=== PATIENT | male | born 1940 | race Caucasian/White ===

== ENCOUNTER 2019-10-24 12:50 | Outpatient (RCR) | payer MEDICARE, SELFPAY ==
[2019-10-24 15:10] VITALS: BP 128/78; PULSE 57; RESP 18; O2SAT 98; BMI 39.2
== END 2019-12-12 13:00 | disposition home or self-care (01) ==
PROVIDERS: PCP Internal Medicine
DX: J84.10 Pulmonary fibrosis, unspecified (principal)
CPT/HCPCS: G0239

== ENCOUNTER → 2020-11-27 01:47 | Outpatient (CLI) | payer MEDICARE, SELFPAY ==
[2020-11-27 20:24] LABS: SARS-CoV-2 RNA PCR Positive
== END ==
PROVIDERS: PCP Family Medicine; Visit Provider Nurse Practitioner Family
DX: U07.1 COVID-19 (principal); R68.89 Other general symptoms and signs
CPT/HCPCS: C9803; U0003; U0005

== ENCOUNTER 2025-02-28 15:05 | Emergency (ER) | payer MEDICARE, SELFPAY ==
[2025-02-28] VITALS (7 sets, daily range): BP systolic 108–144; BP diastolic 60–80; PULSE 60–100; RESP 13–24; TEMP 36.4; O2SAT 95–100
--- NOTE | ~2025-02-28 | CT_ITS ---
EXAMINATION: CT brain wo con DATE: 02/28/2025 16:53 INDICATION: Trauma due to fall. TECHNIQUE: Computed tomography (CT) of the head was performed without intravenous contrast. The mA was adjusted according to patient size. Iterative reconstruction technique was employed. The dose-length product was 605.33 mGy-cm. COMPARISON: None FINDINGS: No acute intracranial bleed or extra-axial collections. No ventriculomegaly. Age-appropriate cerebral cortical atrophy. Moderate chronic small vessel ischemic change of periventricular white matter. No acute cranial fractures. IMPRESSION: 1. No acute intracranial findings due to trauma. Chronic small vessel ischemic change of periventricular white matter. Reviewed, dictated and finalized at location T. GATION EXAMINER
--- NOTE | ~2025-02-28 | XR_ITS ---
EXAMINATION: XR shoulder RT min 2V DATE: 02/28/2025 17:02 INDICATION: Right shoulder pain post fall TECHNIQUE: AP internally and externally rotated and transscapular Y views of the right shoulder were obtained. COMPARISON: None FINDINGS: Normal alignment. No fracture.Mild glenohumeral osteoarthritis. Moderate acromioclavicular osteoarthritis. Moderate sized anterior subacromial spur. Soft tissues are unremarkable. Small right lung volume with airspace opacities in the upper and lower and most prominent in the mid lung zones. IMPRESSION: 1. Mild right glenohumeral and moderate acromioclavicular osteoarthritis. No acute osseous abnormality. 2. Airspace opacities throughout the right lung most promptly midlung zone with associated decreased lung volume which could represent pneumonia, pulmonary edema or chronic interstitial lung disease. Reviewed, dictated and finalized at location A. SSIONS COORDINATOR IMPRESSION: 1. Mild right glenohumeral and moderate acromioclavicular osteoarthritis. No ac [place] osseous abnormality. 2. Airspace opacities throughout the right lung most promptly midlung zone with associated decreased lung volume which could represent pneumonia, pulmonary ed sp or chronic interstitial lung disease.
--- NOTE | ~2025-02-28 | XR_ITS ---
EXAMINATION: XR hip RT 2V w AP pelvis, 02/28/2025 16:55 TANK SETTER HISTORY: fall, R hip pain COMPARISON: No comparisons available. Findings: No acute fracture or malalignment. Severe degenerative changes Soft tissues unremarkable. Impression: No acute fracture or malalignment. Reviewed, dictated and finalized at location P. SETTER Impression: No acute fracture or malalignment.
--- NOTE | ~2025-02-28 | CT_ITS ---
EXAMINATION: CT cervical spine wo con DATE: 02/28/2025 16:53 INDICATION: Trauma due to fall. TECHNIQUE: Computed tomography (CT) of the cervical spine was performed without intravenous contrast. Automated exposure control and iterative reconstruction technique were employed. The dose-length product was 195.30 mGy-cm. COMPARISON: None FINDINGS: No acute fractures of cervical vertebrae. No compromise of spinal canal due to trauma. Severe degenerative disc changes and facet arthropathy at multiple levels. Bony fusion at C5-6 level. Prominent osteophyte complex at C3-4 level causing significant degree of spinal stenosis and compromise of neural foramen. IMPRESSION: 1. No acute bony lesions of C-spine due to trauma. 2. Severe chronic disc changes at C4, C5-6, C6-7 and C7-T1 levels. Significant compromise of spinal canal by osteophyte complex at C3-4 level. If symptoms warrant further evaluation with MRI is recommended. Reviewed, dictated and finalized at location T. R CARRIER INSPECTOR IMPRESSION: 1. No acute bony lesions of C-spine due to trauma. 2. Severe chronic disc changes at C4, C5-6, C6-7 and C7-T1 levels. Significant compromise of spinal canal by osteophyte complex at C3-4 level. If symptoms war rant further evaluation with MRI is recommended.
--- NOTE | ~2025-02-28 | XR_ITS ---
EXAMINATION: XR chest 1V DATE: 02/28/2025 17:02 INDICATION: Trauma due to fall. TECHNIQUE: A single frontal view of the chest was obtained. COMPARISON: None. 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 Atherosclerotic aorta. Apparent, extensive honeycombing and chronic interstitial fibrosis. Patchy opacification in the mid right lung field and lower left lung field may represent chronic fibrosis. However pneumonia or pulmonary edema is not ruled out. IMPRESSION: 1. Limited evaluation due to lack of prior x-rays for comparison. 2. Cardiomegaly, atherosclerotic aorta and postoperative changes of the heart. 3 patchy honeycomb like opacities of mid right lung field and lower left lung field. Chronic fibrosis versus bilateral pneumonia. Comparison with prior x-rays is recommended. Please correlate with lab results. Follow-up x-rays are also recommended. Reviewed, dictated and finalized at location T. T WORKER IMPRESSION: 1. Limited evaluation due to lack of prior x-rays for comparison. 2. Cardiomegaly, atherosclerotic aorta and postoperative changes of the heart. 3 patchy honeycomb like opacities of mid right lung field and lower left lung f ield. Chronic fibrosis versus bilateral pneumonia. Comparison with prior x-rays is recommended. Please correlate with lab results. Follow-up x-rays are also r ecommended.
--- NOTE | 2025-02-28 16:46 | ED.FALL ---
HPI - Fall General Chief Complaint: Fall Stated Complaint: fall Time Seen by Provider: 02/28/25 15:53 Source: patient Mode of arrival: EMS Limitations: no limitations History of Present Illness HPI Narrative: Patient is an 84-year-old male, with past medical history of dementia, HTN, HLD, CAD, hypothyroidism, chronic hypoxic resp failure on 2-3L NC as needed, who presents to the ED via EMS with report of a fall. Patient is a resident of [facility]. Reports his foot got caught on a chair and he fell. He did hit his head. Denied LOC. Complains of pain to his right-sided neck, right shoulder, right hip. C-collar placed by EMS. Patient is not on any anticoagulation. Takes aspirin 81 mg daily. Denies chest pain, shortness breath, abdominal pain, numbness, lower back pain. Related Data Home Medications ?Medication ?Instructions ?Recorded ?Confirmed ?Last Taken ?Type aspirin 81 mg tablet,delayed 81 mg PO DAILY 07/23/20 07/24/20 Unknown History release (Adult Aspirin Regimen) atorvastatin 80 mg tablet 80 mg PO DAILY 07/23/20 07/24/20 Unknown History donepezil 10 mg tablet 10 mg PO QHS 07/23/20 07/24/20 Unknown History ezetimibe 10 mg tablet 10 mg PO DAILY 07/23/20 07/24/20 Unknown History finasteride 5 mg tablet 5 mg PO DAILY 07/23/20 07/24/20 Unknown History furosemide 40 mg tablet 40 mg PO QAM 07/23/20 07/24/20 Unknown History isosorbide dinitrate 30 mg tablet 30 mg PO BID 07/23/20 07/24/20 Unknown History levothyroxine 88 mcg capsule 88 mcg PO DAILY 07/23/20 07/24/20 Unknown History metoprolol succ 50 1 tablet PO DAILY 07/23/20 07/24/20 Unknown History mg-hydrochlorothiazide 12.5 mg tablet,ext.rel 24 hr [id number] 300 mcg-K 60 1 tablet PO DAILY 07/23/20 07/24/20 Unknown History mcg-lycop 600 mcg-lutein 300 mcg tablet (Centrum Silver Men) sertraline 100 mg tablet 100 mg PO DAILY 07/23/20 07/24/20 Unknown History Allergies Allergy/AdvReac Type Severity Reaction Status Date / Time No Known Allergies Allergy Verified 07/23/20 14:22 Review of Systems Review of Systems: All systems reviewed & are unremarkable except as noted in HPI. All systems reviewed & are unremarkable except as noted in HPI and below [facility] Past Medical History Medical History Abnormal platelets Enlarged prostate BMI 37.0-37.9, adult Surgical History Surgical History (Reviewed 02/28/25 @ 17: by Jovana Bledsoe PA-C) History of heart bypass surgery History of appendectomy Family History Family History (Reviewed 02/28/25 @ 17: by Jovana Bledsoe PA-C) Father Malignant neoplasm of prostate Acute myocardial infarction Mother Hip fracture CHF (congestive heart failure) Sibling Pancreatic cancer Dementia History of agent Louise exposure Social History Social History Smoking status: Never smoker Second hand tobacco smoke exposure: Yes Alcohol intake: never Substance use: never Substance use type: does not use Living arrangements: with family Occupation/Education: retired Additional occupation/education comments: [employer]. Gender identity (if verbalized by the patient): Male Exam Narrative: GENERAL: Elderly but well appearing, well-nourished, non-toxic, in no acute distress. HEAD: Normocephalic, atraumatic. NECK: No significant focal midline spinal tenderness. C-collar in place RESPIRATORY: Airway patent, respirations nonlabored. Clear to auscultation bilaterally, no rales, rhonchi, wheezing. CARDIOVASCULAR: Regular rate and rhythm without murmurs, rubs, or gallops. Peripheral pulses intact and easily palpable ABDOMINAL: Soft, nontender, nondistended. Normoactive BS. MUSCULOSKELETAL: Moves all extremities. No gross deformities. Mild TTP over R lateral hip joint. No significant tenderness over knees girma. Minimal tenderness over R anterior shoulder SKIN: Warm, dry, normal color. NEURO: A&O X2. Speech clear. Cranial nerves II-XII grossly intact. No ataxic movements. PSYCHIATRIC: Appropriate mood and affect. Normal interaction. Course Vital Signs Vital signs: Vital Signs Temperature 97.6 F 02/28/25 15:08 Pulse Rate 100 02/28/25 15:08 Respiratory Rate 16 02/28/25 15:08 Blood Pressure 108/62 02/28/25 15:08 Pulse Oximetry 95 02/28/25 15:08 Oxygen Delivery Nasal Cannula 02/28/25 15:08 Oxygen Flow Rate 2 02/28/25 15:08 Temperature 97.6 F 02/28/25 15:08 Pulse Rate 66 02/28/25 18:15 Respiratory Rate 14 02/28/25 18:15 Blood Pressure 144/79 H 02/28/25 18:15 Pulse Oximetry 97 02/28/25 18:15 Oxygen Delivery Nasal Cannula 02/28/25 15:08 Oxygen Flow Rate 2 02/28/25 15:08 MDM MDM Narrative Medical decision making narrative: Patient presented to ED status post ground level mechanical fall with head injury, pain to right hip. Vital signs stable upon arrival. Patient neurologically intact at baseline, no appreciable focal deficits. History of dementia, A&O x2. Unsure of year. Chronically does wear home oxygen as needed. Oxygen today is stable on this. Hx of pulm fibrosis. Denying any shortness of breath or CP. CT brain and cervical spine without acute traumatic findings. Does show severe chronic disc changes of cervical spine. No acute findings. Chest x-ray w/ patchy honeycomb opacities, possible pulm fibrosis vs PNA. No acute resp complaints by patient. No recent fever/cough. He does have hx of interstitial lung disease/fibrosis per records. Likely all chronic findings. Shoulder x-ray negative X-ray of right hip/pelvis w/o acute fx Discussed imaging findings with patient, overall reassuring workup. Safe for discharge back to assisted. Has remained stable throughout ED stay. Has not required anything for pain control. Advised he may be sore over the next few days. Otherwise resting very comfortably. Given strict return precautions. Discharged in stable condition. Differential Diagnosis Differential Diagnosis: Hip fracture, hip contusion, skull fracture, intracranial hemorrhage, musculoskeletal strain Medical Records I have reviewed the following patient records and this information was taken into consideration when formulating the assessment and plan.: previous labs, previous ER visits, previous hospitalizations and previous clinic visits Imaging Data Attestation: I personally reviewed and interpreted this imaging study as follows: Radiologist's impression: ITS Impressions Head CT 02/28/25 16:53 IMPRESSION: 1. No acute intracranial findings due to trauma. Chronic small vessel ischemic change of periventricular white matter. Cervical Spine CT 02/28/25 16:55 IMPRESSION: 1. No acute bony lesions of C-spine due to trauma. 2. Severe chronic disc changes at C4, C5-6, C6-7 and C7-T1 levels. Significant compromise of spinal canal by osteophyte complex at C3-4 level. If symptoms warrant further evaluation with MRI is recommended. Chest X-Ray 02/28/25 17:03 IMPRESSION: 1. Limited evaluation due to lack of prior x-rays for comparison. 2. Cardiomegaly, atherosclerotic aorta and postoperative changes of the heart. 3 patchy honeycomb like opacities of mid right lung field and lower left lung field. Chronic fibrosis versus bilateral pneumonia. Comparison with prior x-rays is recommended. Please correlate with lab results. Follow-up x-rays are also recommended. Shoulder X-Ray 02/28/25 17:08 IMPRESSION: 1. Mild right glenohumeral and moderate acromioclavicular osteoarthritis. No acute osseous abnormality. 2. Airspace opacities throughout the right lung most promptly midlung zone with associated decreased lung volume which could represent pneumonia, pulmonary edema or chronic interstitial lung disease. Hip/Pelvis X-Ray 02/28/25 17:09 Impression: No acute fracture or malalignment. Discharge Plan Discharge Clinical Impression: Fall from ground level, Closed head injury, Cervical strain, Strain of right hip Patient Disposition: [facility]As[facility] Living Condition: Stable Instructions: Antibiotic Form, Head Injury (ED), Hip Sprain (ED), Shoulder Sprain (ED) Additional Instructions: Patient's imaging did not show any evidence of fracture or traumatic findings. He may be sore over the next few days. Recommend Tylenol as needed for pain, ice to areas of pain. Follow-up with primary care doctor for further evaluation if needed. Return patient to the ED if you experiences recurrent fall or injury, severe pain, numbness, severe dizziness, passing out, unable to keep down food or drink, or any other symptoms of concern. Patient Language: Hungarian Prescriptions: No Action isosorbide dinitrate 30 mg tablet 30 mg PO BID Rx Instructions: allow nitrate-free interval of 12-14 hrs per 24-hr period atorvastatin 80 mg tablet 80 mg PO DAILY furosemide 40 mg tablet 40 mg PO QAM ezetimibe 10 mg tablet 10 mg PO DAILY metoprolol blanc-hydrochlorothiaz 50-12.5 mg tablet extended release 24 hr 1 tablet PO DAILY levothyroxine 88 mcg capsule 88 mcg PO DAILY finasteride 5 mg tablet 5 mg PO DAILY donepezil 10 mg tablet 10 mg PO QHS sertraline 100 mg tablet 100 mg PO DAILY aspirin [Adult Aspirin Regimen] 81 mg tablet,delayed release (DR/EC) 81 mg PO DAILY Centrum Silver Men 300-600-300 mcg tablet 1 tablet PO DAILY Follow-up/Referrals: Solo Salazar MD [Primary Care Provider, Family Practice] Time of Disposition: 17:17
--- NOTE | 2025-02-28 17:53 | PC.NURSE ---
Attempted to call [facility] at this time, no answer.
--- OUTSIDE RECORDS SUMMARY | 2025-02-28 19:57 | XMS_ITS | Continuity of Care Document ---
Author Organization [place] - [facility], [facility] [place] Address [address] [place] [address] Care Team Providers Care Merchandising Director Name Role Phone [facility] FAX OTHER MARTI YARBROUGH Primary Care Provider Assessment Encounter Date Assessment Date Assessment LastModified by Organization Details LastModified Time 02/12/2025 02/12/2025 Labs in AM. HRs/BPs improved. armand Not available 02/12/2025 17:18:59 Plan of Treatment Reminders Order Date Submit Date Provider Last Modified By Organization Details Last Modified Time Details Appointments None record ed. Lab None record ed. Referral None record ed. Procedures None record ed. Surgeries None record ed. Imaging None record ed. Medication Orders None record ed. Patient TargetsNo targets recorded. Patient Instructions Encounter Date Encounter Id Patient Instructions Last Modified By Organization Details Last Modified Time 02/12/2025 [id number] I spent 38 minutes providing care to the patient today. More than 50% of that time was spent in discussing the expected course of the disease, discussing prognosis, coordinating care and counseling of the patient/family. armand Not available 02/12/2025 17:20:05 Reason for Referral None Reported. Results Created Date Observation Date Name Description Value Unit Range Abnormal Flag Note LastModifiedBy Organization Detail LastModifiedTime 02/05/2002/04/2025 XR, chest , 2 view No observ ation record ed. [facility]) [address] [place], [place], [address], 02/06/2025 09:30:57 Result Notes None recorded. Procedures Surgical History Date Name Laterality Status Provider Name and Address Organization Details Recorded Time appendectomy completed Kenneth Juárez [facility] 01/24/2025 09:26:32 coronary artery bypass graft completed Kenneth Juárez [facility] 01/24/2025 09:26:42 Carpal Tunnel Release completed Kenneth Juárez [facility] 01/24/2025 09:27:20 [facility] 01/24/2025 09:27:28 Imaging Results None recorded. Procedure Notes None recorded. Medical Equipment None Reported. Allergies Allergen ID Allergen Name Allergen Category Reaction Reaction Severity Criticality Documentation Date Start Date Code Code System Note Provider Name and Address Organization Details Recorded Time 87934 codeine medicatio n Not available Not available Not available 01/24/2025 2670 [facility] 54435 Product containin g penicilli n (product) medicatio n Not available Not available Not available 01/24/2025 49259 8001 SNOMED [facility] Medications Name Sig Start Date Stop Date Status Note LastModified by Organization Details LastModified Time atorvastatin 80 mg tablet Take 1 tablet every day by oral route. 2024 active Not Available Not Available Not Avai lable metoprolol succinate ER 50 mg tablet,exten ded release 24 hr Take 1 tablet every day by oral route. 02/06 completed Not Available Not Available Not Available Lasix 40 mg tablet Take 1 tablet every day by oral route. 2024 active Not Available Not Available Not Avai lable sertraline 100 mg tablet Take 2 tablets every day by oral route. 2024 active Not Available Not Available Not Avai lable clopidogrel 75 mg tablet Take 1 tablet every day by oral route. 2024 active Not Available Not Available Not Avai lable spironolacto ne 25 mg tablet Take 1 tablet every day by oral route. 2024 active Not Available Not Available Not Avai lable levothyroxin e 88 mcg tablet Take 1 tablet every day by oral route. 2024 active Not Available Not Available Not Avai lable metoprolol succinate ER 25 mg tablet,exten ded release 24 hr Take 0.5 tablets every day by oral route. 2024 active Not Available Not Available Not Avai lable empagliflozi n 10 mg tablet Take 1 tablet every day by oral route. 2024 active Not Available Not Available Not Avai lable metoprolol succinate ER 25 mg capsule sprinkle, ext. release 24 hr Take 1 capsule every day by oral route. 02/08 completed Not Available Not Available Not Available Vitals Date Recorded Body height Heart rate Body temperature Respiratory rate Oxygen saturation Body mass index (BMI) Body weight Systolic And Diastolic Provider Name and Address Organization Details Last Updated DateTime 165.1 cm 64 /min 98 [degF] 18 /min 97 % 27.1 kg/m2 87880.5 6 g 132/66 mm[Hg] [place] [address] [place], [address] , [place] - [facility] 17:13:55 Social History Question Answer Notes LastModified by [employer] Details LastModified Time Tobacco Smoking Status Never Smoker Kenneth Juárez [facility], [place] - [facility] 01/24/2025 09:28:08 What Is Your Code Status? DNR [email or web address] Information not available 01/24/2025 Sex: Unknown Functional Status Question Answer Note LastModified by [employer] Details LastModified Time Do you use any illicit or recreational drugs? No Information not available 01/24/2025 What is your level of alcohol consumption? None Information not available 01/24/2025 Mental Status None recorded. Family History Nothing Reported. Medical History Condition Response Coronary Artery Disease (CAD) Y Vitamin B12 Deficiency Y Benign Prostatic Hyperplasia (BPH) Y Congestive Heart Failure (CHF) Y Asthma Y Sleep Apnea / KATINA Y Hypertension Y Past Encounters Encounter ID Performer Location Encounter Start Date Encounter Closed Date Diagnosis/Indication Diagnosis SNOMED-CT Code Diagnosis ICD10 Code Diagnosis IMO Codes Diagnosis Note [id number] Bettina Yan DO [place] [address] [place] [address] 01/24/2025 21:35:55 01/31/2025 08:10:01 Interstitial lung disease 230320659 J84.9 420062 see above..... 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 196527340 I25.810 41712533 currently no chest pains/p CABG and PCIcontinu e plavix, betablocke r and statin therapyout patient f/u with cardiology as scheduled Benign pro static hyperplasia 501303103 N40.0 90644236 currently no urinary symptoms - he has not been discharged on any meds related to thiswill request home medication list to confirm no usual medication smonitor clinically Hypertensi ve heart disease with congestive heart failure 0423955 I11.0 I50.32 25058235 continue diuretics, betablocke rmonitor blood pressures and adjust meds as clinically indicated Obstructiv e sleep apnea syndrome 94117807 G47.33 762094 continue nighttime cpap with O2 bleed Cobalamin deficiency 190 674224 E53.8 85605 continue replacemen t therapy Acute-on-c hronic respiratory failure 55568376 J96.21 85083269 related to ILD and CHFimprove d with IV diuretics and an increase in his supplement al O2 up to 6 liters/min [place] during his hospitaliz ation now back to usual baseline of 2 liters/min [place] not appear he was treated with antibiotic s or steroids Hypothyroidism 62448443 E03.9 06018108 presumed stable - [facility] checking thyroid studies during his stay if they were not checked during recent hospitaliz ation Impaired cognition 29812 6002 R41.89 251068 no diagnosis of dementia - [facility] for reversible causeswill have speech therapy follow while here Major depr essive disorder 830459751 F32.9 1137600253 continue sertraline Physical deconditioning 8918002287 9102 R53.81 789719 related to advanced age, recent hospitaliz ation, comorbidit iestherapi es have been initiated - he plans to return home alone upon d/c from SNF [id number] Bettina Farrah, DO [facility] [address] [place] [address] 01/25/2025 11:01:02 01/31/2025 08:08:43 Josmv-mm-wvegjpk respiratory failure 84829765 J96.21 61555921 Sec to ILD and CHF. Improved with IV diuretics and an increase in his supplement al O2 up to 6 liters/min [place] during his hospitaliz ation. Now back to usual baseline of 2 liters/min [place]. Does not appear he was treated with antibiotic s or steroids.C ontinue therapies and oxygen supplement ation.RT to follow.[facility] if he follows with pulmonary as an outpatient . Interstiti al lung disease 131843212 J84.9 179146 SEE ABOVE... 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 Currently no chest pain.Jane nue Plavix, Metoprolol , and statin.F/U with cards as above. Benign pro static hyperplasia 929818853 N40.0 77906308 Currently no urinary symptoms. He was not discharged on any meds related to this.Reque sted home medication list to confirm no daily medication s.Monitor clinically . Hypertensi ve heart disease with congestive heart failure 4356023 I11.0 I50.31 38104919 Improved with diuresis.C ontinue Jardiance (new), Metoprolol , Spironolac tone, and PRN Lasix.Cont inue supplement oxygen as above.Cont inue to trend blood pressures, monitor lytes and renal function, and adjust meds as clinically indicated. F/U with cards on 02/01. Obstructiv e sleep apnea syndrome 30193460 G47.33 323007 Stable. Continue nighttime cpap with O2 bleed. Cobalamin deficiency 190 565565 E53.8 51220 Presumed stable. Continue supplement . Hypothyroidism 29847018 E03.9 15830546 Presumed stable. Continue SynthroidM ight consider checking thyroid studies during his stay if they were not checked during recent hospitaliz ation. Impaired cognition 88485 6002 R41.89 511950 No former diagnosis of dementia. Head imaging noted moderate atrophy and ischemic small vessel disease.M onitor for reversible causes.ST is following. Major depr essive disorder 003486399 F32.9 2286424547 Stable. Continue Sertraline . Monitor moods. Physical deconditioning 3688474842 9102 R53.81 163121 Related to advanced age, recent hospitaliz ation, comorbidit ies.Contin ue therapies. He plans to return home alone upon d/c from SNF. [id number] Bettina Yan, DO [facility] [address] [place] [address] 01/30/2025 09:58:45 01/31/2025 08:09:21 Hwamq-ez-jjjqycm respiratory failure 81839230 J96.21 67000903 Sec to ILD and CHF. Improved with IV diuretics and an increase in his supplement al O2 up to 6 liters/min [place] during his hospitaliz ation. Now back to usual baseline of 2 liters/min [place]. Does not appear he was treated with antibiotic s or steroids.C ontinue therapies and oxygen supplement ation.RT to follow.[facility] if he follows with pulmonary as an outpatient . Hypertensi ve heart disease with congestive heart failure 6865759 I11.0 I50.31 13335021 Improved with diuresis.C ontinue Jardiance (new), Metoprolol , Spironolac tone, and PRN Lasix.Cont inue supplement oxygen as above.Cont inue to trend blood pressures, monitor lytes and renal function, and adjust meds as clinically indicated. F/U with cards on 02/01. 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 Currently no chest pain.Jane nue Plavix, Metoprolol , and statin.F/U with cards as above. Interstiti al lung disease 173863189 J84.9 905591 SEE ABOVE... Benign pro static hyperplasia 676610045 N40.0 54593562 Currently no urinary symptoms. He was not discharged on any meds related to this.Reque sted home medication list to confirm no daily medication s.Monitor clinically . Hypothyroidism 73802020 E03.9 83756749 Presumed stable. Continue SynthroidC hecking thyroid panel in AM. Cobalamin deficiency 190 501781 E53.8 18925 Presumed stable. Continue supplement . Obstructiv e sleep apnea syndrome 45957718 G47.33 646129 Stable. Continue nighttime cpap with O2 bleed. Impaired cognition 60361 6002 R41.89 194539 No former diagnosis of dementia. Head imaging noted moderate atrophy and ischemic small vessel disease.M onitor for reversible causes.ST is following. Appears more confused than he has previously -- checking UA and labs in AM. Major depr essive disorder 593045803 F32.9 8265695267 Stable. Continue Sertraline . Monitor moods. Physical deconditioning 4520432354 9102 R53.81 828033 Related to advanced age, recent hospitaliz ation, comorbidit ies.Contin ue therapies. He plans to return home alone upon d/c from SNF. [id number] Bettina Yan, DO [address] [address] 02/01/2025 12:27:22 02/06/2025 10:25:29 Swmsl-rg-asummew respiratory failure 17326755 J96.21 48315451 Sec to ILD and CHF. Improved with IV diuretics and an increase in his supplement al O2 up to 6 liters/min [place] during his hospitaliz ation. Now back to usual baseline of 2 liters/min [place]. Does not appear he was treated with antibiotic s or steroids.C ontinue therapies and oxygen supplement ation.RT to follow.[facility] le[facility] if he follows with pulmonary as an outpatient . Hypertensi ve heart disease with congestive heart failure 1982944 I11.0 I50.31 88015753 Improved with diuresis.C ontinue Jardiance (new), Metoprolol , Spironolac tone, and PRN Lasix.Cont inue supplement oxygen as above.Cont inue to trend blood pressures, monitor lytes and renal function, and adjust meds as clinically indicated. F/U with cards today (02/01). 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 Currently no chest pain.Jane nue Plavix, Metoprolol , and statin.F/U with cards as above. Interstiti al lung disease 955891308 J84.9 586281 SEE ABOVE... Benign pro static hyperplasia 379646878 N40.0 90343176 Currently no urinary symptoms. He was not discharged on any meds related to this.Reque sted home medication list to confirm no daily medication s.Monitor clinically . Hypothyroidism 91500289 E03.9 87076147 01/31/25 = TSH 1.176, Free T4 1.14Stable . Continue Synthroid. Cobalamin deficiency 190 482814 E53.8 01999 Presumed stable. Continue supplement . Obstructiv e sleep apnea syndrome 26369454 G47.33 736902 Stable. Continue nighttime cpap with O2 bleed. Impaired cognition 75431 6002 R41.89 698942 No former diagnosis of dementia. Head imaging noted moderate atrophy and ischemic small vessel disease.S T is following. Labs & UA were unremarkab le. Continue to monitor for reversible causes. Pt remains quite confused. Major depr essive disorder 453306445 F32.9 9841671225 Stable. Continue Sertraline . Monitor moods. Physical deconditioning 3854936231 9102 R53.81 905940 Related to advanced age, recent hospitaliz ation, and comorbidit ies.Contin ue therapies. He plans to return home alone upon d/c from SNF. [id number] Bettina Yan, [address] [address] 02/04/2025 21:09:40 02/06/2025 10:26:09 Ronoi-lw-bfrrnlf respiratory failure 39964178 J96.21 94736258 Sec to ILD and CHF. Improved with IV diuretics and an increase in his supplement al O2 up to 6 liters/min [place] during his hospitaliz ation. Now back to usual baseline of 2 liters/min [place]. Does not appear he was treated with antibiotic s or steroids.W ill check CXR in light of cough, weight gain and edemawill schedule lasix routinely for now and monitor clinically RT to follow.[facility] if he follows with pulmonary as an outpatient . Hypertensi ve heart disease with congestive heart failure 2522051 I11.0 I50.31 95145201 Improved with diuresis.C ontinue Jardiance (new) and Metoprolol (decreasin g dose due to bradycardi a, hypotensio n and plans to schedule lasix)Cont inue spironolac tone and schedule lasix routinely for nowContinu e supplement oxygen as above - he remains on 2 liters/min uteContinu e to trend blood pressures, monitor lytes and renal function, and adjust meds as clinically indicated. 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 Currently no chest pain.Jane nue Plavix, Metoprolol , and statin.F/U with cards as above. Interstiti al lung disease 382829423 J84.9 211768 SEE ABOVE... Benign pro static hyperplasia 825235944 N40.0 61246600 Currently no urinary symptoms. He was not discharged on any meds related to this.Monit or clinically . Hypothyroidism 79691099 E03.9 28263193 01/31/25 = TSH 1.176, Free T4 1.14Stable . Continue Synthroid. Cobalamin deficiency 190 536962 E53.8 26552 Presumed stable. Continue supplement . Obstructiv e sleep apnea syndrome 83058637 G47.33 111550 Stable. Continue nighttime cpap with O2 bleed. Impaired cognition 75769 6002 R41.89 030251 No former diagnosis of dementia. Head imaging noted moderate atrophy and ischemic small vessel disease.S T is following. Labs & UA were unremarkab le. Continue to monitor for reversible causes. Pt remains quite confused. Major depr essive disorder 638375842 F32.9 2293935010 Stable. Continue Sertraline . Monitor moods. Physical deconditioning 8029698855 9102 R53.81 026394 Related to advanced age, recent hospitaliz ation, and comorbidit ies.Contin ue therapies. He plans to return home alone upon d/c from SNF - discharge is set for 02/13 [id number] Bettina Yan DO [place] [address] [place] [address] 02/06/2025 10:10:23 02/08/2025 21:10:03 Juzaj-so-bykxtkz respiratory failure 60060325 J96.21 76221681 Sec to ILD and CHF. Improved with IV diuretics and an increase in his supplement al O2 up to 6 liters/min [place] during his hospitaliz ation. Now back to usual baseline of 2 liters/min [place]. Does not appear he was treated with antibiotic s or steroids.P t developed worsening of cough on 02/04. Flu & Covid swabs negative.C XR was indetermin ate, noting pneumonia vs. ILD, which is what CT showed back on 01/19.Labs drawn, Procalcito sid <0.1, low suspicion for pneumonia at this point.Sche dule Lasix routinely starting 02/05 and monitoring clinically RT following. Unclear if he follows with pulmonary as an outpatient . Hypertensi ve heart disease with congestive heart failure 3448167 I11.0 I50.31 31910171 Improved with diuresis.C ontinue Jardiance (new), Spironolac tone, Lasix (scheduled daily), and Metoprolol (reduced due to bradycardi a).Continu e supplement oxygen as above - he remains on 2 liters/min uteContinu e to trend blood pressures, monitor lytes and renal function, and adjust meds as clinically indicated. F/U with cards last week without new orders. 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 Currently no chest pain.Jane nue Plavix, Metoprolol , and statin.F/U with cards as above. Interstiti al lung disease 003297708 J84.9 663198 SEE ABOVE... Benign pro static hyperplasia 792943433 N40.0 02583851 Currently no urinary symptoms. He was not discharged on any meds related to this.Monit or clinically . Hypothyroidism 64062616 E03.9 61325360 01/31/25 = TSH 1.176, Free T4 1.14Stable . Continue Synthroid. Cobalamin deficiency 190 090731 E53.8 33620 Presumed stable. Continue supplement . Obstructiv e sleep apnea syndrome 77996233 G47.33 610904 Stable. Continue nighttime cpap with O2 bleed. Impaired cognition 13588 6002 R41.89 057685 No former diagnosis of dementia. Head imaging noted moderate atrophy and ischemic small vessel disease.S T is following. SLUMS score on 02/01 was 6/30.Labs & UA were unremarkab le. Continue to monitor for reversible causes. Pt remains quite confused. Major depr essive disorder 807524609 F32.9 0070803128 Stable. Continue Sertraline . Monitor moods. Physical deconditioning 6262294945 9102 R53.81 073601 Related to advanced age, recent hospitaliz ation, and comorbidit ies.Contin ue therapies. Goal is to return home alone upon d/c from SNF -- unclear if this continues to be a safe option due to pt's confusion. [id number] Bettina Yan, [facility] [address] [place] [address] 02/08/2025 13:19:52 02/08/2025 21:10:55 Tczqx-so-ldtaxne respiratory failure 70680605 J96.21 30699435 Sec to ILD and CHF. Improved with IV diuretics and an increase in his supplement al O2 up to 6 liters/min [place] during his hospitaliz ation. Now back to usual baseline of 2 liters/min [place]. Does not appear he was treated with antibiotic s or steroids.P t developed worsening of cough on 02/04. Flu & Covid swabs negative.C XR was indetermin ate, noting pneumonia vs. ILD, which is what CT showed back on 01/19.Labs drawn, Procalcito sid <0.1, low suspicion for pneumonia at this point.Sche dule Lasix routinely starting 02/05 and monitoring clinically RT following. Unclear if he follows with pulmonary as an outpatient . Will need to establish upon d/c. Hypertensi ve heart disease with congestive heart failure 9294315 I11.0 I50.31 84783144 Improved with diuresis. BPs have been low along with bradycardi a. Reduced Metoprolol but soft BPs remain but HRs improved to 70s.Contin ue Jardiance (new), Spironolac tone, Lasix (scheduled daily), and Metoprolol (reduced). Continue supplement oxygen as above - he remains on 2 liters/min uteContinu e to trend blood pressures, monitor lytes and renal function, and adjust meds as clinically indicated. F/U with cards last week without new orders. 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 Currently no chest pain.Jane nue Plavix, Metoprolol (reduced), and statin.F/U with cards as above. Interstiti al lung disease 592251340 J84.9 137218 SEE ABOVE... Benign pro static hyperplasia 242557373 N40.0 24750615 Currently no urinary symptoms. He was not discharged on any meds related to this.Monit or clinically . Hypothyroidism 58543592 E03.9 35045733 01/31/25 = TSH 1.176, Free T4 1.14Stable . Continue Synthroid. Cobalamin deficiency 190 828196 E53.8 68573 Presumed stable. Continue supplement . Obstructiv e sleep apnea syndrome 15093688 G47.33 802761 Stable. Continue nighttime cpap with O2 bleed. Impaired cognition 54736 6002 R41.89 243142 No former diagnosis of dementia. Head imaging noted moderate atrophy and ischemic small vessel disease.S T is following. SLUMS score on 02/01 was 6/30.Labs & UA were unremarkab le. Continue to monitor for reversible causes. Pt remains quite confused. Major depr essive disorder 824656875 F32.9 3731061757 Stable. Continue Sertraline . Monitor moods. Physical deconditioning 8936336708 9102 R53.81 531234 Related to advanced age, recent hospitaliz ation, and comorbidit ies.Contin ue therapies. Goal is to return home alone upon d/c from SNF -- unclear if this continues to be a safe option due to pt's confusion. [id number] Bettina Yan, DO [address] [address] 02/12/2025 10:13:23 02/15/2025 20:41:54 Uplyw-hw-fceuwtd respiratory failure 70031598 J96.21 32116660 Sec to ILD and CHF. Improved with IV diuretics and an increase in his supplement al O2 up to 6 liters/min [place] during his hospitaliz ation. Now back to usual baseline of 2 liters/min [place]. Does not appear he was treated with antibiotic s or steroids.P t developed worsening of cough on 02/04. Flu & Covid swabs negative.C XR was indetermin ate, noting pneumonia vs. ILD, which is what CT showed back on 01/19.Labs drawn, Procalcito sid <0.1, low suspicion for pneumonia at this point.Sche dule Lasix routinely starting 02/05 and monitoring clinically RT following. Unclear if he follows with pulmonary as an outpatient . Will need to establish upon d/c. Hypertensi ve heart disease with congestive heart failure 2196295 I11.0 I50.31 36585610 Improved with diuresis. BPs were low along with bradycardi a. Reduced Metoprolol twice with improvemen t.Continue Jardiance (new), Spironolac tone, Lasix (scheduled daily), and Metoprolol (reduced). Continue supplement oxygen as above - he remains on 2 liters/min uteContinu e to trend blood pressures, monitor lytes and renal function, and adjust meds as clinically indicated. F/U with cards last week without new orders. 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 Currently no chest pain.Jane nue Plavix, Metoprolol (reduced), and statin.F/U with cards as above. Interstiti al lung disease [id number] J84.9 [id number] SEE ABOVE... Benign pro static hyperplasia [id number] N40.0 [id number] Currently no urinary symptoms. He was not discharged on any meds related to this.Monit or clinically . Hypothyroidism [id number] E03.9 [id number] 01/31/25 = TSH 1.176, Free T4 1.14Stable . Continue Synthroid. Cobalamin deficiency 190 652178 E53.8 57707 Presumed stable. Continue supplement . Obstructiv e sleep apnea syndrome [id number] G47.33 169711 Stable. Continue nighttime cpap with O2 bleed. Impaired cognition [id number] R41.89 [id number] No former diagnosis of dementia. Head imaging noted moderate atrophy and ischemic small vessel disease.S T is following. SLUMS score on 02/01 was 6/30.Labs & UA were unremarkab le. Continue to monitor for reversible causes. Pt remains quite confused. Major depr essive disorder [id number] F32.9 [id number] Stable. Continue Sertraline . Monitor moods. Physical deconditioning [id number] 9102 R53.81 [id number] Related to advanced age, recent hospitaliz ation, and comorbidit ies.Contin ue therapies. Goal is to return home alone upon d/c from SNF -- unclear if this continues to be a safe option due to pt's confusion. Health Concerns Section Related Observation LastModified by Organization Detai ls LastModified Time None Recorded Concern Status LastModified by Organization Details LastModified Time None Recorded Payers Encounter Date Sequence Insurance Name Policy Number Policy Fernandez Covered Member ID Fernandez Member ID Guarantor Name 02/12/2025 2 [place] [id number] Abbe Jimenez [id number] Abbe Jimenez 02/12/2025 1 [place] Abbe Jimenez [id number] Abbe Jimenez Notes Date Note Type Note Provider Name and Address Organization Details Recorded Time 02/12/2025 text/html F/U acute on chronic respiratory failure sec to CHF exacerbation & chronic interstitial lung disease, weakness/deconditio chemo, and chronic medical conditions.---Abbe is sitting up in his bedside chair this afternoon. He is a fair historian with some forgetfulness/confu roman. Respiratory status stable with supplemental O2 at 2 liters. He got some extra aldactone this am due to a nursing med error. He has not noticed a subsequent increase in urination. No new concerns / complaints.---Brian is seated in his recliner in his room, doing well today, without concerns or pain to report. He is eating black licorice, has 2 large bags by his bedside, which he notes is his favorite candy. I do express to him a need to not overdue black licorice given it's known effects on cardiac function/electrolyt es. He says he has never heard this before and will ensure he does not exceed 2 oz/day. I request nursing educate family, as well, in case they are unaware. VSS. Staff is without concerns today. Per therapy notes = gait training with FWW for up to 110 ft with CGA with cues for toe clearance and heel strike at IC to reduce shuffling gait pattern. Pt limited by sob. cued for pursed lip breathing. STS from WC to FWW practice with SBA. minx1 with pt standing on uneven surface of airex.---01/30/25P mc is seated in his w/c in his room, having packed up all his belongings and put them on his bed. He is sitting on his rollator. He tells me his and son are on their way to take him home. I do not correct him as I have not yet had a change to talk to the SW but did not believe he had a discharge planned for today. After I leave the room, I confirm that he is not set to discharge today. Nursing notes that he has been more confused as of late and more insistent. Labwork is ordered for tomorrow, will add thyroid panel and UA. He does report some urinary frequency but otherwise denies dysuria or change in quality of his urine (although unclear if he would be able to report this). VSS. He continues on 2-3L NC. Staff is without concerns today beyond aforementioned. Per therapy notes = Conducted gait training with FWW plus wc/O2 follow CGA ~125' cues for breathing techniques. sit/stand CGA Standing balance techniques---02/01Brian is seated in his w/c in his room, doing fairly well, confused, tells me that his is on a cruise somewhere (she is actually ). He asks if his son knows he is here, and I reassure her that he does. He denies pain or concerns today. He reports his respiratory status is at baseline and denies symptoms. Continues on 2L per NC. VSS. Staff is without concerns today. Per therapy notes = Patient ambulated 200 ft x2 on level surfaces with a rollator, requiring SBA.---02/04/25I am asked to see the patient today as nursing reports he is coughing and seems more confused than usual. Nursing is also concerned with weight gain and increased LE edema. Nursing reports he is refusing to sleep in bed and insists on sitting up in his W/C all day with legs down. The patient tells me he is feeling fine. He thinks his cough and swelling are usual. He remains on supplemental O2 at 2 liters. He is noted to have an occasional dry cough during this exam. Blood pressure has been low, pulse in the 50s and 60s - metoprolol was held this am.---11/18/25Paul is doing well today, confused but without concerns or complaints today, even when prompted in regards to his respiratory status/cough. His lungs are diminished but clear. He remains on 2L NC continuously. VSS, lowered dose of Metoprolol started today in response to HR in 50s. Staff is without concerns today. Per therapy notes = Conducted gait training with FWW ~100' CGA ccues for breathing techniques and posture.--- 5Paublanca is doing well today, seated in his recliner in his room, without pain or concerns to report. He continues to deny any respiratory concerns. Nursing reports his SBP was 95 & 103 this morning. They will proceed with his diuretics but are questioning his Metoprolo. HR is 70. Otherwise VSS. Presently wearing 3L NC. Staff is without concerns today. Per therapy notes = Patient ambulated 200 ft on level surfaces with a FWW, requiring CGA. Patient required cueing for upright posture and navigation. Pt performed sit to stand and pivot transfers requiring CGA-SBA.--- 5Paublanca is fairing well today, confused but pleasant, without pain or concerns to report today. 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 He remains quite confused and thinks he is discharging home today. He is pleasant and redirectable, however. He did fall early this morning. Per nursing note: Patient was in his room sitting in his wheelchair. He leaned over to pick something up off of the floor and flipped the wheelchair over onto his left side. Patient denies any pain or discomfort at this time. No redness or bruising currently noted. ROM WNL for resident. He was assisted to his feet then recliner by nurse x1 and [employer] x1. We discuss his fall, which he does not recall, but he tells me that he is not allowed to stand up on his own, which I reinforce by showing him where his call light is (at his hip). VSS. Staff is without concerns today. Per therapy notes = Graded skilled interventions focused on transfer training to increase functional task performance 2 sets 5 reps requiring CGA using wheeled walker and fading verbal instruction required due to compromised balance and strength to promote increased safety and independence with transfer to toilet and EOB. Anahi Valladares, BRYNN [address] [facility], [place], [phone], [facility] - [facility] 02/12/2025 17:20:13
--- OUTSIDE RECORDS SUMMARY | 2025-02-28 19:57 | XMS_ITS | Continuity of Care Document ---
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 Not available 02/06/2025 18:42:27 Plan of Treatment Reminders Order Date Submit [...] Modified By Organization Details Last Modified Time 02/06/2025 [id number] I spent 37 minutes providing care to the patient today. More than 50% of that time was spent in discussing the expected course of the disease, discussing prognosis, coordinating care and counseling of the patient/family. Not available 02/06/2025 18:42:06 Reason for Referral None Reported. Results Created Date Observation Date Name Description Value Unit Range Abnormal Flag Note LastModifiedBy Organization Detail LastModifiedTime 02/05/2002/04/2025 XR, chest , 2 view No observ ation record ed. [email or web address] ([employer] [employer]) [address] [place], [place], [address], 02/06/2025 09:30:57 Result Notes None recorded. Procedures Surgical History Date Name Laterality Status Provider Name and Address Organization Details Recorded Time appendectomy completed Kenneth Juárez [facility] 01/24/2025 09:26:32 coronary artery bypass graft completed Kenneth Juárez [facility] 01/24/2025 09:26:42 Carpal Tunnel Release completed Kenneth Juárez [facility] 01/24/2025 09:27:20 [facility] 01/24/2025 09:27:28 Imaging Results None recorded. Procedure Notes None recorded. Medical Equipment None Reported. Allergies Allergen ID Allergen Name Allergen Category Reaction Reaction Severity Criticality Documentation Date Start Date Code Code System Note Provider Name and Address Organization Details Recorded Time 70707 codeine medicatio n Not available Not available Not available 01/24/2025 2670 [facility] 20184 Product containin g penicilli n (product) medicatio n Not available Not available Not available 01/24/2025 50064 8001 [facility]ED [facility] Medications Name Sig Start [...] Not Available Vitals Date Recorded Body height Body mass index (BMI) Body weight Oxygen saturation Inhaled oxygen flow rate Respiratory rate Body temperature Heart rate Systolic And Diastolic Provider Name and Address Organization Details Last Updated DateTime 165.1 cm 27.9 kg/m2 70335.3 6 g 100 % 3 L/min 16 /min 98.2 [degF] 69 /min 129/63 mm[Hg] [place] [address] [place], [address] , [place] - [facility] 17:42:57 Social History Question Answer Notes LastModified by [facility] Details LastModified Time Tobacco Smoking Status Never Smoker Kenneth Juárez [facility], [place] - [facility] 01/24/2025 09:28:08 What Is Your Code Status? DNR [email or web address] Information not available 01/24/2025 Sex: Unknown Functional Status Question Answer Note LastModified by [facility] Details LastModified Time Do you use any [...] ICD10 Code Diagnosis IMO Codes Diagnosis Note [id number] Bettina Yan DO [place] [address] [place] [address] 01/24/2025 21:35:55 01/31/2025 08:10:01 Interstitial lung disease 432262747 J84.9 437074 see above..... 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 803590740 I25.810 99266838 currently no chest pains/p CABG and PCIcontinu e plavix, betablocke r and statin therapyout patient f/u with cardiology as scheduled Benign pro static hyperplasia 307164211 N40.0 11749824 currently no urinary symptoms - he has not been discharged on any meds related to thiswill request home medication list to confirm no usual medication smonitor clinically Hypertensi ve heart disease with congestive heart failure 1827349 I11.0 I50.32 57052430 continue diuretics, betablocke rmonitor blood pressures and adjust meds as clinically indicated Obstructiv e sleep apnea syndrome 56985904 G47.33 111178 continue nighttime cpap with O2 bleed Cobalamin deficiency 190 943170 E53.8 01388 continue replacemen t therapy Acute-on-c hronic respiratory failure 57106436 J96.21 63196610 related to ILD and CHFimprove d with IV diuretics and an increase in his supplement al O2 up to 6 liters/min [place] during his hospitaliz ation now back to usual baseline of 2 liters/min utedoes not appear he was treated with antibiotic s or steroids Hypothyroidism 29512549 E03.9 69987239 presumed stable - continue synthroidm ight consider checking thyroid studies during his stay if they were not checked during recent hospitaliz ation Impaired cognition 25674 6002 R41.89 645094 no diagnosis of dementia - head imaging c/w thismonito r for reversible causeswill have speech therapy follow while here Major depr essive disorder 881722209 F32.9 1373574200 continue sertraline Physical deconditioning 9698646703 9102 R53.81 549018 related to advanced age, recent hospitaliz ation, comorbidit iestherapi es have been initiated - he plans to return home alone upon d/c from [facility] [id number] Bettina Yan DO [facility] [address] [place] [address] 01/25/2025 11:01:02 01/31/2025 08:08:43 Isbmo-et-ddoopiy respiratory failure 26777520 J96.21 17782208 Sec to ILD and CHF. Improved with IV diuretics and an increase in his supplement al O2 up to 6 liters/min [place] during his hospitaliz ation. Now back to usual baseline of 2 liters/min [place]. Does not appear he was treated with antibiotic s or steroids.C ontinue therapies and oxygen supplement ation.RT to follow.[facility] if he follows with pulmonary as an outpatient . Interstiti al lung disease 472092911 J84.9 111375 SEE ABOVE... 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 Currently no chest pain.Jane nue Plavix, Metoprolol , and statin.F/U with cards as above. Benign pro static hyperplasia 640290495 N40.0 59317752 Currently no urinary symptoms. He was not discharged on any meds related to this.Reque sted home medication list to confirm no daily medication s.Monitor clinically . Hypertensi ve heart disease with congestive heart failure 7089945 I11.0 I50.31 02631472 Improved with diuresis.C ontinue Jardiance (new), Metoprolol , Spironolac tone, and PRN Lasix.Cont inue supplement oxygen as above.Cont inue to trend blood pressures, monitor lytes and renal function, and adjust meds as clinically indicated. F/U with cards on 02/01. Obstructiv e sleep apnea syndrome 53792928 G47.33 433481 Stable. Continue nighttime cpap with O2 bleed. Cobalamin deficiency 190 023958 E53.8 79095 Presumed stable. Continue supplement . Hypothyroidism 97758853 E03.9 08203855 Presumed stable. Continue SynthroidM ight consider checking thyroid studies during his stay if they were not checked during recent hospitaliz ation. Impaired cognition 92638 6002 R41.89 901423 No former diagnosis of dementia. Head imaging noted moderate atrophy and ischemic small vessel disease.M onitor for reversible causes.ST is following. Major depr essive disorder 163478461 F32.9 8810065339 Stable. Continue Sertraline . Monitor moods. Physical deconditioning 6128901670 9102 R53.81 853461 Related to advanced age, recent hospitaliz ation, comorbidit ies.Contin ue therapies. He plans to return home alone upon d/c from SNF. [id number] Bettina Yan, DO [facility] [address] [place] [address] 01/30/2025 09:58:45 01/31/2025 08:09:21 Qwjvr-kd-nrsvrxq respiratory failure 59035698 J96.21 96346438 Sec to ILD and CHF. Improved with IV diuretics and an increase in his supplement al O2 up to 6 liters/min [place] during his hospitaliz ation. Now back to usual baseline of 2 liters/min [place]. Does not appear he was treated with antibiotic s or steroids.C ontinue therapies and oxygen supplement ation.RT to follow.[facility] if he follows with pulmonary as an outpatient . Hypertensi ve heart disease with congestive heart failure 4272094 I11.0 I50.31 69466355 Improved with diuresis.C ontinue Jardiance (new), Metoprolol , Spironolac tone, and PRN Lasix.Cont inue supplement oxygen as above.Cont inue to trend blood pressures, monitor lytes and renal function, and adjust meds as clinically indicated. F/U with cards on 02/01. 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 Currently no chest pain.Jane nue Plavix, Metoprolol , and statin.F/U with cards as above. Interstiti al lung disease 647963318 J84.9 290305 SEE ABOVE... Benign pro static hyperplasia 132122655 N40.0 12556320 Currently no urinary symptoms. He was not discharged on any meds related to this.Reque sted home medication list to confirm no daily medication s.Monitor clinically . Hypothyroidism 06236751 E03.9 40607833 Presumed stable. Continue SynthroidC hecking thyroid panel in AM. Cobalamin deficiency 190 071034 E53.8 39612 Presumed stable. Continue supplement . Obstructiv e sleep apnea syndrome 38260782 G47.33 614227 Stable. Continue nighttime cpap with O2 bleed. Impaired cognition 24009 6002 R41.89 632877 No former diagnosis of dementia. Head imaging noted moderate atrophy and ischemic small vessel disease.M onitor for reversible causes.ST is following. Appears more confused than he has previously -- checking UA and labs in AM. Major depr essive disorder 042903472 F32.9 2120276287 Stable. Continue Sertraline . Monitor moods. Physical deconditioning 9453414125 9102 R53.81 891686 Related to advanced age, recent hospitaliz ation, comorbidit ies.Contin ue therapies. He plans to return home alone upon d/c from SNF. [id number] Bettina Yan, DO [address] [address] 02/01/2025 12:27:22 02/06/2025 10:25:29 Pgubm-jb-pzisifp respiratory failure 20463527 J96.21 20316570 Sec to ILD and CHF. Improved with IV diuretics and an increase in his supplement al O2 up to 6 liters/min [place] during his hospitaliz ation. Now back to usual baseline of 2 liters/min [place]. Does not appear he was treated with antibiotic s or steroids.C ontinue therapies and oxygen supplement ation.RT to follow.[facility] if he follows with pulmonary as an outpatient . Hypertensi ve heart disease with congestive heart failure 8231802 I11.0 I50.31 78604044 Improved with diuresis.C ontinue Jardiance (new), Metoprolol , Spironolac tone, and PRN Lasix.Cont inue supplement oxygen as above.Cont inue to trend blood pressures, monitor lytes and renal function, and adjust meds as clinically indicated. F/U with cards today (02/01). 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 Currently no chest pain.Jane nue Plavix, Metoprolol , and statin.F/U with cards as above. Interstiti al lung disease 744503104 J84.9 629453 SEE ABOVE... Benign pro static hyperplasia 768643416 N40.0 10780012 Currently no urinary symptoms. He was not discharged on any meds related to this.Reque sted home medication list to confirm no daily medication s.Monitor clinically . Hypothyroidism 11138716 E03.9 27474544 01/31/25 = TSH 1.176, Free T4 1.14Stable . Continue Synthroid. Cobalamin deficiency 190 180639 E53.8 55964 Presumed stable. Continue supplement . Obstructiv e sleep apnea syndrome 73005711 G47.33 342034 Stable. Continue nighttime cpap with O2 bleed. Impaired cognition 41213 6002 R41.89 492554 No former diagnosis of dementia. Head imaging noted moderate atrophy and ischemic small vessel disease.S T is following. Labs & UA were unremarkab le. Continue to monitor for reversible causes. Pt remains quite confused. Major depr essive disorder 322931759 F32.9 5600139744 Stable. Continue Sertraline . Monitor moods. Physical deconditioning 5903554074 9102 R53.81 485990 Related to advanced age, recent hospitaliz ation, and comorbidit ies.Contin ue therapies. He plans to return home alone upon d/c from SNF. [id number] Bettina Yan, DO [address] [address] 02/04/2025 21:09:40 02/06/2025 10:26:09 Aktsb-xh-hmbtoub respiratory failure 81130878 J96.21 64778807 Sec to ILD and CHF. Improved with IV diuretics and an increase in his supplement al O2 up to 6 liters/min [place] during his hospitaliz ation. Now back to usual baseline of 2 liters/min [place]. Does not appear he was treated with antibiotic s or steroids.W ill check CXR in light of cough, weight gain and [place] schedule lasix routinely for now and monitor clinically RT to follow.[facility] lear if he follows with pulmonary as an outpatient . 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 Currently no chest pain.Jane nue Plavix, Metoprolol , and statin.F/U with cards as above. Interstiti al lung disease 106637141 J84.9 314989 SEE ABOVE... Benign pro static hyperplasia 869502889 N40.0 02803542 Currently no urinary symptoms. He was not discharged on any meds related to this.Monit or clinically . Hypothyroidism 01814456 E03.9 42625482 01/31/25 = TSH 1.176, Free T4 1.14Stable . Continue Synthroid. Cobalamin deficiency 190 945816 E53.8 36516 Presumed stable. Continue supplement . Obstructiv e sleep apnea syndrome 56446267 G47.33 039073 Stable. Continue nighttime cpap with O2 bleed. Impaired cognition 02558 6002 R41.89 597118 No former diagnosis of dementia. Head imaging noted moderate atrophy and ischemic small vessel disease.S T is following. Labs & UA were unremarkab le. Continue to monitor for reversible causes. Pt remains quite confused. Major depr essive disorder 771085169 F32.9 8441165964 Stable. Continue Sertraline . Monitor moods. Physical deconditioning 8438810368 9102 R53.81 065931 Related to advanced age, recent hospitaliz ation, and comorbidit ies.Contin ue therapies. He plans to return home alone upon d/c from SNF - discharge is set for 02/13 [id number] Bettina Yan, [place] [address] [place] [address] 02/06/2025 10:10:23 02/08/2025 21:10:03 Sznfl-bp-lgibuzs respiratory failure 11426882 J96.21 25574057 Sec to ILD and CHF. Improved with IV diuretics and an increase in his supplement al O2 up to 6 liters/min [place] during his hospitaliz ation. Now back to usual baseline of 2 liters/min [place]. Does not appear he was treated with [...] ve heart disease with congestive heart failure 5583744 I11.0 I50.31 92739872 Improved with diuresis.C ontinue Jardiance (new), Spironolac tone, Lasix (scheduled daily), and Metoprolol (reduced due to bradycardi a).Continu e supplement oxygen as above - he remains on 2 liters/min uteContinu e to trend blood pressures, monitor lytes and renal function, and adjust meds as clinically indicated. F/U with cards last week without new orders. 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 Currently no chest pain.Jane nue Plavix, Metoprolol , and statin.F/U with cards as above. Interstiti al lung disease 499747757 J84.9 143410 SEE ABOVE... Benign pro static hyperplasia 886685317 N40.0 12268220 Currently no urinary symptoms. He was not discharged on any meds related to this.Monit or clinically . Hypothyroidism 03619035 E03.9 01572701 01/31/25 = TSH 1.176, Free T4 1.14Stable . Continue Synthroid. Cobalamin deficiency 190 357460 E53.8 12213 Presumed stable. Continue supplement . Obstructiv e sleep apnea syndrome 32099392 G47.33 322986 Stable. Continue nighttime cpap with O2 bleed. Impaired cognition 27253 6002 R41.89 469621 No former diagnosis of dementia. Head imaging noted moderate atrophy and ischemic small vessel disease.S T is following. SLUMS score on 02/01 was 6/30.Labs & UA were unremarkab le. Continue to monitor for reversible causes. Pt remains quite confused. Major depr essive disorder 513274042 F32.9 3542748868 Stable. Continue Sertraline . Monitor moods. Physical deconditioning 7967001339 9102 R53.81 855609 Related to advanced age, recent hospitaliz ation, [...] Member ID Fernandez Member ID Guarantor Name 02/06/2025 2 [place] [id number] Abbe Jimenez [id number] Abbe Jimenez 02/06/2025 1 [place] Abbe Jimenez [id number] Abbe Jimenez Notes Date Note Type Note Provider Name and Address Organization Details Recorded Time 02/06/2025 text/html F/U acute on chronic respiratory failure sec to CHF exacerbation & chronic interstitial lung disease, weakness/deconditi oning, and chronic medical conditions.---01/24Abbe is sitting up in his bedside chair this afternoon. He is a fair historian with some forgetfulness/conf usion. Respiratory status stable with supplemental O2 at 2 liters. He got some extra aldactone this am due to a nursing med error. He has not noticed a subsequent increase in urination. No new concerns / complaints.---01/25Brian is seated in his recliner in his room, doing well today, without concerns or pain to report. He is eating black licorice, has 2 large bags by his bedside, which he notes is his favorite candy. I do express to him a need to not overdue black licorice given it's known effects on cardiac function/electroly ja. He says he has never heard this [...] with pt standing on uneven surface of airex.---01/30/25 Brian is seated in his w/c in his [...] for breathing techniques. sit/stand CGA Standing balance techniques---01/20 06/13Brian is seated in his w/c in his [...] and 60s - metoprolol was held this am.---02/06/25Parobinson is doing well today, confused but without [...] ~100' CGA ccues for breathing techniques and posture. Anahi Valladares, [place] [address] [facility], [place], [address], [place] [facility] 02/06/2025 18:42:39
--- OUTSIDE RECORDS SUMMARY | 2025-02-28 19:57 | XMS_ITS | Continuity of Care Document ---
Author Organization [facility], [facility] Address [address] [place] [address] Care Team Providers Care Health Informatics Instructor Name Role Phone [facility] FAX OTHER MARTI YARBROUGH Primary Care Provider Assessment No assessment recorded. Plan of Treatment Reminders Order Date Submit [...] Modified By Organization Details Last Modified Time 02/01/2025 [id number] I spent 36 minutes providing care to the patient today. More than 50% of that time was spent in discussing the expected course of the disease, discussing prognosis, coordinating care and counseling of the patient/family. [email or web address] Not available 02/01/2025 14:31:26 Reason for Referral None Reported. Results Created Date Observation Date Name Description Value Unit Range Abnormal Flag Note LastModifiedBy Organization Detail LastModifiedTime 02/05/20 25 02/04/2025 XR, chest , 2 view No observ ation record ed. [facility] [address] [place], [place], [address], 02/06/2025 09:30:57 Result Notes None recorded. Procedures Surgical History Date Name Laterality Status Provider Name and Address Organization Details Recorded Time appendectomy completed Kenneth Juárez [facility] 01/24/2025 09:26:32 coronary artery bypass graft completed Kenneth Juárez [facility] 01/24/2025 09:26:42 Carpal Tunnel Release completed Kenneth Juárez [facility] 01/24/2025 09:27:20 elbow joint operations completed Kenneth Juárez [facility] 01/24/2025 09:27:28 Imaging Results None recorded. Procedure Notes None recorded. Medical Equipment None Reported. Allergies Allergen ID Allergen Name Allergen Category Reaction Reaction Severity Criticality Documentation Date Start Date Code Code System Note Provider Name and Address Organization Details Recorded Time 71866 codeine medicatio n Not available Not available Not available 01/24/2025 2670 [facility] 74718 Product containin g penicilli n (product) medicatio n Not available Not available Not available 01/24/2025 54973 8001 SNOMED [facility] Medications Name Sig Start Date Stop [...] rate Body temperature Respiratory rate Oxygen saturation Inhaled oxygen flow rate Body mass index (BMI) Body weight Systolic And Diastolic Provider Name and Address Organization Details Last Updated DateTime 165.1 cm 65 /min 98 [degF] 20 /min 94 % 3 L/min 28.3 kg/m2 04374.4 2 g 120/51 mm[Hg] Anahi Valladares, [employer] [address] [place], [address] , [place] - [facility] 14:17:35 Social History Question Answer Notes LastModified by Organizat ion Details LastModified Time Tobacco Smoking Status Never Smoker Kenneth Juárez [facility], [facility] 01/24/2025 09:28:08 What Is Your Code Status? DNR [email or web address] Information not available 01/24/2025 Sex: Unknown Functional Status Question Answer Note LastModified by Organizat ion Details LastModified Time Do you use any illicit or recreational drugs? No Information not available 01/24/2025 What is your level of alcohol consumption? None Information not available 01/24/2025 Mental Status None recorded. Family History Nothing Reported. Medical History Condition Response Coronary Artery Disease (CAD) Y Vitamin B12 Deficiency Y Congestive Heart Failure (CHF) Y Sleep Apnea / KATINA Y Hypertension Y Benign Prostatic Hyperplasia (BPH) Y Asthma Y Past Encounters Encounter ID Performer Location Encounter Start Date Encounter Closed Date Diagnosis/Indication Diagnosis SNOMED-CT Code Diagnosis ICD10 Code Diagnosis IMO Codes Diagnosis Note [id number] Bettina Yan DO [place] [address] [place] [address] 01/24/2025 21:35:55 01/31/2025 08:10:01 Interstitial lung disease 009080928 J84.9 115435 see above..... 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 407217995 I25.810 53478813 currently no chest pains/p CABG and PCIcontinu e plavix, betablocke r and statin therapyout patient f/u with cardiology as scheduled Benign pro static hyperplasia 298631915 N40.0 [id number] currently no urinary symptoms - he has not been discharged on any meds related to thiswill request home medication list to confirm no usual medication smonitor clinically Hypertensi ve heart disease with congestive heart failure 4990465 I11.0 I50.32 05474498 continue diuretics, betablocke rmonitor blood pressures and adjust meds as clinically indicated Obstructiv e sleep apnea syndrome 45043642 G47.33 484431 continue nighttime cpap with O2 bleed Cobalamin deficiency 190 024479 E53.8 84486 continue replacemen t therapy Acute-on-c hronic respiratory failure 79246811 J96.21 94619111 related to ILD and CHFimprove d with IV diuretics and an increase in his supplement al O2 up to 6 liters/min quileute during his hospitaliz ation now back to usual baseline of 2 liters/min utedoes not appear he was treated with antibiotic s or steroids Hypothyroidism 82760676 E03.9 81794687 presumed stable - continue synthroidm ight consider checking thyroid studies during his stay if they were not checked during recent hospitaliz ation Impaired cognition 94489 6002 R41.89 223090 no diagnosis of dementia - head imaging c/w thismonito r for reversible causeswill have speech therapy follow while here Major depr essive disorder 019454206 F32.9 8558254861 continue sertraline Physical deconditioning 3685169964 9102 R53.81 842785 related to advanced age, recent hospitaliz ation, comorbidit iestherapi es have been initiated - he plans to return home alone upon d/c from [facility] [id number] Bettina Yan DO [place] [address] [place] [address] 01/25/2025 11:01:02 01/31/2025 08:08:43 Udmxl-gf-pcrmzqq respiratory failure 79635405 J96.21 53741851 Sec to ILD and CHF. Improved with IV diuretics and an increase in his supplement al O2 up to 6 liters/min quileute during his hospitaliz ation. Now back to usual baseline of 2 liters/min quileute. Does not appear he was treated with antibiotic s or steroids.C ontinue therapies and oxygen supplement ation.RT to follow.[facility] andrea if he follows with pulmonary as an outpatient . Interstiti al lung disease 419347603 J84.9 832497 SEE ABOVE... 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 Currently no chest pain.Jane nue Plavix, Metoprolol , and statin.F/U with cards as above. Benign pro static hyperplasia 391971708 N40.0 14050709 Currently no urinary symptoms. He was not discharged on any meds related to this.Reque sted home medication list to confirm no daily medication s.Monitor clinically . Hypertensi ve heart disease with congestive heart failure 8066038 I11.0 I50.31 31496982 Improved with diuresis.C ontinue Jardiance (new), Metoprolol , Spironolac tone, and PRN Lasix.Cont inue supplement oxygen as above.Cont inue to trend blood pressures, monitor lytes and renal function, and adjust meds as clinically indicated. F/U with cards on 02/01. Obstructiv e sleep apnea syndrome 93547819 G47.33 092738 Stable. Continue nighttime cpap with O2 bleed. Cobalamin deficiency 190 144675 E53.8 04026 Presumed stable. Continue supplement . Hypothyroidism 11691027 E03.9 31342478 Presumed stable. Continue SynthroidM ight consider checking thyroid studies during his stay if they were not checked during recent hospitaliz ation. Impaired cognition 37260 6002 R41.89 516836 No former diagnosis of dementia. Head imaging noted moderate atrophy and ischemic small vessel disease.M onitor for reversible causes.ST is following. Major depr essive disorder 590033909 F32.9 6047757152 Stable. Continue Sertraline . Monitor moods. Physical deconditioning 5500584115 9102 R53.81 803360 Related to advanced age, recent hospitaliz ation, comorbidit ies.Contin ue therapies. He plans to return home alone upon d/c from SNF. [id number] Bettina Yan, DO [place] [address] [place] [address] 01/30/2025 09:58:45 01/31/2025 08:09:21 Qokxs-ch-nlbaebg respiratory failure 78439389 J96.21 01701962 Sec to ILD and CHF. Improved with IV diuretics and an increase in his supplement al O2 up to 6 liters/min quileute during his hospitaliz ation. Now back to usual baseline of 2 liters/min quileute. Does not appear he was treated with antibiotic s or steroids.C ontinue therapies and oxygen supplement ation.RT to follow.[facility] andrea if he follows with pulmonary as an outpatient . Hypertensi ve heart disease with congestive heart failure 1033688 I11.0 I50.31 70883161 Improved with diuresis.C ontinue Jardiance (new), Metoprolol , Spironolac tone, and PRN Lasix.Cont inue supplement oxygen as above.Cont inue to trend blood pressures, monitor lytes and renal function, and adjust meds as clinically indicated. F/U with cards on 02/01. 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 Currently no chest pain.Jane nue Plavix, Metoprolol , and statin.F/U with cards as above. Interstiti al lung disease 585432857 J84.9 441008 SEE ABOVE... Benign pro static hyperplasia 913081916 N40.0 42778418 Currently no urinary symptoms. He was not discharged on any meds related to this.Reque sted home medication list to confirm no daily medication s.Monitor clinically . Hypothyroidism 27863708 E03.9 75302556 Presumed stable. Continue SynthroidC hecking thyroid panel in AM. Cobalamin deficiency 190 425554 E53.8 61256 Presumed stable. Continue supplement . Obstructiv e sleep apnea syndrome 31870618 G47.33 425038 Stable. Continue nighttime cpap with O2 bleed. Impaired cognition 04161 6002 R41.89 645370 No former diagnosis of dementia. Head imaging noted moderate atrophy and ischemic small vessel disease.M onitor for reversible causes.ST is following. Appears more confused than he has previously -- checking UA and labs in AM. Major depr essive disorder 208485664 F32.9 1933119833 Stable. Continue Sertraline . Monitor moods. Physical deconditioning 4555685359 9102 R53.81 583720 Related to advanced age, recent hospitaliz ation, comorbidit ies.Contin ue therapies. He plans to return home alone upon d/c from SNF. [id number] Bettina Yan, DO [facility] [address] [place] [address] 02/01/2025 12:27:22 02/06/2025 10:25:29 Owinj-ev-egpshgl respiratory failure 85984120 J96.21 54949476 Sec to ILD and CHF. Improved with IV diuretics and an increase in his supplement al O2 up to 6 liters/min quileute during his hospitaliz ation. Now back to usual baseline of 2 liters/min quileute. Does not appear he was treated with antibiotic s or steroids.C ontinue therapies and oxygen supplement ation.RT to follow.[facility] andrea if he follows with pulmonary as an outpatient . Hypertensi ve heart disease with congestive heart failure 9277677 I11.0 I50.31 26724195 Improved with diuresis.C ontinue Jardiance (new), Metoprolol , Spironolac tone, and PRN Lasix.Cont inue supplement oxygen as above.Cont inue to trend blood pressures, monitor lytes and renal function, and adjust meds as clinically indicated. F/U with cards today (02/01). 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 Currently no chest pain.Jane nue Plavix, Metoprolol , and statin.F/U with cards as above. Interstiti al lung disease 091766815 J84.9 583411 SEE ABOVE... Benign pro static hyperplasia 239191039 N40.0 66109310 Currently no urinary symptoms. He was not discharged on any meds related to this.Reque sted home medication list to confirm no daily medication s.Monitor clinically . Hypothyroidism 93396883 E03.9 88566212 01/31/25 = TSH 1.176, Free T4 1.14Stable . Continue Synthroid. Cobalamin deficiency 190 269067 E53.8 77725 Presumed stable. Continue supplement . Obstructiv e sleep apnea syndrome 08098356 G47.33 123604 Stable. Continue nighttime cpap with O2 bleed. Impaired cognition 96062 6002 R41.89 958894 No former diagnosis of dementia. Head imaging noted moderate atrophy and ischemic small vessel disease.S T is following. Labs & UA were unremarkab le. Continue to monitor for reversible causes. Pt remains quite confused. Major depr essive disorder 331106329 F32.9 6533825981 Stable. Continue Sertraline . Monitor moods. Physical deconditioning 5336104808 9102 R53.81 759924 Related to advanced age, recent hospitaliz ation, and comorbidit ies.Contin ue therapies. He plans to return home alone upon d/c from SNF. Health Concerns Section Related Observation LastModified by Organization Detai ls LastModified Time None Recorded Concern Status LastModified by Organization Details LastModified Time None Recorded Payers Encounter Date Sequence Insurance Name Policy Number Policy Fernandez Covered Member ID Fernandez Member ID Guarantor Name 02/01/2025 2 [place] [id number] Abbe Jimenez [id number] Abbe Jimenez 02/01/2025 1 [place] Abbe Jimenez [id number] Abbe Jimenez Notes Date Note Type Note Provider Name and Address Organization Details Recorded Time 02/01/2025 text/html F/U acute on chronic respiratory failure [...] on level surfaces with a rollator, requiring SBA. Anahi Valladares, [place] [address] [facility], [place], [address], [facility] [place] [facility] 02/01/2025 14:31:50
--- OUTSIDE RECORDS SUMMARY | 2025-02-28 19:57 | XMS_ITS | Clinical Summary ---
Author Organization [facility] Address [address] [place] [address] Care Team Providers Care Manager Country Name Role Phone Unavailable Primary Care Provider Unavailabl e Encounters Date Type Department Care Team Description 02/06/2025 3:25 PM ORGANIC PREPARATION TECHNICIAN - 02/06/2025 11:59 PM ORGANIC PREPARATION TECHNICIAN Hospital Encounter [place] [address] Anahi Valladares NP Discharge Disposition: Home or Self Care (Routine Discharge) 02/06/2025 Orders [place] [address] Anahi Valladares NP 01/19/2025 Telephone [facility] [address] [address] Brian Manrique MD Information from Last 3 Months Social History Tobacco Use Types Packs/Day Years Used Date Smoking Tobacco: Never Assessed Sex and Gender Information Value Date Recorded Sex Assigned at Not on file Legal Sex Male 1:11 PM CDT Gender Identity Not on file Sexual Orientation Not on file Plan of Treatment Health Maintenance Due Date Last Done Comments DTaP, Tdap and Td Vaccines ( 1 - Tdap) 1960 Pneumococcal Vaccine: 50+ Years (1 of 1 - PCV) 1991 Zoster Vaccines (1 of 2) 1991 RSV Immunization or 60+ Years (1 - 1-dose 75+ series) 2016 PHQ-2 (Physician [place]) 03/22/2024 COVID-19 Vaccine (4 - 2024-2 6 season) 2024 03/06/2021, 05/14/2020, 04/23/2020 Influenza Adult (#1) 2024 12/28/2019, 12/22/2017, 01/14/2016 Hepatitis A Vaccines Aged Out No long er eligible based on patient's age to complete this topic Meningococcal B Vaccine Aged Out No l onger eligible based on patient's age to complete this topic Meningococcal Vaccine Aged Out No summer katey eligible based on patient's age to complete this topic RSV Immunizations Under 20 Months Aged Out No longer eligible b ased on patient's age to complete this topic Procedures Procedure Name Priority Date/Time Associated Diagnosis Comments COMPREHENSIVE METABOLIC PANEL Routine 02/06/2025 12:59 PM ORGANIC PREPARATION TECHNICIAN Anemia, unspecified Ill-defined descriptions and complications of heart disease from Last 3 Months Results * (ABNORMAL) COMPREHENSIVE METABOLIC PANEL (02/06/2025 12:59 PM ORGANIC PREPARATION TECHNICIAN) GLUCOSE 105(H) 70 - 99 MG/DL 02/06/2025 3:51 PM ORGANIC PREPARATION TECHNICIAN [facility] BUN 15 7 - 18 MG/DL 02/06/2025 3:[address] [facility] CREATININE S/P/B 1.26 0.7 - 1.3 MG/DL 02/06/2025 3:[address] [facility] SODIUM S/P/B 141 136 - 145 MMOL/L 02/06/2025 3:[address] [facility] POTASSIUM S/P/B 3.7 3.5 - 5.1 MMOL/L 02/06/2025 3:[address] [facility] CHLORIDE S/P/B 107 97 - 115 MMOL/L 02/06/2025 3:[address] [facility] CO2 32.6(H) 21 - 32 MMOL/L 02/06/2025 3:[address] [facility] CALCIUM S/P/B 8.7 8.5 - 10.1 MG/DL 02/06/2025 3:[address] [facility] BILIRUBIN TOTAL S/P/B 0.9 0.2 - 1.2 MG/DL 02/06/2025 3:[address] [facility] Comment: THIS ASSAY IS NOT RECOMMENDED FOR PATIENTS UNDERGOING TREATMENT WITH ELTROMBOPAG DUE TO THE POTENTIAL FOR FALSELY ELEVATED RESULTS. TOTAL PROTEIN S/P/B 6.2(L) 6.4 - 8.2 G/DL 02/06/2025 3:[address] [facility] ALBUMIN S/P/B 3.3(L) 3.4 - 5.0 G/DL 02/06/2025 3:[address] [facility] AST 28 15 - 37 U/L 02/06/2025 3:[address] [facility] ALT 33 16 - 60 U/L 02/06/2025 3:[address] [facility] ALKALINE PHOSPHATASE S/P/B 103 50 - 136 U/L 02/06/2025 3:[address] [facility] ANION GAP 1.4(L) 2 - 10 MMOL/L 02/06/2025 3:[address] [facility] BUN CREATININE RATIO 11.9 6 - 26 02/06/2025 3:[address] [facility] A/G RATIO 1.1 1.0 - 2.0 RATIO 02/06/2025 3:[address] [facility] GFR ESTIMATE 57(L) >90 ML/MIN/1.7 3 M2 02/06/2025 3:[address] [facility] Comment: NOTE: eGFR is not calculated for patients <18 years of age or gender unknown. This is an estimated GFR calculation using the new CKD EPI creatinine equation without race and so does not require a correction factor for race. This estimated GFR should not be used for calculating drug doses. BLOOD VENOUS BLOOD SPECIMEN / Unknown 02/06/2025 12:59 PM ORGANIC PREPARATION TECHNICIAN us Anahi Valladares [employer] Final Res ult [facility] [address] [place] [address], [place] [phone] from Last 3 Months Insurance
--- OUTSIDE RECORDS SUMMARY | 2025-02-28 19:57 | XMS_ITS | Continuity of Care Document ---
Author Organization [place] [facility] [place] Address [address] [place] [address] Care Team Providers Care Trimming Operator Name Role Phone [facility] FAX OTHER MARTI SALAZAR Primary Care Provider Assessment Encounter Date Assessment Date Assessment LastModified by Organization Details LastModified Time 01/25/2025 01/25/2025 Educated pt to avoid eating >2 oz black licorice/day and nursing to educate family likewise. Labs on 01/31. Requested home med list from Dr. Salazar. Not available 01/29/2025 09:47:40 Plan of Treatment Reminders Order Date Submit [...] Modified By Organization Details Last Modified Time 01/25/2025 [id number] I spent 38 minutes providing care to the patient today. More than 50% of that time was spent in discussing the expected course of the disease, discussing prognosis, coordinating care and counseling of the patient/family. Not available 01/29/2025 09:52:59 Reason for Referral None Reported. Results Created Date Observation Date Name Description Value Unit Range Abnormal Flag Note LastModifiedBy Organization Detail LastModifiedTime 02/05/20 25 02/04/2025 XR, chest , 2 view No observ ation record ed. [facility] [address] [place], [place], [address], 02/06/2025 09:30:57 Result Notes None recorded. Procedures Surgical History Date Name Laterality Status Provider Name and Address Organization Details Recorded Time [facility] 01/24/2025 09:26:32 [facility] 01/24/2025 09:26:42 [facility] 01/24/2025 09:27:20 elbow joint operations [facility] 01/24/2025 09:27:28 Imaging Results None recorded. Procedure Notes None recorded. Medical Equipment None Reported. Allergies Allergen ID Allergen Name Allergen Category Reaction Reaction Severity Criticality Documentation Date Start Date Code Code System Note Provider Name and Address Organization Details Recorded Time 86245 codeine medicatio n Not available Not available Not available 01/24/2025 2670 [facility] 64235 Product containin g penicilli n (product) medicatio n Not available Not available Not available 01/24/2025 64100 8001 SNOMED [facility] Medications Name Sig Start [...] Not Available Not Available Vitals Date Recorded Heart rate Body temperature Respiratory rate Oxygen saturation Inhaled oxygen flow rate Body weight Body mass index (BMI) Body height Systolic And Diastolic Provider Name and Address Organization Details Last Updated DateTime 95 /min 97.8 [degF] 20 /min 98 % 3 L/min 96387.8 7 g 27.3 kg/m2 165.1 cm 104/49 mm[Hg] Anahi Valladares, BRYNN [address] [place], [address] , [facility] [place] [facility] 17:12:47 Social History Question Answer Notes LastModified by [employer] Details LastModified Time Tobacco Smoking Status Never Smoker Kenneth Juárez [facility] 01/24/2025 09:28:08 What Is Your Code Status? DNR [email or web address] Information not available 01/24/2025 Sex: Unknown Functional Status Question Answer Note LastModified by [employer] Details LastModified Time Do you use any [...] ICD10 Code Diagnosis IMO Codes Diagnosis Note 143115 Bettina Yan DO [place] [address] [place] [address] 01/24/2025 21:35:55 01/31/2025 08:10:01 Interstitial lung disease 072307131 J84.9 216728 see above..... 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 012659263 I25.810 11104665 currently no chest pains/p CABG and PCIcontinu e plavix, betablocke r and statin therapyout patient f/u with cardiology as scheduled Benign pro static hyperplasia 075213682 N40.0 11374303 currently no urinary symptoms - he has not been discharged on any meds related to thiswill request home medication list to confirm no usual medication smonitor clinically Hypertensi ve heart disease with congestive heart failure 2824331 I11.0 I50.32 68530168 continue diuretics, betablocke rmonitor blood pressures and adjust meds as clinically indicated Obstructiv e sleep apnea syndrome 70436591 G47.33 462319 continue nighttime cpap with O2 bleed Cobalamin deficiency 190 684873 E53.8 18423 continue replacemen t therapy Acute-on-c hronic respiratory failure 23293673 J96.21 58386650 related to ILD and CHFimprove d with IV diuretics and an increase in his supplement al O2 up to 6 liters/min [place] during his hospitaliz ation now back to usual baseline of 2 liters/min [place] not appear he was treated with antibiotic s or steroids Hypothyroidism 89688758 E03.9 97838016 presumed stable - continue synthroidm ight consider checking thyroid studies during his stay if they were not checked during recent hospitaliz ation Impaired cognition 86432 6002 R41.89 862425 no diagnosis of dementia - head imaging c/w thismonito r for reversible causeswill have speech therapy follow while here Major depr essive disorder 887795043 F32.9 9338908950 continue sertraline Physical deconditioning 3787761427 9102 R53.81 442313 related to advanced age, recent hospitaliz ation, comorbidit iestherapi es have been initiated - he plans to return home alone upon d/c from [facility] 875656 Bettina Farrah, [place] [address] [place] [address] 01/25/2025 11:01:02 01/31/2025 08:08:43 Diikv-iq-pyyukpw respiratory failure 32033243 J96.21 72166940 Sec to ILD and CHF. Improved with IV diuretics and an increase in his supplement al O2 up to 6 liters/min [place] during his hospitaliz ation. Now back to usual baseline of 2 liters/min [place]. Does not appear he was treated with antibiotic s or steroids.C ontinue therapies and oxygen supplement ation.[facility] if he follows with pulmonary as an outpatient . Interstiti al lung disease 027507811 J84.9 581130 SEE ABOVE... 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 Currently no chest pain.Jane nue Plavix, Metoprolol , and statin.F/U with cards as above. Benign pro static hyperplasia 653155230 N40.0 56844384 Currently no urinary symptoms. He was not discharged on any meds related to this.Reque sted home medication list to confirm no daily medication s.Monitor clinically . Hypertensi ve heart disease with congestive heart failure 7672546 I11.0 I50.31 89568389 Improved with diuresis.C ontinue Jardiance (new), Metoprolol , Spironolac tone, and PRN Lasix.Cont inue supplement oxygen as above.Cont inue to trend blood pressures, monitor lytes and renal function, and adjust meds as clinically indicated. F/U with cards on 02/01. Obstructiv e sleep apnea syndrome 66785151 G47.33 297556 Stable. Continue nighttime cpap with O2 bleed. Cobalamin deficiency 190 264091 E53.8 37193 Presumed stable. Continue supplement . Hypothyroidism 42117737 E03.9 07065453 Presumed stable. Continue SynthroidM ight consider checking thyroid studies during his stay if they were not checked during recent hospitaliz ation. Impaired cognition 35216 6002 R41.89 754238 No former diagnosis of dementia. Head imaging noted moderate atrophy and ischemic small vessel disease.M onitor for reversible causes.ST is following. Major depr essive disorder 276771908 F32.9 6752602182 Stable. Continue Sertraline . Monitor moods. Physical deconditioning 5779218516 9102 R53.81 292509 Related to advanced age, recent hospitaliz ation, comorbidit ies.Contin ue therapies. He plans to return home alone upon d/c from [facility]. Health Concerns Section Related Observation LastModified by Organization Detai ls LastModified Time None Recorded Concern Status LastModified by Organization Details LastModified Time None Recorded Payers Encounter Date Sequence Insurance Name Policy Number Policy Fernandez Covered Member ID Fernandez Member ID Guarantor Name 01/25/2025 2 [place] [id number] Abbe Jimenez [id number] Abbe Jimenez 01/25/2025 1 [place] Abbe Jimenez [id number] Abbe Jimenez Notes Date Note Type Note Provider Name and Address Organization Details Recorded Time 01/25/2025 text/html F/U acute on chronic respiratory failure [...] increase in urination. No new concerns / complaints.---01/25Abbe is seated in his recliner in his [...] with pt standing on uneven surface of airex. Anahi Valladares, [place] [address] [place], [address], [place] [facility] 01/29/2025 09:53:12
--- OUTSIDE RECORDS SUMMARY | 2025-02-28 19:57 | XMS_ITS | Continuity of Care Document ---
Author Organization [place] - [facility], [facility] [place] Address [address] [place] [address] Care Team Providers Care Photo Lab Technician Name Role Phone [facility] FAX OTHER MARTI YARBROUGH Primary Care Provider Assessment Encounter Date Assessment Date Assessment LastModified by Organization Details LastModified Time 02/14/2025 02/14/2025 Pt will d/c home on 02/16 with [facility], private duty nursing, and family oversight. Not available 02/14/2025 16:53:45 Plan of Treatment Reminders Order Date Submit Date Provider Last Modified By Organization Details Last Modified Time Details Appointments None recorded. Lab None recorded. Referral None recorded. Procedures None recorded. Surgeries None recorded. Imaging None recorded. Medication Orders empaglifloz in 10 mg tablet 2024 [facility] [address], [address], 16:55:12 Lasix 40 mg tablet 2024 [facility] [address], [address], 16:55:14 metoprolol succinate ER 25 mg tablet,exte nded release 24 hr 2024 [facility] [address], [address], 16:55:13 spironolact one 25 mg tablet 2024 [address] [facility] [address], [address], 16:55:14 Patient TargetsNo targets recorded. Patient Instructions Encounter Date Encounter Id Patient Instructions Last Modified By Organization Details Last Modified Time 02/14/2025 [id number] I spent 45 minutes providing care to the patient today. More than 50% of that time was spent in discussing the expected course of the disease, discussing prognosis, coordinating care and counseling of the patient/family. The patient will be discharged home with home health orders of home health RN / PT / OT to evaluate and treat. The patient is homebound because of fall risk and is unable to leave home safely because requires considerable and taxing effort to leave home. The patient requires home health nursing for instruction, observation and assessment; PT for training to restore safe independent functional ambulation in community; and OT for training to improve ability to fulfill ADLs. Please follow-up with your primary care provider within 1 week. Call your primary care provider for instructions or go to the emergency room for new or worsening symptoms. Not available 02/14/2025 16:54:46 Reason for Referral None Reported. Results Created Date Observation Date Name Description Value Unit Range Abnormal Flag Note LastModifiedBy Organization Detail LastModifiedTime 02/05/20 25 02/04/2025 XR, chest , 2 view No observ ation record ed. [facility] [address] [place], [place], [address], 02/06/2025 09:30:57 Result Notes None recorded. Procedures Surgical History Date Name Laterality Status Provider Name and Address Organization Details Recorded Time appendectomy completed Kenneth Juárez [place] - [facility] 01/24/2025 09:26:32 coronary artery bypass graft completed Marderricke Franck [place] - [facility] 01/24/2025 09:26:42 Carpal Tunnel Release completed Marderricke Franck [place] [facility] 01/24/2025 09:27:20 elbow joint operations completed Marjuan manuel Juárez [place] - [facility] 01/24/2025 09:27:28 Imaging Results None recorded. Procedure Notes None recorded. Medical Equipment None Reported. Allergies Allergen ID Allergen Name Allergen Category Reaction Reaction Severity Criticality Documentation Date Start Date Code Code System Note Provider Name and Address Organization Details Recorded Time 75233 codeine medicatio n Not available Not available Not available 01/24/2025 2670 [facility] 67105 Product containin g penicilli n (product) medicatio n Not available Not available Not available 01/24/2025 97545 8001 [facility]ED [facility] Medications Name Sig Start Date [...] Organization Details Last Updated DateTime 165.1 cm 73 /min 98.6 [degF] 17 /min 93 % 3 L/min 26.9 kg/m2 27717.2 5 g 107/78 mm[Hg] Anahi Valladares, [employer] [address] [place], [address], [place] [facility] 16:38:38 Social History Question Answer Notes LastModified by Organizat ion Details LastModified Time Tobacco Smoking Status Never Smoker Kenneth Juárez [facility], [place] - [facility] 01/24/2025 09:28:08 What [...] ICD10 Code Diagnosis IMO Codes Diagnosis Note [id number] Bettina Yan DO [address] [address] 01/24/2025 21:35:55 01/31/2025 08:10:01 Interstitial lung disease 607090695 J84.9 490360 see above..... 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 056331668 I25.810 92641233 currently no chest pains/p CABG and PCIcontinu e plavix, betablocke r and statin therapyout patient f/u with cardiology as scheduled Benign pro static hyperplasia 167219122 N40.0 19411506 currently no urinary symptoms - he has not been discharged on any meds related to thiswill request home medication list to confirm no usual medication smonitor clinically Hypertensi ve heart disease with congestive heart failure 8738705 I11.0 I50.32 98604839 continue diuretics, betablocke rmonitor blood pressures and adjust meds as clinically indicated Obstructiv e sleep apnea syndrome 85323920 G47.33 269722 continue nighttime cpap with O2 bleed Cobalamin deficiency 190 689314 E53.8 60800 continue replacemen t therapy Acute-on-c hronic respiratory failure 03307888 J96.21 40310134 related to ILD and CHFimprove d with IV diuretics and an increase in his supplement al O2 up to 6 liters/min cahto during his hospitaliz ation now back to usual baseline of 2 liters/min utedoes not appear he was treated with antibiotic s or steroids Hypothyroidism 03448410 E03.9 90067639 presumed stable - continue synthroidm ight consider checking thyroid studies during his stay if they were not checked during recent hospitaliz ation Impaired cognition 36739 6002 R41.89 864754 no diagnosis of dementia - head imaging c/w thismonito r for reversible causeswill have speech therapy follow while here Major depr essive disorder 655515884 F32.9 5774291709 continue sertraline Physical deconditioning 0996603974 9102 R53.81 989208 related to advanced age, recent hospitaliz ation, comorbidit iestherapi es have been initiated - he plans to return home alone upon d/c from [facility] [id number] Bettina Yan DO [place] [address] [place] [address] 01/25/2025 11:01:02 01/31/2025 08:08:43 Zrjrp-mh-yuwsynr respiratory failure 10287203 J96.21 15083836 Sec to ILD and CHF. Improved with IV diuretics and an increase in his supplement al O2 up to 6 liters/min cahto during his hospitaliz ation. Now back to usual baseline of 2 liters/min cahto. Does not appear he was treated with antibiotic s or steroids.C ontinue therapies and oxygen supplement ation.RT to follow.Counts Include [address] [facility] andrea if he follows with pulmonary as an outpatient . Interstiti al lung disease 559155701 J84.9 720560 SEE ABOVE... 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 Currently no chest pain.Jane nue Plavix, Metoprolol , and statin.F/U with cards as above. Benign pro static hyperplasia 772128952 N40.0 02697789 Currently no urinary symptoms. He was not discharged on any meds related to this.Reque sted home medication list to confirm no daily medication s.Monitor clinically . Hypertensi ve heart disease with congestive heart failure 0120344 I11.0 I50.31 35305090 Improved with diuresis.C ontinue Jardiance (new), Metoprolol , Spironolac tone, and PRN Lasix.Cont inue supplement oxygen as above.Cont inue to trend blood pressures, monitor lytes and renal function, and adjust meds as clinically indicated. F/U with cards on 02/01. Obstructiv e sleep apnea syndrome 38927304 G47.33 794997 Stable. Continue nighttime cpap with O2 bleed. Cobalamin deficiency 190 853964 E53.8 70398 Presumed stable. Continue supplement . Hypothyroidism 07500083 E03.9 36493866 Presumed stable. Continue SynthroidM ight consider checking thyroid studies during his stay if they were not checked during recent hospitaliz ation. Impaired cognition 95590 6002 R41.89 395006 No former diagnosis of dementia. Head imaging noted moderate atrophy and ischemic small vessel disease.M onitor for reversible causes.ST is following. Major depr essive disorder 461528291 F32.9 7700577569 Stable. Continue Sertraline . Monitor moods. Physical deconditioning 9385505296 9102 R53.81 798437 Related to advanced age, recent hospitaliz ation, comorbidit ies.Contin ue therapies. He plans to return home alone upon d/c from SNF. [id number] Bettina Yan DO [facility] [address] [place] [address] 01/30/2025 09:58:45 01/31/2025 08:09:21 Udmcu-qo-paeqhtk respiratory failure 81591541 J96.21 63570032 Sec to ILD and CHF. Improved with IV diuretics and an increase in his supplement al O2 up to 6 liters/min cahto during his hospitaliz ation. Now back to usual baseline of 2 liters/min cahto. Does not appear he was treated with antibiotic s or steroids.C ontinue therapies and oxygen supplement ation.RT to follow.Counts Include [facility] lear if he follows with pulmonary as an outpatient . Hypertensi ve heart disease with congestive heart failure 5696071 I11.0 I50.31 81138358 Improved with diuresis.C ontinue Jardiance (new), Metoprolol , Spironolac tone, and PRN Lasix.Cont inue supplement oxygen as above.Cont inue to trend blood pressures, monitor lytes and renal function, and adjust meds as clinically indicated. F/U with cards on 02/01. 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 Currently no chest pain.Jane nue Plavix, Metoprolol , and statin.F/U with cards as above. Interstiti al lung disease 989508837 J84.9 474650 SEE ABOVE... Benign pro static hyperplasia 630973101 N40.0 63854177 Currently no urinary symptoms. He was not discharged on any meds related to this.Reque sted home medication list to confirm no daily medication s.Monitor clinically . Hypothyroidism 41849254 E03.9 69407467 Presumed stable. Continue SynthroidC hecking thyroid panel in AM. Cobalamin deficiency 190 235452 E53.8 86156 Presumed stable. Continue supplement . Obstructiv e sleep apnea syndrome 75652314 G47.33 758814 Stable. Continue nighttime cpap with O2 bleed. Impaired cognition 85385 6002 R41.89 491579 No former diagnosis of dementia. Head imaging noted moderate atrophy and ischemic small vessel disease.M onitor for reversible causes.ST is following. Appears more confused than he has previously -- checking UA and labs in AM. Major depr essive disorder 555875371 F32.9 5233480059 Stable. Continue Sertraline . Monitor moods. Physical deconditioning 5968390985 9102 R53.81 641243 Related to advanced age, recent hospitaliz ation, comorbidit ies.Contin ue therapies. He plans to return home alone upon d/c from [facility]. [id number] Bettina Farrah, DO [facility] [address] [place] [address] 02/01/2025 12:27:22 02/06/2025 10:25:29 Unsux-ih-mhfasrx respiratory failure 90595119 J96.21 07606053 Sec to ILD and CHF. Improved with IV diuretics and an increase in his supplement al O2 up to 6 liters/min cahto during his hospitaliz ation. Now back to usual baseline of 2 liters/min cahto. Does not appear he was treated with antibiotic s or steroids.C ontinue therapies and oxygen supplement ation.RT to follow.Counts Include [facility] andrea if he follows with pulmonary as an outpatient . Hypertensi ve heart disease with congestive heart failure 2740698 I11.0 I50.31 57123130 Improved with diuresis.C ontinue Jardiance (new), Metoprolol , Spironolac tone, and PRN Lasix.Cont inue supplement oxygen as above.Cont inue to trend blood pressures, monitor lytes and renal function, and adjust meds as clinically indicated. F/U with cards today (02/01). 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 Currently no chest pain.Jane nue Plavix, Metoprolol , and statin.F/U with cards as above. Interstiti al lung disease 050119624 J84.9 937232 SEE ABOVE... Benign pro static hyperplasia 206368153 N40.0 69415508 Currently no urinary symptoms. He was not discharged on any meds related to this.Reque sted home medication list to confirm no daily medication s.Monitor clinically . Hypothyroidism 99068289 E03.9 81214271 01/31/25 = TSH 1.176, Free T4 1.14Stable . Continue Synthroid. Cobalamin deficiency 190 832397 E53.8 06004 Presumed stable. Continue supplement . Obstructiv e sleep apnea syndrome 14327775 G47.33 380331 Stable. Continue nighttime cpap with O2 bleed. Impaired cognition 23888 6002 R41.89 661683 No former diagnosis of dementia. Head imaging noted moderate atrophy and ischemic small vessel disease.S T is following. Labs & UA were unremarkab le. Continue to monitor for reversible causes. Pt remains quite confused. Major depr essive disorder 474248427 F32.9 9176299441 Stable. Continue Sertraline . Monitor moods. Physical deconditioning 8332754225 9102 R53.81 883885 Related to advanced age, recent hospitaliz ation, and comorbidit ies.Contin ue therapies. He plans to return home alone upon d/c from SNF. [id number] Bettina Yan DO [address] [address] 02/04/2025 21:09:40 02/06/2025 10:26:09 Xvxwx-rl-tapdnnn respiratory failure 87630646 J96.21 16419293 Sec to ILD and CHF. Improved with IV diuretics and an increase in his supplement al O2 up to 6 liters/min cahto during his hospitaliz ation. Now back to usual baseline of 2 liters/min cahto. Does not appear he was treated with antibiotic s or steroids.W ill check CXR in light of cough, weight gain and edemawill schedule lasix routinely for now and monitor clinically RT to follow.Counts Include [facility] lear if he follows with pulmonary as an outpatient . 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 Currently no chest pain.Jane nue Plavix, Metoprolol , and statin.F/U with cards as above. Interstiti al lung disease 994939163 J84.9 506941 SEE ABOVE... Benign pro static hyperplasia 054753345 N40.0 27985362 Currently no urinary symptoms. He was not discharged on any meds related to this.Monit or clinically . Hypothyroidism 96313456 E03.9 56891920 01/31/25 = TSH 1.176, Free T4 1.14Stable . Continue Synthroid. Cobalamin deficiency 190 053730 E53.8 66115 Presumed stable. Continue supplement . Obstructiv e sleep apnea syndrome 98969653 G47.33 255122 Stable. Continue nighttime cpap with O2 bleed. Impaired cognition 08487 6002 R41.89 763416 No former diagnosis of dementia. Head imaging noted moderate atrophy and ischemic small vessel disease.S T is following. Labs & UA were unremarkab le. Continue to monitor for reversible causes. Pt remains quite confused. Major depr essive disorder 958077234 F32.9 2658764262 Stable. Continue Sertraline . Monitor moods. Physical deconditioning 7123544296 9102 R53.81 901147 Related to advanced age, recent hospitaliz ation, and comorbidit ies.Contin ue therapies. He plans to return home alone upon d/c from SNF - discharge is set for 02/13 [id number] Bettina Yan, DO [address] [address] 02/06/2025 10:10:23 02/08/2025 21:10:03 Hbvex-ts-vfywmde respiratory failure 51575766 J96.21 62176675 Sec to ILD and CHF. Improved with IV diuretics and an increase in his supplement al O2 up to 6 liters/min cahto during his hospitaliz ation. Now back to usual baseline of 2 liters/min cahto. Does not appear he was treated with [...] ve heart disease with congestive heart failure 2017050 I11.0 I50.31 05250950 Improved with diuresis.C ontinue Jardiance (new), Spironolac tone, Lasix (scheduled daily), and Metoprolol (reduced due to bradycardi a).Continu e supplement oxygen as above - he remains on 2 liters/min uteContinu e to trend blood pressures, monitor lytes and renal function, and adjust meds as clinically indicated. F/U with cards last week without new orders. 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 Currently no chest pain.Jane nue Plavix, Metoprolol , and statin.F/U with cards as above. Interstiti al lung disease 198887883 J84.9 339687 SEE ABOVE... Benign pro static hyperplasia 839774077 N40.0 53831265 Currently no urinary symptoms. He was not discharged on any meds related to this.Monit or clinically . Hypothyroidism 67633618 E03.9 56554072 01/31/25 = TSH 1.176, Free T4 1.14Stable . Continue Synthroid. Cobalamin deficiency 190 184056 E53.8 88022 Presumed stable. Continue supplement . Obstructiv e sleep apnea syndrome 56654771 G47.33 345096 Stable. Continue nighttime cpap with O2 bleed. Impaired cognition 29215 6002 R41.89 491863 No former diagnosis of dementia. Head imaging noted moderate atrophy and ischemic small vessel disease.S T is following. SLUMS score on 02/01 was 6/30.Labs & UA were unremarkab le. Continue to monitor for reversible causes. Pt remains quite confused. Major depr essive disorder 351528199 F32.9 4901367545 Stable. Continue Sertraline . Monitor moods. Physical deconditioning 6352419843 9102 R53.81 481846 Related to advanced age, recent hospitaliz ation, and comorbidit ies.Contin ue therapies. Goal is to return home alone upon d/c from SNF -- unclear if this continues to be a safe option due to pt's confusion. [id number] Bettina Yan, [place] [address] [place] [address] 02/08/2025 13:19:52 02/08/2025 21:10:55 Lgeba-cz-pfukcsl respiratory failure 11708304 J96.21 98591756 Sec to ILD and CHF. Improved with IV diuretics and an increase in his supplement al O2 up to 6 liters/min cahto during his hospitaliz ation. Now back to usual baseline of 2 liters/min cahto. Does not appear he was treated with [...] ve heart disease with congestive heart failure 4583742 I11.0 I50.31 31957065 Improved with diuresis. 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 Currently no chest pain.Jane nue Plavix, Metoprolol (reduced), and statin.F/U with cards as above. Interstiti al lung disease 212187285 J84.9 083574 SEE ABOVE... Benign pro static hyperplasia 384529581 N40.0 67762953 Currently no urinary symptoms. He was not discharged on any meds related to this.Monit or clinically . Hypothyroidism 11804066 E03.9 16485504 01/31/25 = TSH 1.176, Free T4 1.14Stable . Continue Synthroid. Cobalamin deficiency 190 081203 E53.8 88753 Presumed stable. Continue supplement . Obstructiv e sleep apnea syndrome 67138080 G47.33 713890 Stable. Continue nighttime cpap with O2 bleed. Impaired cognition 86343 6002 R41.89 518605 No former diagnosis of dementia. Head imaging noted moderate atrophy and ischemic small vessel disease.S T is following. SLUMS score on 02/01 was 6/30.Labs & UA were unremarkab le. Continue to monitor for reversible causes. Pt remains quite confused. Major depr essive disorder 925255203 F32.9 6889755259 Stable. Continue Sertraline . Monitor moods. Physical deconditioning 5432004471 9102 R53.81 475990 Related to advanced age, recent hospitaliz ation, and comorbidit ies.Contin ue therapies. Goal is to return home alone upon d/c from SNF -- unclear if this continues to be a safe option due to pt's confusion. [id number] Bettina Yan, DO [address] [address] 02/12/2025 10:13:23 02/15/2025 20:41:54 Tyaie-ds-gdftzsb respiratory failure 42221945 J96.21 85622388 Sec to ILD and CHF. Improved with IV diuretics and an increase in his supplement al O2 up to 6 liters/min cahto during his hospitaliz ation. Now back to usual baseline of 2 liters/min cahto. Does not appear he was treated with antibiotic s or steroids.P t developed worsening of cough on 02/04. Flu & Covid swabs negative.C XR was indetermin ate, noting pneumonia vs. ILD, which is what CT showed back on 01/19.Labs drawn, Procalcito sid <0.1, low suspicion for pneumonia at this point.Ragini Valdez routinely starting 02/05 and monitoring clinically RT following. Unclear if he follows with pulmonary as an outpatient . Will need to establish upon d/c. Hypertensi ve heart disease with congestive heart failure 7964161 I11.0 I50.31 31009220 Improved with diuresis. BPs were low along with bradycardi a. Reduced Metoprolol twice with amaurimen t.Continue Jardiance (new), Spironolac tone, Lasix (scheduled daily), and Metoprolol (reduced). Continue supplement oxygen as above - he remains on 2 liters/min uteContinu e to trend blood pressures, monitor lytes and renal function, and adjust meds as clinically indicated. F/U with cards last week without new orders. 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 Currently no chest pain.Jane nue Plavix, Metoprolol (reduced), and statin.F/U with cards as above. Interstiti al lung disease 058912567 J84.9 351639 SEE ABOVE... Benign pro static hyperplasia 901167528 N40.0 01812805 Currently no urinary symptoms. He was not discharged on any meds related to this.Monit or clinically . Hypothyroidism 88898020 E03.9 00976085 01/31/25 = TSH 1.176, Free T4 1.14Stable . Continue Synthroid. Cobalamin deficiency 190 580436 E53.8 05955 Presumed stable. Continue supplement . Obstructiv e sleep apnea syndrome 45965068 G47.33 093568 Stable. Continue nighttime cpap with O2 bleed. Impaired cognition 81609 6002 R41.89 611560 No former diagnosis of dementia. Head imaging noted moderate atrophy and ischemic small vessel disease.S T is following. SLUMS score on 02/01 was 6/30.Labs & UA were unremarkab le. Continue to monitor for reversible causes. Pt remains quite confused. Major depr essive disorder 291445134 F32.9 3357635455 Stable. Continue Sertraline . Monitor moods. Physical deconditioning 3769989891 9102 R53.81 108761 Related to advanced age, recent hospitaliz ation, and comorbidit ies.Contin ue therapies. Goal is to return home alone upon d/c from SNF -- unclear if this continues to be a safe option due to pt's confusion. [id number] Bettina Yan, [place] [address] [place] [address] 02/14/2025 14:33:10 02/15/2025 20:42:43 Mfqjb-ay-tspxswm respiratory failure 67534198 J96.21 24926025 Sec to ILD and CHF. Improved with IV diuretics and an increase in his supplement al O2 up to 6 liters/min cahto during his hospitaliz ation. Now back to usual baseline of 2 liters/min cahto. Does not appear he was treated with [...] ve heart disease with congestive heart failure 4928013 I11.0 I50.31 15830864 Improved with diuresis. BPs were low along with bradycardi a. Reduced Metoprolol twice with amaurimen t.Continue Jardiance (new), Spironolac tone, Lasix (scheduled daily), and Metoprolol (reduced). Continue supplement oxygen as above - he remains on 2 liters/min uteContinu e to trend blood pressures, monitor lytes and renal function, and adjust meds as clinically indicated. F/U with cards last week without new orders. 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 Currently no chest pain.Jane nue Plavix, Metoprolol (reduced), and statin.F/U with cards as above. Interstiti al lung disease 513685976 J84.9 365169 SEE ABOVE... Benign pro static hyperplasia 366755592 N40.0 00532912 Currently no urinary symptoms. He was not discharged on any meds related to this.Monit or clinically . Hypothyroidism 70170075 E03.9 42904613 01/31/25 = TSH 1.176, Free T4 1.14Stable . Continue Synthroid. Cobalamin deficiency 190 414487 E53.8 75076 Presumed stable. Continue supplement . Obstructiv e sleep apnea syndrome [id number] G47.33 [id number] Stable. Continue nighttime cpap with O2 bleed. Impaired cognition [id number] R41.89 [id number] No former diagnosis of dementia. Head imaging noted moderate atrophy and ischemic small vessel disease.S T is following. SLUMS score on 02/01 was 6/30.Labs & UA were unremarkab le. Continue to monitor for reversible causes. Pt remains quite confused. Recommend neuropsych iatric evaluation as OP for formal diagnosis. Major depr essive disorder [id number] F32.9 [id number] Stable. Continue Sertraline . Monitor moods. Health Concerns Section Related Observation LastModified by Organization Detai ls LastModified Time None Recorded Concern Status LastModified by Organization Details LastModified Time None Recorded Payers Encounter Date Sequence Insurance Name Policy Number Policy Fernandez Covered Member ID Fernandez Member ID Guarantor Name 02/14/2025 2 [place] [id number] Abbe Jimenez [id number] Abbe Jimenez 02/14/2025 1 [place] Abbe Jimenez [id number] Abbe Jimenez Notes Date Note Type Note Provider Name and Address Organization Details Recorded Time 02/14/2025 text/html 84 Y/O male admitted to [place] for post acute rehab subsequent to an inpatient stay at [facility] 01/19-01/23/25 related to acute on chronic respiratory failure/CHF. Per hospital d/c summary:HOSPITAL COURSE: Abbe Jimenez is an 84-year-old male with a history of interstitial lung disease, chronic diastolic heart failure, coronary artery disease (status post CABG x4 and PCI), BPH, B12 deficiency, hypertension, asthma, and KATINA on CPAP, who was admitted for acute on chronic respiratory failure with hypoxia and lower extremity swelling.The following medical issues were addressed during this admission:1. Acute on Chronic Respiratory Failure with HypoxiaHe presented with progressive shortness of breath and confusion, found hypoxic at home (SpO2 73% on 2L O2), requiring escalation to 5-6L O2 on admission. He was managed with supplemental oxygen and diuresis. His oxygen requirement improved during hospitalization, and he was stable on his baseline 2L O2 via nasal cannula at discharge. No evidence of active infection was found; viral workup was negative. Respiratory therapy assessments indicated persistent chronic impairment but no acute progression during admission. The etiology appears to be acute on chronic diastolic heart failure.2. Chronic Diastolic (Congestive) Heart FailureHe had an exacerbation of heart failure, evidenced by elevated BNP (3800), 4+ bilateral lower extremity edema, and imaging suggestive of fluid overload (bilateral airspace opacities on CXR, groundglass and interstitial opacities on CT chest). He was treated with IV Lasix, with good diuresis and resolution of edema by hospital day 2. Cardiology recommended continuation of diuresis and addition of Jardiance and spironolactone. Echocardiogram was ordered for further assessment.3. Interstitial Lung DiseaseHis underlying interstitial lung disease contributed to his chronic respiratory failure and hypoxia. Imaging showed diffuse bronchiectasis, groundglass opacities, interstitial thickening, and scarring. He remained on home oxygen at 2L and received scheduled and PRN nebulizer treatments.4. Coronary Artery DiseaseHistory of CAD with prior CABG x4 and PCI. No chest pain or acute coronary syndrome during admission. Cardiology recommended continuation of antiplatelet and statin therapy.5. HypertensionBlood pressures were soft during admission, and antihypertensives were held as needed. Parameters were set to guide diuretic administration based on MAP.6. Obstructive Sleep Apnea (KATINA) on CPAPHe uses CPAP nightly at home, and this was continued during hospitalization.7. BPH (Benign Prostatic Hyperplasia)History of BPH, with no acute urinary issues during admission.Home medications were resumed after reconciliation. Other Considerations He demonstrated mild memory impairment, possibly related to chronic small vessel ischemic disease and atrophy seen on CT head. He remained alert and oriented, with intact judgment and memory throughout admission. He was independent with ADLs and IADLs prior to admission New medications: jardiance, lasix, aldactoneNO dose adjusted or discontinued meds Code status is DNRPOA, son, BandarLilian Marti Martin---01/24/25Geor joseluis is sitting up in his bedside chair this afternoon. He is a fair historian with some forgetfulness/confusio n. Respiratory status stable with supplemental O2 at 2 liters. He got some extra aldactone this am due to a nursing med error. He has not noticed a subsequent increase in urination. No new concerns / complaints.---01/25/25P mc is seated in his recliner in his room, doing well today, without concerns or pain to report. He is eating black licorice, has 2 large bags by his bedside, which he notes is his favorite candy. I do express to him a need to not overdue black licorice given it's known effects on cardiac function/electrolytes. He says he has never heard this [...] with pt standing on uneven surface of airex.---01/30/25Brian is seated in his w/c in his [...] for breathing techniques. sit/stand CGA Standing balance techniques---02/01/25 Brian is seated in his w/c in [...] ~100' CGA ccues for breathing techniques and posture.---02/08/25Pa robinson is doing well today, seated in his [...] sit to stand and pivot transfers requiring CGA-SBA.---02/12/25Pa robinson is fairing well today, confused but pleasant, without pain or concerns to report today. 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 We discuss his fall, which he [...] and independence with transfer to toilet and EOB.---02/14/25Brian is doing fairly well today, seated in his w/c near the nurse's station, tells me that his sons are coming to get him today but he isn't certain when they will arrive and is worried. He is redirectable, reassured by nursing that his sons will come up to visit with him later today. However, about ten minutes later, he attempts to stand up and walk the 15 feet to the nurse's station but is stopped by his oxygen tubing pulling taut. Nursing and I assist him back into sitting in his w/c and he requests to call his son. Nursing assists with this. He remains quite confused but also at the level that he has been throughout his stay here. VSS. Staff is without concerns otherwise. Brian will be discharging home on 02/16 with , private-duty nursing, and [facility]. Per therapy notes = Conducted gait training with rollator 150' x 2 SBA cues for breathing techniques and standing rest breaks. Anahi Valladares, BRYNN [id number] [facility], [place], [address], [place] [facility] 02/14/2025 16:55:12
--- OUTSIDE RECORDS SUMMARY | 2025-02-28 19:57 | XMS_ITS | Continuity of Care Document ---
Author Organization [place] - [facility], [facility] [place] Address [address] [place] [address] Care Team Providers Care Grades 1 6 Tutor Name Role Phone [facility] FAX OTHER MARTI YARBROUGH Primary Care Provider [phone] Assessment Encounter Date Assessment Date Assessment LastModified by Organization Details LastModified Time 02/08/2025 02/08/2025 Reduce Metoprolol to 12.5 mg every evening, hold parameters in place. armand Not available 02/08/2025 15:11:28 Plan of Treatment Reminders Order Date Submit [...] Modified By Organization Details Last Modified Time 02/08/2025 [id number] I spent 37 minutes providing care to the patient today. More than 50% of that time was spent in discussing the expected course of the disease, discussing prognosis, coordinating care and counseling of the patient/family. armand Not available 02/08/2025 15:12:02 Reason for Referral None Reported. Results Created Date Observation Date Name Description Value Unit Range Abnormal Flag Note LastModifiedBy Organization Detail LastModifiedTime 02/05/2002/04/2025 XR, chest , 2 view No observ ation record ed. [email or web address] [address] [place], [place], [address], 02/06/2025 09:30:57 Result Notes None recorded. Procedures Surgical History Date Name Laterality Status Provider Name and Address Organization Details Recorded Time appendectomy completed Kenneth Juárez [facility] 01/24/2025 09:26:32 [facility] 01/24/2025 09:26:42 Carpal Tunnel [facility] 01/24/2025 09:27:20 [facility] 01/24/2025 09:27:28 Imaging Results None recorded. Procedure Notes None recorded. Medical Equipment None Reported. Allergies Allergen ID Allergen Name Allergen Category Reaction Reaction Severity Criticality Documentation Date Start Date Code Code System Note Provider Name and Address Organization Details Recorded Time 81484 codeine medicatio n Not available Not available Not available 01/24/2025 2670 [facility] 54891 Product containin g penicilli n (product) medicatio n Not available Not available Not available 01/24/2025 94620 8001 SN[facility]ED [facility] Medications Name Sig Start Date [...] Organization Details Last Updated DateTime 165.1 cm 70 /min 98 [degF] 18 /min 99 % 3 L/min 27.6 kg/m2 74486.3 3 g 103/47 mm[Hg] Anahi Valladares, MANAGER INTERFACE [address] [place], [address], [place] [facility] 14:59:21 Social History Question Answer Notes LastModified by [facility] Details LastModified Time Tobacco Smoking Status Never Smoker Kenneth Juárez [facility], [place] - [facility] 01/24/2025 09:28:08 What Is Your Code Status? DNR [email or web address] Information not available 01/24/2025 Sex: Unknown Functional Status Question Answer Note LastModified by [facility] Details LastModified Time Do you use any [...] ICD10 Code Diagnosis IMO Codes Diagnosis Note [id number] Bettina Yan DO [place] [address] [place] [address] 01/24/2025 21:35:55 01/31/2025 08:10:01 Interstitial lung disease 269019967 J84.9 404387 see above..... 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 643617777 I25.810 57733546 currently no chest pains/p CABG and PCIcontinu e plavix, betablocke r and statin therapyout patient f/u with cardiology as scheduled Benign pro static hyperplasia 255083760 N40.0 93071200 currently no urinary symptoms - he has not been discharged on any meds related to thiswill request home medication list to confirm no usual medication smonitor clinically Hypertensi ve heart disease with congestive heart failure 4350691 I11.0 I50.32 49457945 continue diuretics, betablocke rmonitor blood pressures and adjust meds as clinically indicated Obstructiv e sleep apnea syndrome 67905165 G47.33 205930 continue nighttime cpap with O2 bleed Cobalamin deficiency 190 386637 E53.8 33272 continue replacemen t therapy Acute-on-c hronic respiratory failure 98484077 J96.21 82946715 related to ILD and CHFimprove d with IV diuretics and an increase in his supplement al O2 up to 6 liters/min afognak during his hospitaliz ation now back to usual baseline of 2 liters/min utedoes not appear he was treated with antibiotic s or steroids Hypothyroidism 44191732 E03.9 85978024 presumed stable - continue synthroidm ight consider checking thyroid studies during his stay if they were not checked during recent hospitaliz ation Impaired cognition 57498 6002 R41.89 799973 no diagnosis of dementia - head imaging c/w thismonito r for reversible causeswill have speech therapy follow while here Major depr essive disorder 713508035 F32.9 5247797837 continue sertraline Physical deconditioning 8780503193 9102 R53.81 055571 related to advanced age, recent hospitaliz ation, comorbidit iestherapi es have been initiated - he plans to return home alone upon d/c from [facility] [id number] Bettina DO Farrah [facility] [address] [facility] [address] 01/25/2025 11:01:02 01/31/2025 08:08:43 Opruc-jj-emfgdjy respiratory failure 57159609 J96.21 90169933 Sec to ILD and CHF. Improved with IV diuretics and an increase in his supplement al O2 up to 6 liters/min afognak during his hospitaliz ation. Now back to usual baseline of 2 liters/min afognak. Does not appear he was treated with antibiotic s or steroids.C ontinue therapies and oxygen supplement ation.RT to follow.[facility] andrea if he follows with pulmonary as an outpatient . Interstiti al lung disease 273199280 J84.9 768462 SEE ABOVE... 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 Currently no chest pain.Jane nue Plavix, Metoprolol , and statin.F/U with cards as above. Benign pro static hyperplasia 411573736 N40.0 73299450 Currently no urinary symptoms. He was not discharged on any meds related to this.Reque sted home medication list to confirm no daily medication s.Monitor clinically . Hypertensi ve heart disease with congestive heart failure 9140838 I11.0 I50.31 39315934 Improved with diuresis.C ontinue Jardiance (new), Metoprolol , Spironolac tone, and PRN Lasix.Cont inue supplement oxygen as above.Cont inue to trend blood pressures, monitor lytes and renal function, and adjust meds as clinically indicated. F/U with cards on 02/01. Obstructiv e sleep apnea syndrome 89876825 G47.33 002679 Stable. Continue nighttime cpap with O2 bleed. Cobalamin deficiency 190 326210 E53.8 37993 Presumed stable. Continue supplement . Hypothyroidism 17108453 E03.9 65256896 Presumed stable. Continue SynthroidM ight consider checking thyroid studies during his stay if they were not checked during recent hospitaliz ation. Impaired cognition 67315 6002 R41.89 749717 No former diagnosis of dementia. Head imaging noted moderate atrophy and ischemic small vessel disease.M onitor for reversible causes.ST is following. Major depr essive disorder 391014147 F32.9 4165227245 Stable. Continue Sertraline . Monitor moods. Physical deconditioning 1784982786 9102 R53.81 377373 Related to advanced age, recent hospitaliz ation, comorbidit ies.Contin ue therapies. He plans to return home alone upon d/c from SNF. [id number] Bettina Yan, DO [facility] [address] [place] [address] 01/30/2025 09:58:45 01/31/2025 08:09:21 Mxjpw-wh-xvhboxr respiratory failure 17328136 J96.21 49679072 Sec to ILD and CHF. Improved with IV diuretics and an increase in his supplement al O2 up to 6 liters/min afognak during his hospitaliz ation. Now back to usual baseline of 2 liters/min afognak. Does not appear he was treated with antibiotic s or steroids.C ontinue therapies and oxygen supplement ation.RT to follow.[facility] lear if he follows with pulmonary as an outpatient . Hypertensi ve heart disease with congestive heart failure 4034948 I11.0 I50.31 92388932 Improved with diuresis.C ontinue Jardiance (new), Metoprolol , Spironolac tone, and PRN Lasix.Cont inue supplement oxygen as above.Cont inue to trend blood pressures, monitor lytes and renal function, and adjust meds as clinically indicated. F/U with cards on 02/01. 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 Currently no chest pain.Jane nue Plavix, Metoprolol , and statin.F/U with cards as above. Interstiti al lung disease 275669328 J84.9 007443 SEE ABOVE... Benign pro static hyperplasia 705910948 N40.0 03408092 Currently no urinary symptoms. He was not discharged on any meds related to this.Reque sted home medication list to confirm no daily medication s.Monitor clinically . Hypothyroidism 02872638 E03.9 49171339 Presumed stable. Continue SynthroidC hecking thyroid panel in AM. Cobalamin deficiency 190 293409 E53.8 33738 Presumed stable. Continue supplement . Obstructiv e sleep apnea syndrome 07137860 G47.33 252759 Stable. Continue nighttime cpap with O2 bleed. Impaired cognition 54779 6002 R41.89 508115 No former diagnosis of dementia. Head imaging noted moderate atrophy and ischemic small vessel disease.M onitor for reversible causes.ST is following. Appears more confused than he has previously -- checking UA and labs in AM. Major depr essive disorder 100766412 F32.9 9068407952 Stable. Continue Sertraline . Monitor moods. Physical deconditioning 0198545074 9102 R53.81 525027 Related to advanced age, recent hospitaliz ation, comorbidit ies.Contin ue therapies. He plans to return home alone upon d/c from SNF. [id number] Bettina Yan, DO [address] [address] 02/01/2025 12:27:22 02/06/2025 10:25:29 Eleps-ts-jkiyzcf respiratory failure 13171042 J96.21 10008926 Sec to ILD and CHF. Improved with IV diuretics and an increase in his supplement al O2 up to 6 liters/min afognak during his hospitaliz ation. Now back to usual baseline of 2 liters/min afognak. Does not appear he was treated with antibiotic s or steroids.C ontinue therapies and oxygen supplement ation.RT to follow.[facility] andrea if he follows with pulmonary as an outpatient . Hypertensi ve heart disease with congestive heart failure 5687010 I11.0 I50.31 40168533 Improved with diuresis.C ontinue Jardiance (new), Metoprolol , Spironolac tone, and PRN Lasix.Cont inue supplement oxygen as above.Cont inue to trend blood pressures, monitor lytes and renal function, and adjust meds as clinically indicated. F/U with cards today (02/01). 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 Currently no chest pain.Jane nue Plavix, Metoprolol , and statin.F/U with cards as above. Interstiti al lung disease 870794480 J84.9 905385 SEE ABOVE... Benign pro static hyperplasia 823498009 N40.0 33382506 Currently no urinary symptoms. He was not discharged on any meds related to this.Reque sted home medication list to confirm no daily medication s.Monitor clinically . Hypothyroidism 45030797 E03.9 94037615 01/31/25 = TSH 1.176, Free T4 1.14Stable . Continue Synthroid. Cobalamin deficiency 190 686049 E53.8 00075 Presumed stable. Continue supplement . Obstructiv e sleep apnea syndrome 07662381 G47.33 697158 Stable. Continue nighttime cpap with O2 bleed. Impaired cognition 62824 6002 R41.89 950465 No former diagnosis of dementia. Head imaging noted moderate atrophy and ischemic small vessel disease.S T is following. Labs & UA were unremarkab le. Continue to monitor for reversible causes. Pt remains quite confused. Major depr essive disorder 495222857 F32.9 7031758866 Stable. Continue Sertraline . Monitor moods. Physical deconditioning 8349946241 9102 R53.81 463317 Related to advanced age, recent hospitaliz ation, and comorbidit ies.Contin ue therapies. He plans to return home alone upon d/c from SNF. [id number] Bettina Yan, [address] [address] 02/04/2025 21:09:40 02/06/2025 10:26:09 Ulnmy-ti-hlufldg respiratory failure 99402587 J96.21 94508567 Sec to ILD and CHF. Improved with IV diuretics and an increase in his supplement al O2 up to 6 liters/min afognak during his hospitaliz ation. Now back to usual baseline of 2 liters/min afognak. Does not appear he was treated with antibiotic s or steroids.W ill check CXR in light of cough, weight gain and edemawill schedule lasix routinely for now and monitor clinically RT to follow.[facility] lear if he follows with pulmonary as an outpatient . 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 Currently no chest pain.Jane nue Plavix, Metoprolol , and statin.F/U with cards as above. Interstiti al lung disease 462198187 J84.9 332209 SEE ABOVE... Benign pro static hyperplasia 479261549 N40.0 08555905 Currently no urinary symptoms. He was not discharged on any meds related to this.Monit or clinically . Hypothyroidism 98743338 E03.9 77370790 01/31/25 = TSH 1.176, Free T4 1.14Stable . Continue Synthroid. Cobalamin deficiency 190 094679 E53.8 10263 Presumed stable. Continue supplement . Obstructiv e sleep apnea syndrome 24045915 G47.33 463169 Stable. Continue nighttime cpap with O2 bleed. Impaired cognition 40988 6002 R41.89 462885 No former diagnosis of dementia. Head imaging noted moderate atrophy and ischemic small vessel disease.S T is following. Labs & UA were unremarkab le. Continue to monitor for reversible causes. Pt remains quite confused. Major depr essive disorder 997784438 F32.9 7425256486 Stable. Continue Sertraline . Monitor moods. Physical deconditioning 2502193204 9102 R53.81 764792 Related to advanced age, recent hospitaliz ation, and comorbidit ies.Contin ue therapies. He plans to return home alone upon d/c from SNF - discharge is set for 02/13 [id number] Bettina Yan, DO [place] [address] [place] [address] 02/06/2025 10:10:23 02/08/2025 21:10:03 Zznrs-sb-edtnriw respiratory failure 40633534 J96.21 65462448 Sec to ILD and CHF. Improved with IV diuretics and an increase in his supplement al O2 up to 6 liters/min afognak during his hospitaliz ation. Now back to usual baseline of 2 liters/min afognak. Does not appear he was treated with [...] ve heart disease with congestive heart failure 1140495 I11.0 I50.31 73606369 Improved with diuresis.C ontinue Jardiance (new), Spironolac tone, Lasix (scheduled daily), and Metoprolol (reduced due to bradycardi a).Continu e supplement oxygen as above - he remains on 2 liters/min uteContinu e to trend blood pressures, monitor lytes and renal function, and adjust meds as clinically indicated. F/U with cards last week without new orders. 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 Currently no chest pain.Jane nue Plavix, Metoprolol , and statin.F/U with cards as above. Interstiti al lung disease 676291426 J84.9 426630 SEE ABOVE... Benign pro static hyperplasia 745855767 N40.0 61213338 Currently no urinary symptoms. He was not discharged on any meds related to this.Monit or clinically . Hypothyroidism 19282181 E03.9 22018754 01/31/25 = TSH 1.176, Free T4 1.14Stable . Continue Synthroid. Cobalamin deficiency 190 942526 E53.8 67587 Presumed stable. Continue supplement . Obstructiv e sleep apnea syndrome 43371331 G47.33 180466 Stable. Continue nighttime cpap with O2 bleed. Impaired cognition 23040 6002 R41.89 087653 No former diagnosis of dementia. Head imaging noted moderate atrophy and ischemic small vessel disease.S T is following. SLUMS score on 02/01 was 6/30.Labs & UA were unremarkab le. Continue to monitor for reversible causes. Pt remains quite confused. Major depr essive disorder 236802329 F32.9 7725169359 Stable. Continue Sertraline . Monitor moods. Physical deconditioning 3730394021 9102 R53.81 400658 Related to advanced age, recent hospitaliz ation, and comorbidit ies.Contin ue therapies. Goal is to return home alone upon d/c from SNF -- unclear if this continues to be a safe option due to pt's confusion. [id number] Bettina Yan, DO [facility] [address] [place] [address] 02/08/2025 13:19:52 02/08/2025 21:10:55 Egsoi-ua-cxlcqis respiratory failure 68932868 J96.21 96954506 Sec to ILD and CHF. Improved with IV diuretics and an increase in his supplement al O2 up to 6 liters/min afognak during his hospitaliz ation. Now back to usual baseline of 2 liters/min afognak. Does not appear he was treated with [...] ve heart disease with congestive heart failure 5171954 I11.0 I50.31 98491066 Improved with diuresis. 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 Currently no chest pain.Jane nue Plavix, Metoprolol (reduced), and statin.F/U with cards as above. Interstiti al lung disease 045440959 J84.9 095045 SEE ABOVE... Benign pro static hyperplasia 206453086 N40.0 96360494 Currently no urinary symptoms. He was not discharged on any meds related to this.Monit or clinically . Hypothyroidism 03578868 E03.9 20283331 01/31/25 = TSH 1.176, Free T4 1.14Stable . Continue Synthroid. Cobalamin deficiency 190 720896 E53.8 77206 Presumed stable. Continue supplement . Obstructiv e sleep apnea syndrome 34119686 G47.33 516143 Stable. Continue nighttime cpap with O2 bleed. Impaired cognition 55770 6002 R41.89 251298 No former diagnosis of dementia. Head imaging noted moderate atrophy and ischemic small vessel disease.S T is following. SLUMS score on 02/01 was 6/30.Labs & UA were unremarkab le. Continue to monitor for reversible causes. Pt remains quite confused. Major depr essive disorder 646090201 F32.9 4484025583 Stable. Continue Sertraline . Monitor moods. Physical deconditioning 5476421849 9102 R53.81 914742 Related to advanced age, recent hospitaliz ation, [...] Member ID Fernandez Member ID Guarantor Name 02/08/2025 2 [place] [id number] Abbe Jimenez [id number] Abbe Jimenez 02/08/2025 1 [place] Abbe Jimenez [id number] Abbe Jimenez Notes Date Note Type Note Provider Name and Address Organization Details Recorded Time 02/08/2025 text/html F/U acute on chronic respiratory failure [...] had a change to talk to the but did not believe he had a [...] breathing techniques. sit/stand CGA Standing balance techniques---01/20 06/13Parobinson is seated in his w/c in his [...] ~100' CGA ccues for breathing techniques and posture.---Parobinson is doing well today, seated in his [...] sit to stand and pivot transfers requiring CGA-SBA. Anahi Valladares, BRYNN [address] [facility], [place], [address], [facility] [place] [facility] 02/08/2025 15:13:28
--- OUTSIDE RECORDS SUMMARY | 2025-02-28 19:58 | XMS_ITS | Continuity of Care Document ---
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 Re-requested home med list from Dr. Salazar. armand Not available 01/30/2025 13:46:21 Plan of Treatment Reminders Order Date Submit [...] Modified By Organization Details Last Modified Time 01/30/2025 [id number] I spent 37 minutes providing care to the patient today. More than 50% of that time was spent in discussing the expected course of the disease, discussing prognosis, coordinating care and counseling of the patient/family. Not available 01/30/2025 13:52:43 Reason for Referral None Reported. Results Created Date Observation Date Name Description Value Unit Range Abnormal Flag Note LastModifiedBy Organization Detail LastModifiedTime 02/05/2002/04/2025 XR, chest , 2 view No observ ation record ed. [facility] [address] [place], [place], [address], 02/06/2025 09:30:57 Result Notes None recorded. Procedures Surgical History Date Name Laterality Status Provider Name and Address Organization Details Recorded Time append[facility] completed [facility] 01/24/2025 09:26:32 coronary artery bypass graft [facility] 01/24/2025 09:26:42 Carpal Tunnel Release [facility] 01/24/2025 09:27:20 elbow joint operations [facility] 01/24/2025 09:27:28 Imaging Results None recorded. Procedure Notes None recorded. Medical Equipment None Reported. Allergies Allergen ID Allergen Name Allergen Category Reaction Reaction Severity Criticality Documentation Date Start Date Code Code System Note Provider Name and Address Organization Details Recorded Time 55668 codeine medicatio n Not available Not available Not available 01/24/2025 2670 [facility] 35999 Product containin g penicilli n (product) medicatio n Not available Not available Not available 01/24/2025 15147 8001 [facility]ED [facility] 00:[facility]08 Medications Name Sig Start [...] Organization Details Last Updated DateTime 165.1 cm 57 /min 97.4 [degF] 18 /min 92 % 2 L/min 27.9 kg/m2 30591.8 g 119/59 mm[Hg] Anahi Valladares, BRYNN [address] [place], [address] , [place] - [facility] 13:42:33 Social History Question Answer Notes LastModified by [facility] Details LastModified Time Tobacco Smoking Status Never Smoker Kenneth Juárez [facility], [place] - [facility] 01/24/2025 09:28:08 What Is Your Code Status? DNR [email or web address] Information not available 01/24/2025 Sex: Unknown Functional Status Question Answer Note LastModified by [facility] Details LastModified Time Do you use any [...] ICD10 Code Diagnosis IMO Codes Diagnosis Note [id number] Bettina Yan DO [place] [address] [place] [address] 01/24/2025 21:35:55 01/31/2025 08:10:01 Interstitial lung disease 273128760 J84.9 073624 see above..... 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 557231787 I25.810 07903180 currently no chest pains/p CABG and PCIcontinu e plavix, betablocke r and statin therapyout patient f/u with cardiology as scheduled Benign pro static hyperplasia 910566024 N40.0 18711747 currently no urinary symptoms - he has not been discharged on any meds related to thiswill request home medication list to confirm no usual medication smonitor clinically Hypertensi ve heart disease with congestive heart failure 9948798 I11.0 I50.32 53226784 continue diuretics, betablocke rmonitor blood pressures and adjust meds as clinically indicated Obstructiv e sleep apnea syndrome 07951058 G47.33 104160 continue nighttime cpap with O2 bleed Cobalamin deficiency 190 537091 E53.8 13219 continue replacemen t therapy Acute-on-c hronic respiratory failure 12146279 J96.21 35070756 related to ILD and CHFimprove d with IV diuretics and an increase in his supplement al O2 up to 6 liters/min [place] during his hospitaliz ation now back to usual baseline of 2 liters/min utedoes not appear he was treated with antibiotic s or steroids Hypothyroidism 39340059 E03.9 15936685 presumed stable - continue synthroidm ight consider checking thyroid studies during his stay if they were not checked during recent hospitaliz ation Impaired cognition 12424 6002 R41.89 430409 no diagnosis of dementia - head imaging c/w thismonito r for reversible causeswill have speech therapy follow while here Major depr essive disorder 774365716 F32.9 8272597373 continue sertraline Physical deconditioning 8095948004 9102 R53.81 928395 related to advanced age, recent hospitaliz ation, comorbidit iestherapi es have been initiated - he plans to return home alone upon d/c from [facility] [id number] Bettina Yan DO [facility] [address] [place] [address] 01/25/2025 11:01:02 01/31/2025 08:08:43 Vdoit-zj-ccxldpa respiratory failure 31723141 J96.21 93873408 Sec to ILD and CHF. Improved with IV diuretics and an increase in his supplement al O2 up to 6 liters/min [place] during his hospitaliz ation. Now back to usual baseline of 2 liters/min [place]. Does not appear he was treated with antibiotic s or steroids.C ontinue therapies and oxygen supplement ation.RT to follow.[facility] andrea if he follows with pulmonary as an outpatient . Interstiti al lung disease 749531284 J84.9 392073 SEE ABOVE... 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 Currently no chest pain.Jane nue Plavix, Metoprolol , and statin.F/U with cards as above. Benign pro static hyperplasia 906818782 N40.0 31374216 Currently no urinary symptoms. He was not discharged on any meds related to this.Reque sted home medication list to confirm no daily medication s.Monitor clinically . Hypertensi ve heart disease with congestive heart failure 5137396 I11.0 I50.31 00521921 Improved with diuresis.C ontinue Jardiance (new), Metoprolol , Spironolac tone, and PRN Lasix.Cont inue supplement oxygen as above.Cont inue to trend blood pressures, monitor lytes and renal function, and adjust meds as clinically indicated. F/U with cards on 02/01. Obstructiv e sleep apnea syndrome 93727104 G47.33 724719 Stable. Continue nighttime cpap with O2 bleed. Cobalamin deficiency 190 179083 E53.8 82294 Presumed stable. Continue supplement . Hypothyroidism 92726486 E03.9 98995651 Presumed stable. Continue SynthroidM ight consider checking thyroid studies during his stay if they were not checked during recent hospitaliz ation. Impaired cognition 94717 6002 R41.89 141864 No former diagnosis of dementia. Head imaging noted moderate atrophy and ischemic small vessel disease.M onitor for reversible causes.ST is following. Major depr essive disorder 826564260 F32.9 2431048292 Stable. Continue Sertraline . Monitor moods. Physical deconditioning 9727368893 9102 R53.81 017539 Related to advanced age, recent hospitaliz ation, comorbidit ies.Contin ue therapies. He plans to return home alone upon d/c from SNF. [id number] Bettina Yan, DO [facility] [address] [place] [address] 01/30/2025 09:58:45 01/31/2025 08:09:21 Uhkca-ui-nyogpor respiratory failure 81518718 J96.21 48373685 Sec to ILD and CHF. Improved with IV diuretics and an increase in his supplement al O2 up to 6 liters/min [place] during his hospitaliz ation. Now back to usual baseline of 2 liters/min [place]. Does not appear he was treated with antibiotic s or steroids.C ontinue therapies and oxygen supplement ation.RT to follow.[facility] and[facility] if he follows with pulmonary as an outpatient . Hypertensi ve heart disease with congestive heart failure 8987950 I11.0 I50.31 89635811 Improved with diuresis.C ontinue Jardiance (new), Metoprolol , Spironolac tone, and PRN Lasix.Cont inue supplement oxygen as above.Cont inue to trend blood pressures, monitor lytes and renal function, and adjust meds as clinically indicated. F/U with cards on 02/01. 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 Currently no chest pain.Jane nue Plavix, Metoprolol , and statin.F/U with cards as above. Interstiti al lung disease 547710911 J84.9 606097 SEE ABOVE... Benign pro static hyperplasia 295375283 N40.0 35792192 Currently no urinary symptoms. He was not discharged on any meds related to this.Reque sted home medication list to confirm no daily medication s.Monitor clinically . Hypothyroidism 73555369 E03.9 50259502 Presumed stable. Continue SynthroidC hecking thyroid panel in AM. Cobalamin deficiency 190 554002 E53.8 41478 Presumed stable. Continue supplement . Obstructiv e sleep apnea syndrome 98802958 G47.33 240523 Stable. Continue nighttime cpap with O2 bleed. Impaired cognition 96070 6002 R41.89 636468 No former diagnosis of dementia. Head imaging noted moderate atrophy and ischemic small vessel disease.M onitor for reversible causes.ST is following. Appears more confused than he has previously -- checking UA and labs in AM. Major depr essive disorder 958604456 F32.9 9235242687 Stable. Continue Sertraline . Monitor moods. Physical deconditioning 1990343943 9102 R53.81 381957 Related to advanced age, recent hospitaliz ation, comorbidit ies.Contin ue therapies. He plans to return home alone upon d/c from SNF. Health Concerns Section Related Observation LastModified by Organization Detai ls LastModified Time None Recorded Concern Status LastModified by Organization Details LastModified Time None Recorded Payers Encounter Date Sequence Insurance Name Policy Number Policy Fernandez Covered Member ID Fernandez Member ID Guarantor Name 01/30/2025 2 [place] [id number] Abbe Jimenez [id number] Abbe Jimenez 01/30/2025 1 [place] Abbe Jimenez [id number] Abbe Jimenez Notes Date Note Type Note Provider Name and Address Organization Details Recorded Time 01/30/2025 text/html F/U acute on chronic respiratory failure [...] for breathing techniques. sit/stand CGA Standing balance techniques Anahi Valladares, BRYNN [address] [facility], [place], [address], [place] - [facility] 01/30/2025 13:53:05
--- OUTSIDE RECORDS SUMMARY | 2025-02-28 19:58 | XMS_ITS | Data Portability ---
Author Organization [facility], Main Office Address [address] [place] [address] Care Team Providers Care Electromatic Typist Name Role Phone [facility] FA[facility] OTHER MARTI YARBROUGH Primary Care Provider Assessment Encounter Date Assessment Date Assessment LastModified by Organization Details LastModified Time 02/04/2025 02/04/2025 schedule lasix routinely for now, decrease metoprolol to 25 mg daily, labs in am, CXR today, add compression hose for edema/leg elevation, can use standing orders for guaifenesin for cough, check flu and covid swabs, resident to sleep in bed at night [email or web address] Not available 02/06/2025 06:09:19 02/06/2025 02/06/2025 Monitor HRs -- Metoprolol dose reduced from 50 mg to 25 mg starting yesterday. Not available 02/06/2025 18:42:27 02/08/2025 02/08/2025 Reduce Metoprolol to 12.5 mg every evening, hold parameters in place. Not available 02/08/2025 15:11:28 02/12/2025 02/12/2025 Labs in AM. HRs/BPs improved. Not available 02/12/2025 17:18:59 02/14/2025 02/14/2025 Pt will d/c home on 02/16 with [facility], private duty nursing, and family oversight. Not available 02/14/2025 16:53:45 Plan of Treatment Reminders Order Date Submit Date Provider Last Modified By Organization Details Last Modified Time Details Appointments None recorded. Lab None recorded. Referral None recorded. Procedures None recorded. Surgeries None recorded. Imaging None recorded. Medication Orders empaglifloz in 10 mg tablet 2024 [facility] [id number], [address], 16:55:12 Lasix 40 mg tablet 2024 [facility] [address], [address], 16:55:14 metoprolol succinate ER 25 mg tablet,exte nded release 24 hr 2024 [facility] [address], [address], 16:55:13 spironolact one 25 mg tablet 2024 [facility] [address], [address], 16:55:14 Patient TargetsNo targets recorded. Patient Instructions Encounter Date Encounter Id Patient Instructions Last Modified By Organization Details Last Modified Time 02/06/2025 [id number] I spent 37 minutes providing care to the patient today. More than 50% of that time was spent in discussing the expected course of the disease, discussing prognosis, coordinating care and counseling of the patient/family. Not available 02/06/2025 18:42:06 02/08/2025 [id number] I spent 37 minutes providing care to the patient today. More than 50% of that time was spent in discussing the expected course of the disease, discussing prognosis, coordinating care and counseling of the patient/family. Not available 02/08/2025 15:12:02 02/12/2025 [id number] I spent 38 minutes providing care to the patient today. More than 50% of that time was spent in discussing the expected course of the disease, discussing prognosis, coordinating care and counseling of the patient/family. Not available 02/12/2025 17:20:05 02/14/2025 [id number] I spent 45 minutes providing care to [...] emergency room for new or worsening symptoms. [email or web address] Not available 02/14/2025 16:54:46 Reason for Referral None Reported. Results Created Date Observation Date Name Description Value Unit Range Abnormal Flag Note LastModifiedBy Organization Detail LastModifiedTime 02/05/2002/04/2025 XR, chest , 2 view No observ ation record ed. [facility] ([employer]) [address] [place], [place], [address], 02/06/2025 09:30:57 Result Notes None recorded. Procedures Surgical History Date Name Laterality Status Provider Name and Address Organization Details Recorded Time [facility] [place] [facility] 01/24/2025 09:26:32 [facility] [place] [facility] 01/24/2025 09:26:42 Carpal Tunnel Release completed Marnice Franck [place] [facility] 01/24/2025 09:27:20 [facility] 01/24/2025 09:27:28 Imaging Results None recorded. Procedure Notes None recorded. Medical Equipment None Reported. Allergies Allergen ID Allergen Name Allergen Category Reaction Reaction Severity Criticality Documentation Date Start Date Code Code System Note Provider Name and Address Organization Details Recorded Time 54363 codeine medicatio n Not available Not available Not available 01/24/2025 2670 RxNorm Brian collins [place] [facility] 00:58:03 50653 Product containin g penicilli n (product) medicatio n Not available Not available Not available 01/24/2025 10254 8001 SNOMED Brian Jaquelin collins [facility] 00:58:08 Medications Name Sig Start Date Stop [...] and Address Organization Details Last Updated DateTime 5 62 /min 98.3 [degF] 18 /min 98 % 2 L/min 32102.5 8 g 28.4 kg/m2 165.1 cm 101/52 mm[Hg] [place] [address] [place], [address], [place] [facility] 5 05:46:40 Date Recorded Body height Body mass index (BMI) Body weight Oxygen saturation Inhaled oxygen flow rate Respiratory rate Body temperature Heart rate Systolic And Diastolic Provider Name and Address Organization Details Last Updated DateTime 165.1 cm 27.9 kg/m2 43635.3 6 g 100 % 3 L/min 16 /min 98.2 [degF] 69 /min 129/63 mm[Hg] [place] [address] [place], [address], [place] [facility] 17:42:57 Date Recorded Body height Heart rate Body temperature Respiratory rate Oxygen saturation Inhaled oxygen flow rate Body mass index (BMI) Body weight Systolic And Diastolic Provider Name and Address Organization Details Last Updated DateTime 165.1 cm 70 /min 98 [degF] 18 /min 99 % 3 L/min 27.6 kg/m2 40082.3 3 g 103/47 mm[Hg] [place] [address] [place], [address], [place] [facility] 5 14:59:21 Date Recorded Body height Heart rate Body temperature Respiratory rate Oxygen saturation Body mass index (BMI) Body weight Systolic And Diastolic Provider Name and Address Organization Details Last Updated DateTime 5 165.1 cm 64 /min 98 [degF] 18 /min 97 % 27.1 kg/m2 64917.5 6 g 132/66 mm[Hg] [place] [address] [place], [address], [place] [facility] 5 17:13:55 Date Recorded Body height Heart rate Body temperature Respiratory rate Oxygen saturation Inhaled oxygen flow rate Body mass index (BMI) Body weight Systolic And Diastolic Provider Name and Address Organization Details Last Updated DateTime 5 165.1 cm 73 /min 98.6 [degF] 17 /min 93 % 3 L/min 26.9 kg/m2 45973.2 5 g 107/78 mm[Hg] Anahi Valladares, BRYNN [address] [facility], [place], [address], [place] [facility] 16:38:38 Social History Question Answer Notes LastModified by Organizat ion Details LastModified Time Tobacco Smoking Status Never Smoker Kenneth Juárez null, [place] [facility] 01/24/2025 09:28:08 What [...] ICD10 Code Diagnosis IMO Codes Diagnosis Note [id number] Bettina Yan, [address] [address] 01/24/2025 21:35:55 01/31/2025 08:10:01 Interstitial lung disease 969987390 J84.9 347306 see above..... 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 247751630 I25.810 46158213 currently no chest pains/p CABG and PCIcontinu e plavix, betablocke r and statin therapyout patient f/u with cardiology as scheduled Benign pro static hyperplasia 122323478 N40.0 18681594 currently no urinary symptoms - he has not been discharged on any meds related to thiswill request home medication list to confirm no usual medication smonitor clinically Hypertensi ve heart disease with congestive heart failure 8266459 I11.0 I50.32 81209821 continue diuretics, betablocke rmonitor blood pressures and adjust meds as clinically indicated Obstructiv e sleep apnea syndrome 55387406 G47.33 369646 continue nighttime cpap with O2 bleed Cobalamin deficiency 190 486655 E53.8 29698 continue replacemen t therapy Acute-on-c hronic respiratory failure 16309065 J96.21 43931366 related to ILD and CHFimprove d with IV diuretics and an increase in his supplement al O2 up to 6 liters/min coquille during his hospitaliz ation now back to usual baseline of 2 liters/min utedoes not appear he was treated with antibiotic s or steroids Hypothyroidism 92083744 E03.9 47064014 presumed stable - continue synthroidm ight consider checking thyroid studies during his stay if they were not checked during recent hospitaliz ation Impaired cognition 63691 6002 R41.89 019616 no diagnosis of dementia - head imaging c/w thismonito r for reversible causeswill have speech therapy follow while here Major depr essive disorder 061460850 F32.9 3490344603 continue sertraline Physical deconditioning 4523679113 9102 R53.81 858949 related to advanced age, recent hospitaliz ation, comorbidit iestherapi es have been initiated - he plans to return home alone upon d/c from [facility] [id number] Bettina Yan, [address] [address] 01/25/2025 11:01:02 01/31/2025 08:08:43 Pijtg-qh-rbfitjg respiratory failure 50646342 J96.21 13809054 Sec to ILD and CHF. Improved with IV diuretics and an increase in his supplement al O2 up to 6 liters/min coquille during his hospitaliz ation. Now back to usual baseline of 2 liters/min coquille. Does not appear he was treated with antibiotic s or steroids.C ontinue therapies and oxygen supplement ation.RT to follow.[facility] if he follows with pulmonary as an outpatient . Interstiti al lung disease 690171715 J84.9 783653 SEE ABOVE... 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 Currently no chest pain.Jane nue Plavix, Metoprolol , and statin.F/U with cards as above. Benign pro static hyperplasia 884334277 N40.0 80982076 Currently no urinary symptoms. He was not discharged on any meds related to this.Reque sted home medication list to confirm no daily medication s.Monitor clinically . Hypertensi ve heart disease with congestive heart failure 4121576 I11.0 I50.31 36347855 Improved with diuresis.C ontinue Jardiance (new), Metoprolol , Spironolac tone, and PRN Lasix.Cont inue supplement oxygen as above.Cont inue to trend blood pressures, monitor lytes and renal function, and adjust meds as clinically indicated. F/U with cards on 02/01. Obstructiv e sleep apnea syndrome 38401867 G47.33 454282 Stable. Continue nighttime cpap with O2 bleed. Cobalamin deficiency 190 689314 E53.8 35586 Presumed stable. Continue supplement . Hypothyroidism 58604481 E03.9 99724989 Presumed stable. Continue SynthroidM ight consider checking thyroid studies during his stay if they were not checked during recent hospitaliz ation. Impaired cognition 66527 6002 R41.89 175057 No former diagnosis of dementia. Head imaging noted moderate atrophy and ischemic small vessel disease.M onitor for reversible causes.ST is following. Major depr essive disorder 871573342 F32.9 2570100141 Stable. Continue Sertraline . Monitor moods. Physical deconditioning 2765176029 9102 R53.81 296101 Related to advanced age, recent hospitaliz ation, comorbidit ies.Contin ue therapies. He plans to return home alone upon d/c from [facility]. [id number] Bettina Yan DO [place] [address] [place] [address] 01/30/2025 09:58:45 01/31/2025 08:09:21 Xnoza-zr-dloxpxt respiratory failure 53117992 J96.21 04227178 Sec to ILD and CHF. Improved with IV diuretics and an increase in his supplement al O2 up to 6 liters/min coquille during his hospitaliz ation. Now back to usual baseline of 2 liters/min coquille. Does not appear he was treated with antibiotic s or steroids.C ontinue therapies and oxygen supplement ation.RT to follow.[facility] andrea if he follows with pulmonary as an outpatient . Hypertensi ve heart disease with congestive heart failure 5088743 I11.0 I50.31 27918426 Improved with diuresis.C ontinue Jardiance (new), Metoprolol , Spironolac tone, and PRN Lasix.Cont inue supplement oxygen as above.Cont inue to trend blood pressures, monitor lytes and renal function, and adjust meds as clinically indicated. F/U with cards on 02/01. 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 Currently no chest pain.Jane nue Plavix, Metoprolol , and statin.F/U with cards as above. Interstiti al lung disease 491834572 J84.9 475604 SEE ABOVE... Benign pro static hyperplasia 073032516 N40.0 72281953 Currently no urinary symptoms. He was not discharged on any meds related to this.Reque sted home medication list to confirm no daily medication s.Monitor clinically . Hypothyroidism 27896444 E03.9 97372002 Presumed stable. Continue SynthroidC hecking thyroid panel in AM. Cobalamin deficiency 190 599183 E53.8 53502 Presumed stable. Continue supplement . Obstructiv e sleep apnea syndrome 83752930 G47.33 910617 Stable. Continue nighttime cpap with O2 bleed. Impaired cognition 00875 6002 R41.89 619156 No former diagnosis of dementia. Head imaging noted moderate atrophy and ischemic small vessel disease.M onitor for reversible causes.ST is following. Appears more confused than he has previously -- checking UA and labs in AM. Major depr essive disorder 141074074 F32.9 6100016573 Stable. Continue Sertraline . Monitor moods. Physical deconditioning 0174610194 9102 R53.81 311227 Related to advanced age, recent hospitaliz ation, comorbidit ies.Contin ue therapies. He plans to return home alone upon d/c from [facility]. [id number] Bettina Daytonvidhya, DO [facility] [address] [place] [address] 02/01/2025 12:27:22 02/06/2025 10:25:29 Cusqu-iu-rkcuuno respiratory failure 72558544 J96.21 75509714 Sec to ILD and CHF. Improved with IV diuretics and an increase in his supplement al O2 up to 6 liters/min coquille during his hospitaliz ation. Now back to usual baseline of 2 liters/min coquille. Does not appear he was treated with antibiotic s or steroids.C ontinue therapies and oxygen supplement ation.RT to follow.[facility] lear if he follows with pulmonary as an outpatient . Hypertensi ve heart disease with congestive heart failure 1569934 I11.0 I50.31 73781327 Improved with diuresis.C ontinue Jardiance (new), Metoprolol , Spironolac tone, and PRN Lasix.Cont inue supplement oxygen as above.Cont inue to trend blood pressures, monitor lytes and renal function, and adjust meds as clinically indicated. F/U with cards today (02/01). 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 Currently no chest pain.Jane nue Plavix, Metoprolol , and statin.F/U with cards as above. Interstiti al lung disease 398570745 J84.9 364234 SEE ABOVE... Benign pro static hyperplasia 944432036 N40.0 85356235 Currently no urinary symptoms. He was not discharged on any meds related to this.Reque sted home medication list to confirm no daily medication s.Monitor clinically . Hypothyroidism 17086944 E03.9 22324129 01/31/25 = TSH 1.176, Free T4 1.14Stable . Continue Synthroid. Cobalamin deficiency 190 903777 E53.8 55150 Presumed stable. Continue supplement . Obstructiv e sleep apnea syndrome 75614547 G47.33 563254 Stable. Continue nighttime cpap with O2 bleed. Impaired cognition 81293 6002 R41.89 783765 No former diagnosis of dementia. Head imaging noted moderate atrophy and ischemic small vessel disease.S T is following. Labs & UA were unremarkab le. Continue to monitor for reversible causes. Pt remains quite confused. Major depr essive disorder 632466987 F32.9 0543253140 Stable. Continue Sertraline . Monitor moods. Physical deconditioning 1854931732 9102 R53.81 639431 Related to advanced age, recent hospitaliz ation, and comorbidit ies.Contin ue therapies. He plans to return home alone upon d/c from SNF. [id number] Bettina Yan, [address] [address] 02/04/2025 21:09:40 02/06/2025 10:26:09 Zntaw-hp-rixaqiw respiratory failure 62295115 J96.21 60175966 Sec to ILD and CHF. Improved with IV diuretics and an increase in his supplement al O2 up to 6 liters/min coquille during his hospitaliz ation. Now back to usual baseline of 2 liters/min coquille. Does not appear he was treated with antibiotic s or steroids.W ill check CXR in light of cough, weight gain and edemawill schedule lasix routinely for now and monitor clinically RT to follow.[facility] andrea if he follows with pulmonary as an outpatient . 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 Currently no chest pain.Jane nue Plavix, Metoprolol , and statin.F/U with cards as above. Interstiti al lung disease 070247757 J84.9 111957 SEE ABOVE... Benign pro static hyperplasia 724675450 N40.0 95532289 Currently no urinary symptoms. He was not discharged on any meds related to this.Monit or clinically . Hypothyroidism 37113509 E03.9 97441606 01/31/25 = TSH 1.176, Free T4 1.14Stable . Continue Synthroid. Cobalamin deficiency 190 143783 E53.8 19062 Presumed stable. Continue supplement . Obstructiv e sleep apnea syndrome 63312388 G47.33 423125 Stable. Continue nighttime cpap with O2 bleed. Impaired cognition 61977 6002 R41.89 118117 No former diagnosis of dementia. Head imaging noted moderate atrophy and ischemic small vessel disease.S T is following. Labs & UA were unremarkab le. Continue to monitor for reversible causes. Pt remains quite confused. Major depr essive disorder 984532556 F32.9 9125809461 Stable. Continue Sertraline . Monitor moods. Physical deconditioning 8915999322 9102 R53.81 720386 Related to advanced age, recent hospitaliz ation, and comorbidit ies.Contin ue therapies. He plans to return home alone upon d/c from SNF - discharge is set for 02/13 [id number] Bettina Yan, DO [address] [address] 02/06/2025 10:10:23 02/08/2025 21:10:03 Invgq-ma-cziefyr respiratory failure 42547614 J96.21 46192934 Sec to ILD and CHF. Improved with IV diuretics and an increase in his supplement al O2 up to 6 liters/min coquille during his hospitaliz ation. Now back to usual baseline of 2 liters/min coquille. Does not appear he was treated with [...] ve heart disease with congestive heart failure 9447564 I11.0 I50.31 77484324 Improved with diuresis.C ontinue Jardiance (new), Spironolac tone, Lasix (scheduled daily), and Metoprolol (reduced due to bradycardi a).Continu e supplement oxygen as above - he remains on 2 liters/min uteContinu e to trend blood pressures, monitor lytes and renal function, and adjust meds as clinically indicated. F/U with cards last week without new orders. 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 Currently no chest pain.Jane nue Plavix, Metoprolol , and statin.F/U with cards as above. Interstiti al lung disease 170704522 J84.9 704645 SEE ABOVE... Benign pro static hyperplasia 690023459 N40.0 58253672 Currently no urinary symptoms. He was not discharged on any meds related to this.Monit or clinically . Hypothyroidism 84076441 E03.9 93007424 01/31/25 = TSH 1.176, Free T4 1.14Stable . Continue Synthroid. Cobalamin deficiency 190 273729 E53.8 18011 Presumed stable. Continue supplement . Obstructiv e sleep apnea syndrome 78286487 G47.33 108868 Stable. Continue nighttime cpap with O2 bleed. Impaired cognition 84245 6002 R41.89 175998 No former diagnosis of dementia. Head imaging noted moderate atrophy and ischemic small vessel disease.S T is following. SLUMS score on 02/01 was 6/30.Labs & UA were unremarkab le. Continue to monitor for reversible causes. Pt remains quite confused. Major depr essive disorder 840098482 F32.9 5076211730 Stable. Continue Sertraline . Monitor moods. Physical deconditioning 9580245269 9102 R53.81 267142 Related to advanced age, recent hospitaliz ation, and comorbidit ies.Contin ue therapies. Goal is to return home alone upon d/c from SNF -- unclear if this continues to be a safe option due to pt's confusion. [id number] Bettina Yan, DO [place] [address] [place] [address] 02/08/2025 13:19:52 02/08/2025 21:10:55 Pftcv-yx-mboxozq respiratory failure 86420198 J96.21 01049913 Sec to ILD and CHF. Improved with IV diuretics and an increase in his supplement al O2 up to 6 liters/min coquille during his hospitaliz ation. Now back to usual baseline of 2 liters/min coquille. Does not appear he was treated with [...] ve heart disease with congestive heart failure 5340423 I11.0 I50.31 13848617 Improved with diuresis. 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 Currently no chest pain.Jane nue Plavix, Metoprolol (reduced), and statin.F/U with cards as above. Interstiti al lung disease 013034177 J84.9 367836 SEE ABOVE... Benign pro static hyperplasia 490612571 N40.0 79209716 Currently no urinary symptoms. He was not discharged on any meds related to this.Monit or clinically . Hypothyroidism 44059957 E03.9 17807568 01/31/25 = TSH 1.176, Free T4 1.14Stable . Continue Synthroid. Cobalamin deficiency 190 562282 E53.8 48591 Presumed stable. Continue supplement . Obstructiv e sleep apnea syndrome 48550354 G47.33 808147 Stable. Continue nighttime cpap with O2 bleed. Impaired cognition 32129 6002 R41.89 634766 No former diagnosis of dementia. Head imaging noted moderate atrophy and ischemic small vessel disease.S T is following. SLUMS score on 02/01 was 6/30.Labs & UA were unremarkab le. Continue to monitor for reversible causes. Pt remains quite confused. Major depr essive disorder 823877467 F32.9 3670182140 Stable. Continue Sertraline . Monitor moods. Physical deconditioning 1298326531 9102 R53.81 633593 Related to advanced age, recent hospitaliz ation, and comorbidit ies.Contin ue therapies. Goal is to return home alone upon d/c from SNF -- unclear if this continues to be a safe option due to pt's confusion. [id number] Bettina Yan, [address] [address] 02/12/2025 10:13:23 02/15/2025 20:41:54 Aslxo-mg-vzdenab respiratory failure 75412168 J96.21 47961433 Sec to ILD and CHF. Improved with IV diuretics and an increase in his supplement al O2 up to 6 liters/min coquille during his hospitaliz ation. Now back to usual baseline of 2 liters/min coquille. Does not appear he was treated with [...] ve heart disease with congestive heart failure 8625480 I11.0 I50.31 42340085 Improved with diuresis. 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 Currently no chest pain.Jane nue Plavix, Metoprolol (reduced), and statin.F/U with cards as above. Interstiti al lung disease 376089154 J84.9 790089 SEE ABOVE... Benign pro static hyperplasia 103549076 N40.0 40858743 Currently no urinary symptoms. He was not discharged on any meds related to this.Monit or clinically . Hypothyroidism 25585196 E03.9 47734466 01/31/25 = TSH 1.176, Free T4 1.14Stable . Continue Synthroid. Cobalamin deficiency 190 608327 E53.8 38402 Presumed stable. Continue supplement . Obstructiv e sleep apnea syndrome 31270503 G47.33 555210 Stable. Continue nighttime cpap with O2 bleed. Impaired cognition 57789 6002 R41.89 729155 No former diagnosis of dementia. Head imaging noted moderate atrophy and ischemic small vessel disease.S T is following. SLUMS score on 02/01 was 6/30.Labs & UA were unremarkab le. Continue to monitor for reversible causes. Pt remains quite confused. Major depr essive disorder 499452589 F32.9 4602669573 Stable. Continue Sertraline . Monitor moods. Physical deconditioning 7551536954 9102 R53.81 288316 Related to advanced age, recent hospitaliz ation, and comorbidit ies.Contin ue therapies. Goal is to return home alone upon d/c from SNF -- unclear if this continues to be a safe option due to pt's confusion. [id number] Bettina Yan DO [address] [address] 02/14/2025 14:33:10 02/15/2025 20:42:43 Dmhpo-lh-tdyjpao respiratory failure 59104362 J96.21 [id number] Sec to ILD and CHF. Improved with IV diuretics and an increase in his supplement al O2 up to 6 liters/min coquille during his hospitaliz ation. Now back to usual baseline of 2 liters/min coquille. Does not appear he was treated with [...] ve heart disease with congestive heart failure 9550552 I11.0 I50.31 85544552 Improved with diuresis. 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 Currently no chest pain.Jane nue Plavix, Metoprolol (reduced), and statin.F/U with cards as above. Interstiti al lung disease 600879872 J84.9 420546 SEE ABOVE... Benign pro static hyperplasia 527585200 N40.0 80088951 Currently no urinary symptoms. He was not discharged on any meds related to this.Monit or clinically . Hypothyroidism 12515350 E03.9 10344665 01/31/25 = TSH 1.176, Free T4 1.14Stable . Continue Synthroid. Cobalamin deficiency 190 535784 E53.8 20384 Presumed stable. Continue supplement . Obstructiv e sleep apnea syndrome 98961810 G47.33 136096 Stable. Continue nighttime cpap with O2 bleed. Impaired cognition 97663 6002 R41.89 568775 No former diagnosis of dementia. Head imaging noted moderate atrophy and ischemic small vessel disease.S T is following. SLUMS score on 02/01 was 6/30.Labs & UA were unremarkab le. Continue to monitor for reversible causes. Pt remains quite confused. Recommend neuropsych iatric evaluation as OP for formal diagnosis. Major depr essive disorder 787124623 F32.9 [id number] Stable. Continue Sertraline . Monitor moods. Health Concerns Section Related Observation LastModified by Organization Detai ls LastModified Time None Recorded Concern Status LastModified by Organization Details LastModified Time None Recorded Advance Directives Directive None Recorded Payers Insurance Date Sequence Insurance Name Policy Number Policy Fernandez Covered Member ID Fernandez Member ID Guarantor Name 02/13/2025 2 [place] [id number] Abbe Jimenez [id number] Abbe Jimenez 02/15/2025 1 [place] Abbe Jimenez [id number] Abbe Jimenez Notes Date Note Type Note Provider Name and Address Organization Details Recorded Time 02/04/2025 text/html F/U acute on chronic respiratory failure sec to CHF exacerbation & chronic interstitial lung disease, weakness/deconditionin g, and chronic medical conditions.---01/24/25G eorge is sitting up in his bedside chair this afternoon. He is a fair historian with some forgetfulness/confusio n. Respiratory status stable with supplemental O2 at 2 liters. He got some extra aldactone this am due to a nursing med error. He has not noticed a subsequent increase in urination. No new concerns / complaints.---01/25/25P aublanca is seated in his recliner in his [...] with pt standing on uneven surface of airex.---01/30/25Paul is seated in his w/c in his [...] and 60s - [place]oprol[place] [address] [facility], [place], [address], [facility] 02/06/2025 06:14:27 02/06/2025 text/html F/U acute on chronic respiratory failure sec to CHF exacerbation & chronic interstitial lung disease, weakness/deconditionin g, and chronic medical conditions.---01/24/25G issac is sitting up in his bedside chair [...] with pt standing on uneven surface of airex.---01/30/25Parobinson is seated in his w/c in his [...] and 60s - metoprolol was held this am.---02/06/25Brian is doing well today, confused but without [...] breathing techniques and posture. Anahi Valladares, BRYNN [address] [facility], [place], [address], [place] [facility] 02/06/2025 18:42:39 02/08/2025 text/html F/U acute on chronic respiratory failure sec to CHF exacerbation & chronic interstitial lung disease, weakness/deconditionin g, and chronic medical conditions.---01/24/25G eorjoseluis is sitting up in his bedside chair [...] with pt standing on uneven surface of airex.---01/30/25Parobinson is seated in his w/c in his [...] and 60s - metoprolol was held this am.---02/06/25Brian is doing well today, confused but without [...] pivot transfers requiring CGA-SBA. Anahi Valladares, BRYNN [address] [facility], [address], [place] [facility] 02/08/2025 15:13:28 02/12/2025 text/html F/U acute on chronic respiratory failure sec to CHF exacerbation & chronic interstitial lung disease, weakness/deconditionin g, and chronic medical conditions.---01/24/25G maritzarjoseluis is sitting up in his bedside chair [...] with pt standing on uneven surface of airex.---01/30/25Parobinson is seated in his w/c in his [...] to stand and pivot transfers requiring CGA-SBA.---02/12/25Pa ul is fairing well today, confused but pleasant, without pain or concerns to report today. 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 We discuss his fall, which he [...] to toilet and EOB. 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 We discuss his fall, which he [...] and independence with transfer to toilet and EOB.---02/14/25Parobinson is doing fairly well today, seated in [...] on 02/16 with , private-duty nursing, and HHC. Per therapy notes = Conducted gait training with rollator 150' x 2 SBA cues for breathing techniques and standing rest breaks. Anahi Valladares, BRYNN [address] [facility], [place], [address], [place] [facility] 02/14/2025 16:55:12
--- OUTSIDE RECORDS SUMMARY | 2025-02-28 19:58 | XMS_ITS | Continuity of Care Document ---
Author Organization [place] [facility], [facility] [place] Address [address] [place] [address] Care Team Providers Care Cesspool Cleaner Name Role Phone [facility] OTHER MARTI SALAZAR Primary Care Provider Assessment Encounter Date Assessment Date Assessment LastModified by Organization Details LastModified Time 01/24/2025 01/24/2025 f/u labs 01/31 need home med list from Dr. Salazar mvandorn Not available 01/26/2025 06:55:30 Plan of Treatment Reminders Order Date Submit [...] Modified By Organization Details Last Modified Time 01/24/2025 [id number] I spent >50 minutes providing care to the patient today. More than 50% of that time was spent in discussing the expected course of the disease, discussing prognosis, coordinating care and counseling of the patient/family. I spent 16 minutes counseling and discussing advance directives and/or end of life care planning and decisions with the patient today. I reviewed the current relevant diagnoses, treatment options, natural history, and prognosis and clarified the patient's goals of care. code status DNR [email or web address] Not available 01/27/2025 22:46:22 Reason for Referral None Reported. Results Created Date Observation Date Name Description Value Unit Range Abnormal Flag Note LastModifiedBy Organization Detail LastModifiedTime 02/05/20 25 02/04/2025 XR, chest , 2 view No observ ation record ed. [facility] [address] [place], [place], [address], 02/06/2025 09:30:57 Result Notes None recorded. Procedures Surgical History Date Name Laterality Status Provider Name and Address Organization Details Recorded Time appendectomy completed Kenneth Juárez [facility] 01/24/2025 09:26:32 [facility] 01/24/2025 09:26:42 Carpal Tunnel [facility] 01/24/2025 09:27:20 elbow joint [facility] 01/24/2025 09:27:28 Imaging Results None recorded. Procedure Notes None recorded. Medical Equipment None Reported. Allergies Allergen ID Allergen Name Allergen Category Reaction Reaction Severity Criticality Documentation Date Start Date Code Code System Note Provider Name and Address Organization Details Recorded Time 42855 codeine medicatio n Not available Not available Not available 01/24/2025 2670 RxNorm [facility] 00:[facility] 38731 Product containin g penicilli n (product) medicatio n Not available Not available Not available 01/24/2025 67871 8001 SNOMED Brian Hammer [facility] 00:58:08 Medications Name Sig Start Date [...] Body temperature Respiratory rate Oxygen saturation Body weight Body mass index (BMI) Body height Systolic And Diastolic Provider Name and Address Organization Details Last Updated DateTime 58 /min 97.9 [degF] 18 /min 97 % 12203.8 7 g 27.3 kg/m2 165.1 cm 105/58 mm[Hg] [place] [address] [place], [address], [place] [facility] 5 08:09:46 Date Recorded Heart rate Body temperature Respiratory rate Oxygen saturation Inhaled oxygen flow rate Body weight Body mass index (BMI) Body height Systolic And Diastolic Provider Name and Address Organization Details Last Updated DateTime 5 95 /min 97.8 [degF] 20 /min 98 % 3 L/min 55703.8 7 g 27.3 kg/m2 165.1 cm 104/49 mm[Hg] Anahi Valladares, BRYNN [address] [place], [address], [place] [facility] 5 17:12:47 Social History Question Answer Notes LastModified by Organizat ion Details LastModified Time Tobacco Smoking Status Never Smoker Kenneth Juárez [facility], [place] - [facility] 01/24/2025 09:28:08 What [...] ICD10 Code Diagnosis IMO Codes Diagnosis Note [id number] Bettina Farrah, [address] [address] 01/24/2025 21:35:55 01/31/2025 08:10:01 Interstitial lung disease 876091607 J84.9 765452 see above..... .continue supplement al O2 at 2 liters/min uteunclear if he follows with pulmonary as an outpatient Chronic di astolic heart failure 128490630 I50.32 409324 continue meds as ordered - newly started on jardiance, lasix and aldactone on hospital dischargem onitor daily weights and trend labsf/u with cards as scheduled 02/01 Arterioscl erosis of coronary artery bypass graft 924948783 I25.810 62456983 currently no chest pains/p CABG and PCIcontinu e plavix, betablocke r and statin therapyout patient f/u with cardiology as scheduled Benign pro static hyperplasia 607210842 N40.0 24508332 currently no urinary symptoms - he has not been discharged on any meds related to thiswill request home medication list to confirm no usual medication smonitor clinically Hypertensi ve heart disease with congestive heart failure 6132430 I11.0 I50.32 34564917 continue diuretics, betablocke rmonitor blood pressures and adjust meds as clinically indicated Obstructiv e sleep apnea syndrome 80533488 G47.33 796088 continue nighttime cpap with O2 bleed Cobalamin deficiency 190 012612 E53.8 13490 continue replacemen t therapy Acute-on-c hronic respiratory failure 07789533 J96.21 39065754 related to ILD and CHFimprove d with IV diuretics and an increase in his supplement al O2 up to 6 liters/min virignie during his hospitaliz ation now back to usual baseline of 2 liters/min utedoes not appear he was treated with antibiotic s or steroids Hypothyroidism 82690925 E03.9 99894170 presumed stable - continue synthroidm ight consider checking thyroid studies during his stay if they were not checked during recent hospitaliz ation Impaired cognition 80617 6002 R41.89 978068 no diagnosis of dementia - [facility] for reversible causeswill have speech therapy follow while here Major depr essive disorder 122453631 F32.9 9687461041 continue sertraline Physical deconditioning 3116315333 9102 R53.81 943856 related to advanced age, recent hospitaliz ation, comorbidit iestherapi es have been initiated - he plans to return home alone upon d/c from SNF Health Concerns Section Related Observation LastModified by Organization Detai ls LastModified Time None Recorded Concern Status LastModified by Organization Details LastModified Time None Recorded Payers Encounter Date Sequence Insurance Name Policy Number Policy Fernandez Covered Member ID Fernandez Member ID Guarantor Name 01/24/2025 2 [place] [id number] Abbe Jimenez [id number] Abbe Jimenez 01/24/2025 1 [place] Abbe Jimenez [id number] Abbe Jimenez Notes Date Note Type Note Provider Name and Address Organization Details Recorded Time 01/24/2025 text/html 84 Y/O male admitted to [place] for post acute rehab subsequent to an inpatient stay at [facility] 01/19-01/23/25 related to acute on chronic respiratory failure/CHF. Per hospital d/c summary: HOSPITAL COURSE: Abbe Jimenez is an 84-year-old male with a history of interstitial lung disease, chronic diastolic heart failure, coronary artery disease (status post CABG x4 and PCI), BPH, B12 deficiency, hypertension, asthma, and KATINA on CPAP, who was admitted for acute on chronic respiratory failure with hypoxia and lower extremity swelling. The following medical issues were addressed during this admission: 1. Acute on Chronic Respiratory Failure with Hypoxia He presented with progressive shortness of breath and [...] to be acute on chronic diastolic heart failure. 2. Chronic Diastolic (Congestive) Heart Failure He had an exacerbation of heart failure, evidenced [...] and spironolactone. Echocardiogram was ordered for further assessment. 3. Interstitial Lung Disease His underlying interstitial lung disease contributed to his chronic respiratory failure and hypoxia. Imaging showed diffuse bronchiectasis, groundglass opacities, interstitial thickening, and scarring. He remained on home oxygen at 2L and received scheduled and PRN nebulizer treatments. 4. Coronary Artery Disease History of CAD with prior CABG x4 and PCI. No chest pain or acute coronary syndrome during admission. Cardiology recommended continuation of antiplatelet and statin therapy. 5. Hypertension Blood pressures were soft during admission, and antihypertensives were held as needed. Parameters were set to guide diuretic administration based on MAP. 6. Obstructive Sleep Apnea (KATINA) on CPAP He uses CPAP nightly at home, and this was continued during hospitalization. 7. BPH (Benign Prostatic Hyperplasia) History of BPH, with no acute urinary issues during admission. Home medications were resumed after reconciliation. Other Considerations He demonstrated mild memory impairment, possibly related to chronic small vessel ischemic disease and atrophy seen on CT head. He remained alert and oriented, with intact judgment and memory throughout admission. He was independent with ADLs and IADLs prior to admission New medications: jardiance, lasix, aldactoneNO dose adjusted or discontinued meds Abbe is sitting up in his bedside chair this afternoon. He is a fair historian with some forgetfulness/confusio n. Respiratory status stable with supplemental O2 at 2 liters. He got some extra aldactone this am due to a nursing med error. He has not noticed a subsequent increase in urination. No new concerns / complaints. Code status is DNRPOA, son, Rose [facility] at baselineuses O2 at 2-3 LPM [facility] [place] [address] [place], [address], [facility] 01/28/2025 08:29:27 01/25/2025 text/html F/U acute on chronic respiratory [...] increase in urination. No new concerns / complaints.---01/25/25G eorge is seated in his recliner in his [...] uneven surface of airex. Anahi Valladares, BRYNN [address] [place], [address], [facility] 01/29/2025 09:53:12
--- OUTSIDE RECORDS SUMMARY | 2025-02-28 19:58 | XMS_ITS | Clinical Summary ---
Author Organization [facility] Address [address] [place] [address] Phone Care Team Providers Care Casting Agent Name Role Phone Solo Salazar MD Primary Care Provider [phone] Allergies Active Allergy Reactions Criticality Noted Date Comments Codeine Other (see Comments) 03/14/2020 Penicillins Hives 03/14/2020 Medications metoprolol Succinate (TOPROL-XL) 50 MG TABLET SR 24 HR Take 50 mg by mouth daily. 11/23/2024 Active sertraline (ZOLOFT) 100 MG Tablet Take 200 mg by mouth daily. Active levothyroxine (SYNTHROID) 88 MCG Tablet Take 88 mcg by mouth daily. 08/02/2023 Active clopidogrel (PLAVIX) 75 MG Tablet Take 75 mg by mouth daily. 08/03/2017 Active atorvastatin (LIPITOR) 80 MG Tablet Take 80 mg by mouth nightly. 08/07/2017 Active empagliflozin (JARDIANCE) 10 MG Tablet Take 1 Tablet by mouth daily. 30 Tablet 01/22/2025 Active spironolactone (ALDACTONE) 25 MG Tablet Take 1 Tablet by mouth daily. 90 Tablet 01/22/2025 Active furosemide (LASIX) 40 MG Tablet Take 1 Tablet by mouth daily as needed for Other (weight gain of 2 lbs or more in a day, 3 lbs or more in a week, or leg edema). 90 Tablet 01/22/2025 Active Active Problems Problem Noted Date Diagnosed Date Acute on chronic respiratory failure with hypoxi a 01/19/2025 Interstitial lung disease BPH (benign prostatic hyperplasia) B12 deficiency CAD (coronary artery disease) Overview (01/19/2025): with cardiac stent Chronic diastolic (congestive) heart failure HTN (hypertension) KATINA on CPAP Encounters Date Type Department Care Team Description 01/19/2025 12:35 PM CDT - 01/23/2025 3:10 PM EDUCATIONAL TECHNOLOGIST Hospital Encounter [facility] Intensive Care [address] [place] [address] Camden James MD Carmicheal, MD Guadalupe Greenberg Behfar, MD Acute on chronic respiratory failure with hypoxia Discharge Disposition: Discharged/Transfer red to SNF 01/19/2025 Travel from Last 3 Months Social History Tobacco Use Types Packs/Day Years Used Date Smoking Tobacco: Never Alcohol Use Standard Drinks/Week Comments Not Currently 0 (1 standard drink = 0.6 oz pur e alcohol) Hunger Vital Sign Answer Date Recorded Within the past 12 months, y ou worried that your food would run out before you got the money to buy more. Never true 01/20/20 25 Within the past 12 months, t he food you bought just didn't last and you didn't have money to get more. Never true 01/19/2025 PRAPARE - Transportation Answer Date Re corded In the past 12 months, has l ack of transportation kept you from medical appointments or from getting medications? No 12/22 In the past 12 months, has l ack of transportation kept you from meetings, work, or from getting things needed for daily living? No 01/19/2025 Housing Stability Vital Sign Answer Igles[place] e Recorded In the last 12 months, was t here a time when you were not able to pay the mortgage or rent on time? No 01/19/2025 In the past 12 months, how m any times have you moved where you were living? 1 01/19/2025 At any time in the past 12 m [facility], were you homeless or living in a [facility] (including now)? No 01/19/2025 [facility] Utilities Answer Date Recorded In the past 12 months has th e electric, gas, oil, or water company threatened to shut off services in your home? No 01/19/2025 Sex and Gender Information Value Date Recorded Sex Assigned at Not on file Legal Sex Male 8:56 PM CDT Gender Identity Not on file Sexual Orientation Not on file Last Filed Vital Signs Vital Sign Reading Time Taken Comments Blood Pressure 95/73 01/23/2025 12:00 PM EDUCATIONAL TECHNOLOGIST Pulse 59 01/23/2025 12:00 PM EDUCATIONAL TECHNOLOGIST Temperature 37.1 C (98.8 F) 01/23/2025 7:00 AM EDUCATIONAL TECHNOLOGIST Respiratory Rate 19 01/23/2025 12:00 PM EDUCATIONAL TECHNOLOGIST Oxygen Saturation 99% 01/23/2025 12:00 PM EDUCATIONAL TECHNOLOGIST Inhaled Oxygen Concentration - - Weight 75 kg (165 lb 5.5 oz) 01/22/2025 6:00 AM EDUCATIONAL TECHNOLOGIST Height 165.1 cm (5' 5) 01/19/2025 1:29 PM CDT Body Mass Index 27.51 01/19/2025 1:29 PM CDT Plan of Treatment Health Maintenance Due Date Last Done Comments Hepatitis C Virus (HCV) Screening 1940 TdaP Immunization 1940 Zoster Immunization (1 of 2) 1991 Medicare Initial AWV [id number] 03/22/2007 Respiratory Syncytial Virus (RSV) Immunization (Adult) (1 - 1-dose 75+ series) 2016 Pneumococcal Immunization (5 0+ years) (2 of 2 - PCV) 03/07/2020 03/07/2019, 03/22/2010, 04/26/2009 Influenza Immunization (#1) 2024 1010/2019, 12/22/2017, 01/14/2016 SARS-COV-2 Immunization ( season) 2024 03/06/2021, 05/15/2020, 04/23/2020 Hepatitis B Immunization Aged Out No longer eligible based on patient's age to complete this topic Human Papillomavirus (HPV) Immunization (No Doses Required) Completed Meningococcal Immunization (ACWY) Aged Out No longer eligible b ased on patient's age to complete this topic Rotavirus Immunization Aged Out No lo nger eligible based on patient's age to complete this topic Procedures Procedure Name Priority Date/Time Associated Diagnosis Comments RHYTHM STRIP 01/23/2025 12:00 AM EDUCATIONAL TECHNOLOGIST RHYTHM STRIP 01/23/2025 12:00 AM EDUCATIONAL TECHNOLOGIST ADULT TRANS THORACIC ECHO 2D COMPLT W CONT Routine 01/22/2025 11:50 AM EDUCATIONAL TECHNOLOGIST CBC WITH AUTO DIFFERENTIAL Routine 01/22/2025 4:04 AM EDUCATIONAL TECHNOLOGIST COMPLETE BLOOD COUNT (CBC) WITH DIFF Routine 01/22/2025 4:04 AM EDUCATIONAL TECHNOLOGIST BASIC METABOLIC PANEL W/ CALCIUM TOTAL Routine 01/22/2025 4:04 AM EDUCATIONAL TECHNOLOGIST RHYTHM STRIP 01/22/2025 12:00 AM EDUCATIONAL TECHNOLOGIST RHYTHM STRIP 01/22/2025 12:00 AM EDUCATIONAL TECHNOLOGIST RHYTHM STRIP 01/22/2025 12:00 AM EDUCATIONAL TECHNOLOGIST RHYTHM STRIP 01/22/2025 12:00 AM EDUCATIONAL TECHNOLOGIST CBC WITH AUTO DIFFERENTIAL Routine 01/21/2025 4:05 AM EDUCATIONAL TECHNOLOGIST COMPLETE BLOOD COUNT (CBC) WITH DIFF Routine 01/21/2025 4:05 AM EDUCATIONAL TECHNOLOGIST BASIC METABOLIC PANEL W/ CALCIUM TOTAL Routine 01/21/2025 4:05 AM EDUCATIONAL TECHNOLOGIST POCT GLUCOSE Routine 01/21/2025 3:46 AM EDUCATIONAL TECHNOLOGIST RHYTHM STRIP 01/21/2025 12:00 AM CDT RHYTHM STRIP 01/21/2025 12:00 AM CDT RHYTHM STRIP 01/21/2025 12:00 AM CDT RHYTHM STRIP 01/21/2025 12:00 AM CDT CBC WITH AUTO DIFFERENTIAL STAT 01/20/2025 4:12 AM CDT COMPLETE BLOOD COUNT (CBC) WITH DIFF STAT 01/20/2025 4:12 AM CDT BASIC METABOLIC PANEL W/ CALCIUM TOTAL STAT 01/20/2025 4:12 AM CDT RHYTHM STRIP 01/20/2025 12:00 AM CDT RHYTHM STRIP 01/20/2025 12:00 AM CDT TROPONIN I, HIGH SENSITIVITY (HSTRP) Timed 01/19/2025 8:06 PM CDT URINALYSIS REFLEX IF INDICATED BY ABNORMAL RESULTS STAT 01/19/2025 6:59 PM CDT TROPONIN I, HIGH SENSITIVITY (HSTRP) STAT 01/19/2025 4:[address] CHEST W/O CONTRAST Stat with Interpretation 01/19/2025 1:[address] HEAD OR BRAIN WO CONTRAST Stat with Interpretation 01/19/2025 1:55 PM CDT BLOOD GASES, VENOUS W/ O2 SATURATION STAT 01/19/2025 1:05 PM CDT XR CHEST SINGLE VIEW PORTABLE STAT 01/19/2025 1:04 PM CDT CRITICAL CARE Routine 01/19/2025 12:47 PM CDT CBC WITH AUTO DIFFERENTIAL STAT 01/19/2025 12:47 PM CDT MAGNESIUM (MG) STAT 01/19/2025 12:47 PM CDT N-TERMINAL- PRO B TYPE NATRIURETIC PEPTIDE STAT 01/19/2025 12:47 PM CDT TROPONIN I, HIGH SENSITIVITY (HSTRP) STAT 01/19/2025 12:47 PM CDT CMP (COMPREHENSIVE METABOLIC PANEL) STAT 01/19/2025 12:47 PM CDT COMPLETE BLOOD COUNT (CBC) WITH DIFF STAT 01/19/2025 12:47 PM CDT RSV,SARS-COV-2,INF LUENZA A&B BY PCR STAT 01/19/2025 12:47 PM CDT AEROSOL NEBULIZER-INITIAL STAT 01/19/2025 12:46 PM CDT EKG 12 LEAD STAT 01/19/2025 12:41 PM CDT EKG SCAN 01/19/2025 12:00 AM CDT from Last 3 Months Results * RHYTHM STRIP (01/23/2025 12:00 AM EDUCATIONAL TECHNOLOGIST) Only the most recent of12 resultswithin the time period is included. 01/23/2025 us Provider Scan IMG ECG ORDERABLES Final Result RESULTING AGENCY * ADULT TRANS THORACIC ECHO 2D COMPLT W CONT (01/22/2025 11:50 AM EDUCATIONAL TECHNOLOGIST) AV Peak Grad mmHg 4 mmHg RESULTING AGENCY Mean Aortic Valve Gradient (MAVG) 2 mmHg RESULTING AGENCY LV end ghislaine diam cm 5 cm RESULTING AGENCY LV end sys diam cm 3.8 cm RESULTING AGENCY Aortic Root Diam cm 3.7 cm RESULTING AGENCY LA vol index ml/m2 37 ml/m2 RESULTING AGENCY LVOT Peak Jeremie m/sec [id number] m/sec RESULTING AGENCY AV Peak Jeremie m/sec 1 m/sec RESULTING AGENCY MV Mean Grad mmHg 1 mmHg RESULTING AGENCY MVA by PHT cm2 3.24 cm2 RESUL TING AGENCY E/A Ratio 0.68 RESULTING AGENCY E/E' 6.7 RESULTING AGENCY AV Area (VTI) cm2 3.93 cm2 RESULTING AGENCY SEPTUM DIASTOLIC CM 1.3 cm RESULTING AGENCY PW DIASTOLIC CM 1.3 cm RESULTING AGENCY LA VOLUME 68.1 ml RESULTING AGENCY LV EF(estimated)% 58 RESULTING AGENCY Anatomical Region Laterality Modality CARDIO N/A Ultrasound Narrative 01/22/2025 12:38 PM EDUCATIONAL TECHNOLOGIST Transthoracic Echocardiography Report (TTE) Patient name ELENA Quintana Ced 1940 Patient ID (UPI) [id number] Indications: Congestive heart failure, diastolic dysfunction. Study Date01/22/2025 Technical quality: Limited visualization Limitation Reason: Lung artifact Type of Study: TTE procedure: Adult Trans Thoracic Echo 2D Complete, Adult Trans Thoracic Echo 2D Complt W Cont. Priority:RoutineHR: 69 bpmBP: 91/56 mmHg Conclusions Summary The left ventricle is normal in size. Mild to moderate concentric LVH. LV function is normal. There are no regional wall motion abnormalities. LV EF of 55-60%. Grade I diastolic dysfunction. Left atrium is mildly dilated. Aortic root and proximal ascending aorta are borderline dilated. Findings Mitral Valve The mitral valve is normal. No evidence of mitral stenosis. No significant mitral regurgitation. Aortic Valve The aortic valve is trileaflet with normal leaflet excursion. There is no evidence of aortic valve stenosis. Trace AI. Tricuspid Valve The tricuspid valve is normal. There is no evidence of tricuspid stenosis. There is no significant tricuspid regurgitation. Insufficient TR jet to estimate PASP. Pulmonic Valve The pulmonic valve structure appears normal. There is no evidence of pulmonic stenosis. There is no significant pulmonic valve regurgitation. Left Atrium Left atrium is mildly dilated. Left Ventricle The left ventricle is normal in size. Mild to moderate concentric LVH. LV function is normal. There are no regional wall motion abnormalities. LV EF of 55-60%. Grade I diastolic dysfunction. Right Atrium The right atrium size is normal. Right Ventricle Normal right ventricular cavity size and normal systolic function. Pericardial Effusion The pericardium is normal. There is no pericardial effusion visualized. Miscellaneous Aortic root and proximal ascending aorta are borderline dilated. Atrial septum appears intact. IVC is normal in size and respiratory response. Aortic arch appears normal. Valves Mitral Valve Area (PHT): 3.24 cm^2 Area (continuity): 3.56 cm^2 Peak E-Wave: 0.45 m/s Mean Velocity: 0.51 m/s Peak A-Wave: 0.66 m/s Mean Gradient: 1 mmHg Peak Gradient: 0.81 mmHg Deceleration Time: 232 msec P1/2t: 68 msec Tissue Doppler E' Velocity: 0.03 m/s E/E':6.7 E/A Ratio: 0.68 E/Lat E': 6.7 E/Med E':12.9 Aortic Valve Area (continuity): 3.93 cm^2 Mean Velocity: 0.72 m/s Area (VTI):3.93 cm^2 Mean Gradient: 2 mmHg Peak Velocity: . m/s AV VTI: 22.7 cm Peak Gradient: 4 mmHg P1/2t: 784 msec Tricuspid Valve Peak E-Wave: 0.34 m/s Peak Gradient: 0.48 mmHg Pulmonic Valve Peak Velocity: 0.83 m/s Mean Velocity: 0.53 m/s Peak Gradient: 2.77 mmHg Mean Gradient: 1 mmHg LVOT Peak Velocity: 0.96 m/s Mean Velocity: 0.67 m/s Peak Gradient: 4 mmHg Mean Gradient: 2 mmHg LVOT Diameter: 2.2 cm LVOT VTI: 23.5 cm Stroke Volume: 89 ml Stroke Volume Index: 48.9 ml/m^2 Structures Left Ventricle Diastolic Dimension: 5 cm Systolic Dimension: 3.8 cm Septum Diastolic: 1.3 cm Septum Systolic: 1 cm PW Diastolic: 1.3 cm PW Systolic: 1.6 cm Diastolic Length: 33.6 cm Systolic Length: 20.4 cm EF Calculated: 58.25% CI: 3.38 l/min*m^2 CO: 6.16 l/min RWT: 0.52 LV EDV: 114 ml FS: 24 % LV EDV Index: 63 m^2 LV Length: 8.19 cm LV ESV: 47.6 ml LVOT Diameter: 2.2 cm LV ESV Index: 26 m^2 Right Ventricle Tissue Doppler RV S': 8.27 TAPSE: 1.93 cm Left Atrium LA Systolic Pressure: 10.35 mmHg LA Area: 21.1 cm^2 LA Volume: 68.1 ml LA Index: 37ml/m^2 Right Atrium RA Area: 15.3 cm^2 Great Vessels Aorta Ascending Aorta: 3.7 cm Aorta Root:3.7 cm Ascending Aorta Index:2.03 cm/m^2 Contractility Score LV regional wall motion: (0-Not visualized 1-Normal 1'-Hyperkinesis 2-Hypokinesis 3-Akinesis 4-Dyskinesis 5-Aneurysm) Demographics Age 84 Gender Male Race Height 65 in. Weight 165 lbs. BMI (BSA) 27.46 kg/m^2 (1.82 m^2) Asset Manager Miguel Stearns Room ICU-02 Interpreting [place] Referring Physician Cora Physician Procedure Note Cora Vides MD - 01/22/2025 Transthoracic Echocardiography Report (TTE) Patient name ELENA Quintana Ced 1940 Patient ID (UPI) [id number] Indications: Congestive heart failure, diastolic dysfunction. Study Date01/22/2025 Technical quality: Limited visualization Limitation Reason: Lung artifact Type of Study: TTE procedure: Adult Trans Thoracic Echo 2D Complete, Adult Trans Thoracic Echo 2D Complt W Cont. Priority:RoutineHR: 69 bpmBP: 91/56 mmHg Conclusions Summary The left ventricle is normal in size. Mild to moderate concentric LVH. LV function is normal. There are no regional wall motion abnormalities. LV EF of 55-60%. Grade I diastolic dysfunction. Left atrium is mildly dilated. Aortic root and proximal ascending aorta are borderline dilated. Findings Mitral Valve The mitral valve is normal. No evidence of mitral stenosis. No significant mitral regurgitation. Aortic Valve The aortic valve is trileaflet with normal leaflet excursion. There is no evidence of aortic valve stenosis. Trace AI. Tricuspid Valve The tricuspid valve is normal. There is no evidence of tricuspid stenosis. There is no significant tricuspid regurgitation. Insufficient TR jet to estimate PASP. Pulmonic Valve The pulmonic valve structure appears normal. There is no evidence of pulmonic stenosis. There is no significant pulmonic valve regurgitation. Left Atrium Left atrium is mildly dilated. Left Ventricle The left ventricle is normal in size. Mild to moderate concentric LVH. LV function is normal. There are no regional wall motion abnormalities. LV EF of 55-60%. Grade I diastolic dysfunction. Right Atrium The right atrium size is normal. Right Ventricle Normal right ventricular cavity size and normal systolic function. Pericardial Effusion The pericardium is normal. There is no pericardial effusion visualized. Miscellaneous Aortic root and proximal ascending aorta are borderline dilated. Atrial septum appears intact. IVC is normal in size and respiratory response. Aortic arch appears normal. Valves Mitral Valve Area (PHT): 3.24 cm^2 Area (continuity): 3.56 cm^2 Peak E-Wave: 0.45 m/s Mean Velocity: 0.51 m/s Peak A-Wave: 0.66 m/s Mean Gradient: 1 mmHg Peak Gradient: 0.81 mmHg Deceleration Time: 232 msec P1/2t: 68 msec Tissue Doppler E' Velocity: 0.03 m/s E/E':6.7 E/A Ratio: 0.68 E/Lat E': 6.7 E/Med E':12.9 Aortic Valve Area (continuity): 3.93 cm^2 Mean Velocity: 0.72 m/s Area (VTI):3.93 cm^2 Mean Gradient: 2 mmHg Peak Velocity: . m/s AV VTI: 22.7 cm Peak Gradient: 4 mmHg P1/2t: 784 msec Tricuspid Valve Peak E-Wave: 0.34 m/s Peak Gradient: 0.48 mmHg Pulmonic Valve Peak Velocity: 0.83 m/s Mean Velocity: 0.53 m/s Peak Gradient: 2.77 mmHg Mean Gradient: 1 mmHg LVOT Peak Velocity: 0.96 m/s Mean Velocity: 0.67 m/s Peak Gradient: 4 mmHg Mean Gradient: 2 mmHg LVOT Diameter: 2.2 cm LVOT VTI: 23.5 cm Stroke Volume: 89 ml Stroke Volume Index: 48.9 ml/m^2 Structures Left Ventricle Diastolic Dimension: 5 cm Systolic Dimension: 3.8 cm Septum Diastolic: 1.3 cm Septum Systolic: 1 cm PW Diastolic: 1.3 cm PW Systolic: 1.6 cm Diastolic Length: 33.6 cm Systolic Length: 20.4 cm EF Calculated: 58.25% CI: 3.38 l/min*m^2 CO: 6.16 l/min RWT: 0.52 LV EDV: 114 ml FS: 24 % LV EDV Index: 63 m^2 LV Length: 8.19 cm LV ESV: 47.6 ml LVOT Diameter: 2.2 cm LV ESV Index: 26 m^2 Right Ventricle Tissue Doppler RV S': 8.27 TAPSE: 1.93 cm Left Atrium LA Systolic Pressure: 10.35 mmHg LA Area: 21.1 cm^2 LA Volume: 68.1 ml LA Index: 37ml/m^2 Right Atrium RA Area: 15.3 cm^2 Great Vessels Aorta Ascending Aorta: 3.7 cm Aorta Root:3.7 cm Ascending Aorta Index:2.03 cm/m^2 Contractility Score LV regional wall motion: (0-Not visualized 1-Normal 1'-Hyperkinesis 2-Hypokinesis 3-Akinesis 4-Dyskinesis 5-Aneurysm) Demographics Age 84 Gender Male Race Height 65 in. Weight 165 lbs. BMI (BSA) 27.46 kg/m^2 (1.82 m^2) Asset Manager Miguel Stearns Room ICU-02 Interpreting Vides Referring Physician Cora Physician us Pat Steen MD IMG ECHO ORDERABLES Edited Result - Final * (ABNORMAL) CBC with Auto Differential (01/22/2025 4:04 AM EDUCATIONAL TECHNOLOGIST) Only the most recent of4 resultswithin the time period is included. WBC 5.77 4.00 - 12.00 10(3)/mcL 01/22/2025 4:49 AM EDUCATIONAL TECHNOLOGIST [facility] RBC 3.89(L) 4.40 - 5.80 10(6)/mcL 01/22/2025 4:49 AM EDUCATIONAL TECHNOLOGIST [facility] HEMOGLOBIN (HGB) 12.7(L) 13.0 - 16.5 g/dL 01/22/2025 4:49 AM EDUCATIONAL TECHNOLOGIST [facility] HEMATOCRIT (HCT) 38.9 38.0 - 50.0 % 01/22/2025 4:49 AM EDUCATIONAL TECHNOLOGIST [facility] MCV 100.0(H) 82.0 - 96.0 fL 01/22/2025 4:49 AM [facility] MCH 32.6(H) 26.0 - 32.0 pg 01/22/2025 4:49 AM [facility] MCHC 32.6 31.0 - 36.0 g/dL 01/22/2025 4:49 AM [facility] PLATELET COUNT 120(L) 140 - 440 10(3)/mcL 01/22/2025 4:49 AM [facility] RDW 14.4 11.8 - 15.5 % 01/22/2025 4:49 AM [facility] MPV 9.9 8.0 - 12.6 fL 01/22/2025 4:49 AM [facility] NEUTROPHILS 58.6 40.0 - 68.0 % 01/22/2025 4:49 AM [facility] LYMPHOCYTES 28.2 19.0 - 49.0 % 01/22/2025 4:49 AM [facility] MONOCYTES 8.7 3.0 - 13.0 % 01/22/2025 4:49 AM [facility] EOSINOPHILS 4.0 0.0 - 8.0 % 01/22/2025 4:49 AM [facility] BASOPHILS 0.3 0.0 - 1.0 % 01/22/2025 4:49 AM [facility] IMMATURE GRANULOCYTE 0.2 0.0 - 0.4 % 01/22/2025 4:49 AM [facility] ABSOLUTE NEUTROPHILS 3.38 1.40 - 5.30 10(3)/mcL 01/22/2025 4:49 AM [facility] ABSOLUTE LYMPHOCYTES 1.63 0.90 - 3.30 10(3)/mcL 01/22/2025 4:49 AM [facility] ABSOLUTE MONOCYTES 0.50 0.10 - 0.90 10(3)/mcL 01/22/2025 4:49 AM [facility] ABSOLUTE EOSINOPHIL 0.23 0.00 - 0.50 10(3)/mcL 01/22/2025 4:49 AM EDUCATIONAL TECHNOLOGIST [facility] ABSOLUTE BASOPHILS 0.02 0.00 - 0.10 10(3)/mcL 01/22/2025 4:49 AM EDUCATIONAL TECHNOLOGIST [facility] ABSOLUTE IMMATURE GRANULOCYTE 0.01 0.00 - 0.03 10 (3) mcL. 01/22/2025 4:49 AM [facility] NRBC PER 100 WBC 0 01/23/20 4:49 AM [facility] RESULTS ARE CONSISTENT WITH PERIPHERAL SMEAR REVIEW Yes 01/22/2025 4:49 AM [facility] Blood Venipuncture / Unknown 01/22/2025 4:04 AM EDUCATIONAL TECHNOLOGIST 01/22/2025 4:21 AM EDUCATIONAL TECHNOLOGIST us Antonella Kerr INSULATION WORKER, STATE MANAGER HEMATOLOGY ORDERABLES F inal Result [facility] [address] [place] [address] * (ABNORMAL) BMP with Ca, Total (01/22/2025 4:04 AM EDUCATIONAL TECHNOLOGIST) Only the most recent of3 resultswithin the time period is included. SODIUM 142 136 - 145 mmol/L 01/22/2025 4:47 AM [facility] POTASSIUM 4.0 3.5 - 5.1 mmol/L 01/22/2025 4:47 AM [facility] CHLORIDE 102 98 - 107 mmol/L 01/22/2025 4:47 AM [facility] CO2, VENOUS 31(H) 22 - 30 mmol/L 01/22/2025 4:47 AM [facility] ANION GAP 13.0 <18.0 mmol/L 01/22/2025 4:47 AM [facility] GLUCOSE 82 70 - 99 mg/dL 01/22/2025 4:47 AM [facility] BUN 20 8 - 26 mg/dL 01/22/2025 4:47 AM EDUCATIONAL TECHNOLOGIST [facility] CREATININE, BLOOD 1.20 0.70 - 1.30 mg/dL 01/22/2025 4:47 AM EDUCATIONAL TECHNOLOGIST [facility] BUN/CREATININE RATIO 17 12 - 20 ratio 01/22/2025 4:47 AM [facility] CALCIUM 8.9 8.7 - 10.5 mg/dL 01/22/2025 4:47 AM EDUCATIONAL TECHNOLOGIST [facility] GFR, ESTIMATED 60 >=60 01/22/2025 4:47 AM EDUCATIONAL TECHNOLOGIST [facility] Comment: Creatinine Clearance is the preferred criteria for selecting drug dose adjustments in renally impaired patients. The GFR is provided as additional pertinent clinical information. GFR is reported in mL/min/1.73 sq m. Calculation based on the 2020 Chronic Kidney Disease Epidemiology Collaboration (CKD-EPI) equation refit without adjustment for race. GFR, EST. >60 >=60 025 4:47 AM EDUCATIONAL TECHNOLOGIST [facility] Comment: Creatinine Clearance is the preferred criteria for selecting drug dose adjustments in renally impaired patients. The GFR is provided as additional pertinent clinical information. GFR is reported in mL/min/1.73 sq m. Calculation based on the 2009 Chronic Kidney Disease Epidemiology Collaboration (CKD-EPI). GFR, EST. NONAFRICAN 58(L) >=60 01/22/2025 4:47 AM [facility] Comment: Creatinine Clearance is the preferred criteria for selecting drug dose adjustments in renally impaired patients. The GFR is provided as additional pertinent clinical information. GFR is reported in mL/min/1.73 sq m. Calculation based on the 2009 Chronic Kidney Disease Epidemiology Collaboration (CKD-EPI). Blood Venipuncture / Unknown 01/22/2025 4:04 AM EDUCATIONAL TECHNOLOGIST 01/22/2025 4:21 AM EDUCATIONAL TECHNOLOGIST us Antonella Kerr INSULATION WORKER, STATE MANAGER CHEMISTRY ORDERABLES Fi nal Result [facility] [address] [place] [address] * POCT Glucose (01/21/2025 3:46 AM EDUCATIONAL TECHNOLOGIST) [facility] GLUCOSE,BEDSIDE POCT 96 70 - 99 mg/dL 01/21/2025 3:47 AM EDUCATIONAL TECHNOLOGIST [facility] Blood 01/21/2025 3:46 AM EDUCATIONAL TECHNOLOGIST 01/21/2025 3:47 AM EDUCATIONAL TECHNOLOGIST None Provider POINT OF CARE TESTING Final Resu lt Performing Organization Address City/[facility]/ZIP Co de Phone Number [facility] [address] [place] [address] * TROPONIN I, HIGH SENSITIVITY (HSTRP) (01/19/2025 8:06 PM CDT) Only the most recent of3 resultswithin the time period is included. [facility] TROPONIN I, HIGH SENSITIVITY- HURT 32.0 <=35.0 ng/L 01/19/2025 8:38 PM CDT [facility] Comment: High-sensitivity troponin I results are reported in ng/L making the result appear to be 1,000 times higher than the contemporary troponin I value which is reported in ng/ml. Results from [facility]. Blood Venipuncture / Unknown 01/19/2025 8:06 PM CDT 01/19/2025 8:12 PM CDT us Camden James MD CHEMISTRY ORDERABLES Valerie l Result [facility] [address] [place] [address] * (ABNORMAL) Urinalysis w/ Reflex (01/19/2025 6:59 PM CDT) [facility] SPECIFIC GRAVITY 1.010 1.003 - 1.030 01/19/2025 8:17 PM CDT [facility] URINE PH 7.0 5.0 - 9.0 01/19/2025 8:17 PM CDT [facility] WBC ESTERASE Negative Negative 01/19/2025 8:17 PM CDT [facility] NITRITE Negative Negative 01/19/2025 8:17 PM CDT [facility] PROTEIN, RANDOM URINE 15 mg/dL(A) Negative 01/19/2025 8:17 PM CDT [facility] URINE GLUCOSE, QUAL Negative Negative 01/19/2025 8:17 PM CDT [facility] URINE KETONES Negative Negative 01/19/2025 8:17 PM CDT [facility] UROBILINOGEN Normal Normal mg/dL 01/19/2025 8:17 PM CDT [facility] URINE BLOOD Negative Negative magdalena/ul 01/19/2025 8:17 PM CDT [facility] URINALYSIS COLOR Yellow 01/20/20 8:17 PM CDT [facility] URINALYSIS CLARITY Clear 01/19/2025 8:17 PM CDT [facility] Urine URINE SPECIMEN / Unknown Non-Phlebotomy Collection / Unknown 01/19/2025 6:59 PM CDT 01/19/2025 8:12 PM CDT us Camden James MD URINE ORDERABLES Final Re sult [facility] [place] [address] * CT CHEST W/O CONTRAST (01/19/2025 1:55 PM CDT) Anatomical Region Laterality Modality Chest N/A Computed Tomogra phy 01/19/2025 1:55 PM CDT Impressions 01/19/2025 3:30 PM CDT IMPRESSION: 1. Pulmonary findings can be seen with an infectious/inflammatory process and/or interstitial lung disease. 2. Mediastinal lymphadenopathy is nonspecific but may be reactive. Narrative 01/19/2025 3:[address] CHEST W/O CONTRAST : 01/19/2025 1:55 PM DICTATING PHYSICIAN: NATE IGNACIO [facility]. HISTORY: As below. ADDITIONAL TECHNOLOGIST HISTORY: Respiratory illness, nondiagnostic x-ray, SOB and low O2 sat today. Hx asthma, ILD and non smoker. TECHNIQUE: Multiple helical axial images were obtained through the chest without contrast. Coronal reformats were performed. Image acquisition performed utilizing automated exposure control (AEC) and iterative reconstruction software in order to lower patient dose. RADIATION DOSE: DLP 482.97 mGycm. COMPARISON: None. FINDINGS: Study degraded due to streak artifact from the patient's arms being down side. Heart and great vessels: Cardiomegaly. Sternotomy with coronary artery bypass graft postoperative changes. Atherosclerotic vascular calcifications. The main pulmonary artery is enlarged measuring 3.6 cm which can be seen with pulmonary hypertension. Pericardium: No fluid or thickening. Lymph nodes: Enlarged mediastinal lymph nodes Esophagus: Distal esophageal wall thickening can be seen with esophagitis. Pleura: No pleural effusion or pneumothorax. Lung parenchyma: Diffuse bronchiectasis. There are scattered groundglass opacities and interstitial opacities along with interstitial thickening and scarring. Osseous structures and soft tissues: No acute traumatic finding. Age-appropriate degenerative changes seen. Cephalad abdomen: Gallbladder is distended. Too small to characterize hypodense hepatic lesion. Procedure Note Nate Ignacio MD - 01/19/2025 CT CHEST W/O CONTRAST : 01/19/2025 1:55 PM DICTATING PHYSICIAN: NATE IGNACIO [facility]. HISTORY: As below. ADDITIONAL TECHNOLOGIST HISTORY: Respiratory illness, nondiagnostic x-ray,SOB and low O2 sat today. Hx asthma, ILD and non smoker. TECHNIQUE: Multiple helical axial images were obtained through the chest withoutcontrast. Coronal reformats were performed. Image acquisition performedutilizing automated exposure control (AEC) and iterative reconstructionsoftware in order to lower patient dose. RADIATION DOSE: DLP 482.97 mGycm. COMPARISON: None. FINDINGS: Study degraded due to streak artifact from the patient's arms being downside. Heart and great vessels: Cardiomegaly. Sternotomy with coronary arterybypass graft postoperative changes. Atherosclerotic vascularcalcifications. The main pulmonary artery is enlarged measuring 3.6 cmwhich can be seen with pulmonary hypertension. Pericardium: No fluid or thickening. Lymph nodes: Enlarged mediastinal lymph nodes Esophagus: Distal esophageal wall thickening can be seen withesophagitis. Pleura: No pleural effusion or pneumothorax. Lung parenchyma: Diffuse bronchiectasis. There are scattered groundglassopacities and interstitial opacities along with interstitial thickeningand scarring. Osseous structures and soft tissues: No acute traumatic finding.Age-appropriate degenerative changes seen. Cephalad abdomen: Gallbladder is distended. Too small to characterizehypodense hepatic lesion. IMPRESSION: 1. Pulmonary findings can be seen with an infectious/inflammatory processand/or interstitial lung disease. 2. Mediastinal lymphadenopathy is nonspecific but may be reactive. us Camden James MD IMG CT ORDERABLES Final R esult * CT HEAD OR BRAIN WO CONTRAST (01/19/2025 1:55 PM CDT) Anatomical Region Laterality Modality Head N/A Computed Tomogra phy 01/19/2025 1:55 PM CDT Impressions 01/19/2025 2:31 PM CDT IMPRESSION: 1. No evidence of an acute intracranial abnormality. 2. Moderate atrophy and ischemic small vessel disease. Narrative 01/19/2025 2:31 PM CDT EXAM: CT HEAD OR BRAIN WO CONTRAST 01/19/2025 1:55 PM HISTORY: Change in mental status. TECHNIQUE: Noncontrast axial images of the head were performed with sagittal and coronal reformations. Dose reduction techniques were utilized. DLP = Radiation dose reduction techniques were employed. CTDIvol: 59.4 mGy. DLP: 1259 mGy-cm. COMPARISON:None FINDINGS:There is moderate generalized atrophy. The ventricles are midline and normal in size for the degree of atrophy. There is patchy and multifocal low density present in the subcortical and periventricular white matter of both hemispheres, consistent with moderate ischemic small vessel disease. There is no edema, hemorrhage, or mass effect. There are no extra-axial blood or fluid collections. The skull base cisterns are normal in appearance and the inferior cerebellar tonsils are normally positioned. Atherosclerotic vascular calcifications are noted. Mastoid air cells and paranasal sinuses are clear with minimal mucosal thickening. Degenerative changes at the C1-C2 level are noted, including subchondral erosions and calcification of ligaments posterior to the odontoid, commonly due to calcium pyrophosphate deposition. There is relatively mild stenosis in the region. Procedure Note Barry Catherine MD - 01/19/2025 EXAM: CT HEAD OR BRAIN WO CONTRAST 01/19/2025 1:55 PM HISTORY: Change in mental status. TECHNIQUE: Noncontrast axial images of the head were performed withsagittal and coronal reformations. Dose reduction techniques wereutilized. DLP = Radiation dose reduction techniques were employed.CTDIvol: 59.4 mGy. DLP: 1259 mGy-cm. COMPARISON:None FINDINGS:There is moderate generalized atrophy. The ventricles are midlineand normal in size for the degree of atrophy. There is patchy andmultifocal low density present in the subcortical and periventricularwhite matter of both hemispheres, consistent with moderate ischemic smallvessel disease. There is no edema, hemorrhage, or mass effect. There areno extra-axial blood or fluid collections. The skull base cisterns arenormal in appearance and the inferior cerebellar tonsils are normallypositioned. Atherosclerotic vascular calcifications are noted. Mastoid aircells and paranasal sinuses are clear with minimal mucosal thickening.Degenerative changes at the C1-C2 level are noted, including subchondralerosions and calcification of ligaments posterior to the odontoid,commonly due to calcium pyrophosphate deposition. There is relatively mildstenosis in the region. IMPRESSION: 1. No evidence of an acute intracranial abnormality. 2. Moderate atrophy and ischemic small vessel disease. us Camden James MD [facility] [place] ORDERABLES Final R esult * (ABNORMAL) Blood Gases, Venous w/ O2 Saturation (01/19/2025 1:05 PM CDT) O2 STATUS 2L 01/19/2025 1:09 PM CDT [facility] Comment:Post EMS nebulizer PH VENOUS 7.38 7.34 - 7.43 01/19/2025 1:09 PM CDT [facility] PCO2 (VENOUS) 46 41 - 51 mmHg 01/19/2025 1:09 PM CDT [facility] PO2 VENOUS 44 30 - 50 mmHg 01/19/2025 1:09 PM CDT [facility] O2 SAT DAWIT, MEASURED 65 60 - 85 % 12/22 1:09 PM CDT [facility] BICARBONATE 27.6(H) 22.0 - 26.0 mmol/L 01/19/2025 1:09 PM CDT [facility] BASE VENOUS 2.6 -2.0 - 3.0 mmol/L 01/19/2025 1:09 PM CDT [facility] CARBOXYHEMOGLOBIN 3.3 0.0 - 5.0 % 01/19/2025 1:09 PM CDT [facility] METHEMOGLOBIN 0.3 0.0 - 1.5 % 01/19/2025 1:09 PM CDT [facility] DAWIT Blood Gas VENOUS STRUCTURE / Unknown Venipuncture / Unknown 01/19/2025 1:05 PM CDT 01/19/2025 1:06 PM CDT Narrative [facility] - 01/19/2025 1:09 PM CDT Interpretation - The usual approach to interpreting a VBG consists of using the venous measurements to estimate the corresponding arterial values, then using these estimated values for clinical decision-making exactly as if an ABG had been performed. The difference between the venous measurements and the arterial measurements depends upon the site of venous sampling and varies among laboratories. Correlation with arterial blood gases - Although arterial blood gas analysis is more accurate than venous analysis for the assessment of oxygenation, measurement of PCO2, pH, and HCO3 are similar with some minor adjustments: The central venous pH is usually 0.03 to 0.05 pH units lower than the arterial pH and the PCO2 is usually 4 to 5 mmHg higher, with little or no increase in HCO3. Mixed venous blood (ie, SvO2 drawn from a pulmonary artery catheter) gives results similar to central venous blood (ie, ScvO2 drawn from a central venous catheter). The peripheral venous pH is approximately 0.02 to 0.04 pH units lower than the arterial pH, the venous serum HCO3 concentration is approximately 1 to 2 meq/L higher, and the venous PCO2 is approximately 3 to 8 mmHg higher. There are no venous to arterial conversions for ScvO2, SvO2, or peripheral venous oxyhemoglobin saturation (PvO2). Importantly, sufficient variability between arterial and venous blood gas values may exist such that periodic correlation between arterial and venous blood gas values is always prudent. us Camden James MD CHEMISTRY ORDERABLES Valerie rios Result [facility] [place] [address] * XR CHEST SINGLE VIEW PORTABLE (01/19/2025 1:04 PM CDT) Anatomical Region Laterality Modality Chest N/A Digital Radiogra phy 01/19/2025 1:04 PM CDT Impressions 01/20/2025 1:18 PM CDT IMPRESSION: 1. Background changes of pulmonary fibrosis. Superimposed infection is possible. Narrative 01/20/2025 1:18 PM CDT DICTATING PHYSICIAN: Natalee Richards M.D., [facility] EXAM: XR CHEST SINGLE VIEW PORTABLE 01/19/2025 1:04 PM HISTORY: Shortness of breath and confusion. History of COPD. COMPARISON: Follow-up chest CT performed at the time of dictation. TECHNIQUE: AP radiograph of the chest. FINDINGS: Lines/tubes/devices: None. Cardiomediastinal silhouette: Within normal limits for technique. Postsurgical changes of CABG. Lungs: Low lung volumes. Patchy bilateral airspace opacities. Pleura: No large pleural effusion. No pneumothorax. Osseous structures/soft tissues: Median sternotomy. Upper abdomen: Unremarkable. Procedure Note Natalee Richards MD - 01/20/2025 DICTATING PHYSICIAN: Natalee Richards M.D., [facility] EXAM: XR CHEST SINGLE VIEW PORTABLE 01/19/2025 1:04 PM HISTORY: Shortness of breath and confusion. History of COPD. COMPARISON: Follow-up chest CT performed at the time of dictation. TECHNIQUE: AP radiograph of the chest. FINDINGS: Lines/tubes/devices: None. Cardiomediastinal silhouette: Within normal limits for technique.Postsurgical changes of CABG. Lungs: Low lung volumes. Patchy bilateral airspace opacities. Pleura: No large pleural effusion. No pneumothorax. Osseous structures/soft tissues: Median sternotomy. Upper abdomen: Unremarkable. IMPRESSION: 1. Background changes of pulmonary fibrosis. Superimposed infection ispossible. Camden James MD IMG DIAGNOSTIC ORDERABLES Final Result * Critical Care (01/19/2025 12:47 PM CDT) Narrative Camden James MD - 01/19/2025 12:47 PM CDT Camden James MD 01/19/2025 4:12 PM Critical Care Performed by: Camden James MD Authorized by: Camden James MD Critical care provider statement: Critical care time (minutes): 45 Critical care time was exclusive of: Separately billable procedures and treating other patients Critical care was necessary to treat or prevent imminent or life-threatening deterioration of the following conditions: Respiratory failure Critical care was time spent personally by me on the following activities: Blood draw for specimens, development of treatment plan with patient or surrogate, discussions with consultants, discussions with primary provider, evaluation of patient's response to treatment, examination of patient, review of old charts, ordering and review of radiographic studies, ordering and review of laboratory studies, ordering and performing treatments and interventions, re-evaluation of patient's condition, pulse oximetry and obtaining history from patient or surrogate Care discussed with: admitting provider Camden James MD PROCEDURE/MINOR SURGICAL ORDERABLES Final Result * (ABNORMAL) NT-proBNP (01/19/2025 12:47 PM CDT) NT PROBNP 3,851.3(H) <450.0 pg/mL 01/19/2025 1:35 PM CDT [facility] Comment: AGE pg/mL INTERPRETATION All <300 Negative: HF (Heart Failure) unlikely 18 to <50 >=300.0 to <450.0 Indeterminate. Consider other causes of NT-proBNP elevation 50 to 75 >=300.0 to <900.0 Indeterminate. Consider other causes of NT-proBNP elevation >75 >=300.0 to <1800.0 Indeterminate. Consider other causes of NT-proBNP elevation 18 to <50 >=450.0 Positive: HF likely 50 to 75 >=900.0 Positive: HF likely >75 >=1800.0 Positive: HF likely Total protein levels at or above 12.6 mg/dl may falsely decrease NT-proBNP values. Blood Venipuncture / Unknown 01/19/2025 12:47 PM CDT 01/19/2025 1:09 PM CDT Camden James MD CHEMISTRY ORDERABLES Valerie l Result Performing Organization Address City/[facility]/ZIP Co de Phone Number [facility] [place] [address] * RSV,SARS-COV-2,INFLUENZA A&B BY PCR (01/19/2025 12:47 PM CDT) FLU A Negative Negative, Error 01/19/2025 1:51 PM CDT [facility] FLU B Negative Negative 01/19/2025 1:51 PM CDT [facility] RESP SYNC VIRUS Negative Negative 1:51 PM CDT [facility] SARSCOV2 NOT DETECTED (Reference Range for this test is Not Detected) 01/19/2025 1:51 PM CDT [facility] Comment:This test was perfor med by a Reverse Donor Specialist PCR Method. Nasal NASOPHARYNGEAL SWAB / Unknown Non-Phlebotomy Collection / Unknown 01/19/2025 12:47 PM CDT 01/19/2025 1:09 PM CDT Camden James MD MICROBIOLOGY - GENERAL OR DERABLES Final Result Performing Organization Address City/[facility]/ZIP Co de Phone Number [facility] [place] [address] * Magnesium (01/19/2025 12:47 PM CDT) MAGNESIUM 2.0 1.6 - 2.6 mg/dL 01/19/2025 1:31 PM CDT [facility] Blood Venipuncture / Unknown 01/19/2025 12:47 PM CDT 01/19/2025 1:09 PM CDT us Camden James MD CHEMISTRY ORDERABLES Valerie blanca Result [facility] [place] [address] * (ABNORMAL) CMP (Comprehensive Metabolic Panel) (01/19/2025 12:47 PM CDT) SODIUM 142 136 - 145 mmol/L 01/19/2025 1:31 PM CDT [facility] POTASSIUM 4.0 3.5 - 5.1 mmol/L 01/19/2025 1:31 PM CDT [facility] CHLORIDE 106 98 - 107 mmol/L 01/19/2025 1:31 PM CDT [facility] CO2, VENOUS 26 22 - 30 mmol/L 01/19/2025 1:31 PM CDT [facility] ANION GAP 14.0 <18.0 mmol/L 01/19/2025 1:31 PM CDT [facility] GLUCOSE 109(H) 70 - 99 mg/dL 01/19/2025 1:31 PM CDT [facility] BUN 15 8 - 26 mg/dL 01/19/2025 1:31 PM CDT [facility] CREATININE, BLOOD 1.30 0.70 - 1.30 mg/dL 01/19/2025 1:31 PM CDT [facility] BUN/CREATININE RATIO 12 12 - 20 ratio 01/19/2025 1:31 PM CDT [facility] TOTAL PROTEIN 6.5 6.0 - 8.0 g/dL 01/19/2025 1:31 PM CDT [facility] ALBUMIN 3.6 3.5 - 5.0 g/dL 01/19/2025 1:31 PM CDT [facility] A/G RATIO 1.2 1.0 - 2.2 01/19/2025 1:31 PM CDT [facility] CALCIUM 9.4 8.7 - 10.5 mg/dL 01/19/2025 1:31 PM CDT [facility] T BILI 1.6(H) 0.2 - 1.2 mg/dL 01/19/2025 1:31 PM CDT [facility] SGOT (AST) 31 <43 U/L 01/19/2025 1:31 PM CDT [facility] SGPT (ALT) 21 <56 U/L 01/19/2025 1:31 PM CDT [facility] ALKALINE PHOSPHATASE 102 40 - 150 U/L 01/19/2025 1:31 PM CDT [facility] GFR, ESTIMATED 55(L) >=60 01/19/2025 1:31 PM CDT [facility] Comment: Creatinine Clearance is the preferred criteria for selecting drug dose adjustments in renally impaired patients. The GFR is provided as additional pertinent clinical information. GFR is reported in mL/min/1.73 sq m. Calculation based on the 2020 Chronic Kidney Disease Epidemiology Collaboration (CKD-EPI) equation refit without adjustment for race. GFR, EST. >60 >=60 1:31 PM CDT [facility] Comment: Creatinine Clearance is the preferred criteria for selecting drug dose adjustments in renally impaired patients. The GFR is provided as additional pertinent clinical information. GFR is reported in mL/min/1.73 sq m. Calculation based on the 2009 Chronic Kidney Disease Epidemiology Collaboration (CKD-EPI). GFR, EST. NONAFRICAN 53(L) >=60 01/19/2025 1:31 PM CDT [facility] Comment: Creatinine Clearance is the preferred criteria for selecting drug dose adjustments in renally impaired patients. The GFR is provided as additional pertinent clinical information. GFR is reported in mL/min/1.73 sq m. Calculation based on the 2009 Chronic Kidney Disease Epidemiology Collaboration (CKD-EPI). Blood Venipuncture / Unknown 01/19/2025 12:47 PM CDT 01/19/2025 1:09 PM CDT us Camden James MD CHEMISTRY ORDERABLES Valerie l Result Performing Organization Address City/[facility]/ZIP Co de Phone Number [facility] [place] [address] * EKG 12 LEAD (01/19/2025 12:41 PM CDT) Ventricular Rate 78 BPM EXTERNAL EKG Atrial Rate 78 BPM EXTERNAL EKG P-R Interval 264 ms EXTERNAL EKG QRS Duration 138 ms EXTERNAL EKG Q-T Duration 444 ms EXTERNAL EKG QTC CALCULATION 506 ms EXTERNAL EKG P [place] 15 degrees EXTERNAL EKG R [place] 254 degrees EXTERNAL EKG T [place] 46 degrees EXTERNAL EKG 01/19/2025 12:4 1 PM CDT Impressions EXTERNAL EKG - 01/20/2025 4:32 PM CDT Sinus rhythm with 1st degree AV block with premature atrial complexes Right superior axis deviation Nonspecific intraventricular block T wave abnormality, consider anterior ischemia Abnormal ECG No previous ECGs available Confirmed by Pamela Buckner ([id number]) on 01/20/2025 4:32:15 PM Narrative Procedure Note Pamela Buckner MD - 01/20/2025 IMPRESSION: Sinus rhythm with 1st degree AV block with premature atrial complexes Right superior axis deviation Nonspecific intraventricular block T wave abnormality, consider anterior ischemia Abnormal ECG No previous ECGs available Confirmed by Pamela Buckner ([id number]) on 01/20/2025 4:32:15 PM us Camden James MD IMG ECG ORDERABLES Final Result EXTERNAL EKG * EKG SCAN (01/19/2025 12:00 AM CDT) 01/19/2025 us Provider Scan IMG ECG ORDERABLES Final Result RESULTING AGENCY from Last 3 Months Insurance MEDICARE [facility] Advance Directives Documents on File Type Date Recorded Patient Director Style Expl anation Power of Exhaust Equipment Operator for Health Care 01/22/2025 5:00 AM POA-HC, 01/19/2025 Power of Exhaust Equipment Operator for Health Care 01/22/2025 4:55 AM POA-HC, 03/10/2022 * Full Code (Latest Code Status on File) Date Activated Date Inactivated Comments 01/19/2025 4:06 PM CPR-Full Shari tment: FULL ARREST: Attempt Resuscitation/CPR wit intubation and mechanical ventilation. PRE-ARREST: Use entire range of life support measures to stabilize the patient. Care Teams Casting Agent Relationship Specialty Start Date End Date Solo Salazar MD [address] [place] [address] PCP - General Family Medicine 01/19/25
--- OUTSIDE RECORDS SUMMARY | 2025-02-28 19:58 | XMS_ITS | Continuity of Care Document ---
Author Organization [facility], PAC Jette Address [address] [place] [address] Care Team Providers Care Curtain Mender Name Role Phone [facility] FAX OTHER MARTI YARBROUGH Primary Care Provider [phone] Assessment Encounter Date Assessment Date Assessment LastModified by Organization Details LastModified Time 02/04/2025 02/04/2025 schedule lasix routinely for now, decrease metoprolol to 25 mg daily, labs in am, CXR today, add compression hose for edema/leg elevation, can use standing orders for guaifenesin for cough, check flu and covid swabs, resident to sleep in bed at night mvandorn Not available 02/06/2025 06:09:19 Plan of Treatment Reminders Order Date Submit Date Provider Last Modified By Organization Details Last Modified Time Details Appointments None record ed. Lab None record ed. Referral None record ed. Procedures None record ed. Surgeries None record ed. Imaging None record ed. Medication Orders None record ed. Patient TargetsNo targets recorded. Patient InstructionsNo instructions recorded. Reason for Referral None Reported. Results Created Date Observation Date Name Description Value Unit Range Abnormal Flag Note LastModifiedBy Organization Detail LastModifiedTime 02/05/2002/04/2025 XR, chest , 2 view No observ ation record ed. [facility] [address] [place], [place], [address], 02/06/2025 09:30:57 Result Notes None recorded. Procedures Surgical History Date Name Laterality Status Provider Name and Address Organization Details Recorded Time appendectomy completed Kenneth HENDRICKS [facility] 01/24/2025 09:26:32 coronary artery bypass graft completed Kenneth Juárez [facility] 01/24/2025 09:26:42 [facility] 01/24/2025 09:27:20 elbow joint operations completed Kenneth Juárez [facility] 01/24/2025 09:27:28 Imaging Results None recorded. Procedure Notes None recorded. Medical Equipment None Reported. Allergies Allergen ID Allergen Name Allergen Category Reaction Reaction Severity Criticality Documentation Date Start Date Code Code System Note Provider Name and Address Organization Details Recorded Time 84083 codeine medicatio n Not available Not available Not available 01/24/2025 2670 [facility] 75836 Product containin g penicilli n (product) medicatio n Not available Not available Not available 01/24/2025 38970 8001 [facility]ED [facility] Medications Name Sig Start Date Stop [...] and Address Organization Details Last Updated DateTime 62 /min 98.3 [degF] 18 /min 98 % 2 L/min 13058.5 8 g 28.4 kg/m2 165.1 cm 101/52 mm[Hg] [place] [address] [place], [address] , [facility] 05:46:40 Date Recorded Body height Body mass index (BMI) Body weight Oxygen saturation Inhaled oxygen flow rate Respiratory rate Body temperature Heart rate Systolic And Diastolic Provider Name and Address Organization Details Last Updated DateTime 165.1 cm 27.9 kg/m2 14944.3 6 g 100 % 3 L/min 16 /min 98.2 [degF] 69 /min 129/63 mm[Hg] [place] [address] [place], [address] , [facility] 17:42:57 Social History Question Answer Notes LastModified by Handup Details LastModified Time Tobacco Smoking Status Never Smoker Kenneth Juárez [facility] 01/24/2025 09:28:08 What Is Your Code Status? DNR [email or web address] Information not available 01/24/2025 Sex: Unknown Functional Status Question Answer Note LastModified by Handup Details LastModified Time Do you use any illicit or recreational drugs? No Information not available 01/24/2025 What is your level of alcohol consumption? None Information not available 01/24/2025 Mental Status None recorded. Family History Nothing Reported. Medical History Condition Response Coronary Artery Disease (CAD) Y Vitamin B12 Deficiency Y Congestive Heart Failure (CHF) Y Sleep Apnea / KATINA Y Hypertension Y Asthma Y Benign Prostatic Hyperplasia (BPH) Y Past Encounters Encounter ID Performer Location Encounter Start Date Encounter Closed Date Diagnosis/Indication Diagnosis SNOMED-CT Code Diagnosis ICD10 Code Diagnosis IMO Codes Diagnosis Note [id number] Bettina DO Farrah [place] [address] [place] [address] 01/24/2025 21:35:55 01/31/2025 08:10:01 Interstitial lung disease 987733462 J84.9 [id number] see above..... 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 933480333 I25.810 66132499 currently no chest pains/p CABG and PCIcontinu e plavix, betablocke r and statin therapyout patient f/u with cardiology as scheduled Benign pro static hyperplasia 818478889 N40.0 37207812 currently no urinary symptoms - he has not been discharged on any meds related to thiswill request home medication list to confirm no usual medication smonitor clinically Hypertensi ve heart disease with congestive heart failure 1972435 I11.0 I50.32 27731260 continue diuretics, betablocke rmonitor blood pressures and adjust meds as clinically indicated Obstructiv e sleep apnea syndrome 22305911 G47.33 065453 continue nighttime cpap with O2 bleed Cobalamin deficiency 190 983546 E53.8 94815 continue replacemen t therapy Acute-on-c hronic respiratory failure 91077928 J96.21 51764180 related to ILD and CHFimprove d with IV diuretics and an increase in his supplement al O2 up to 6 liters/min [place] during his hospitaliz ation now back to usual baseline of 2 liters/min utedoes not appear he was treated with antibiotic s or steroids Hypothyroidism 40277057 E03.9 80120481 presumed stable - continue synthroidm ight consider checking thyroid studies during his stay if they were not checked during recent hospitaliz ation Impaired cognition 77471 6002 R41.89 571885 no diagnosis of dementia - head imaging c/w thismonito r for reversible causeswill have speech therapy follow while here Major depr essive disorder 181391157 F32.9 1197500401 continue sertraline Physical deconditioning 0764717574 9102 R53.81 009160 related to advanced age, recent hospitaliz ation, comorbidit iestherapi es have been initiated - he plans to return home alone upon d/c from [facility] [id number] Bettina Yan, DO [facility] [address] [place] [address] 01/25/2025 11:01:02 01/31/2025 08:08:43 Erumd-ji-ujzrqux respiratory failure 20838887 J96.21 47485496 Sec to ILD and CHF. Improved with IV diuretics and an increase in his supplement al O2 up to 6 liters/min [place] during his hospitaliz ation. Now back to usual baseline of 2 liters/min k[place]ath. Does not appear he was treated with antibiotic s or steroids.C ontinue therapies and oxygen supplement ation.RT to follow.[facility] andrea if he follows with pulmonary as an outpatient . Interstiti al lung disease 787012087 J84.9 499247 SEE ABOVE... 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 Currently no chest pain.Jane nue Plavix, Metoprolol , and statin.F/U with cards as above. Benign pro static hyperplasia 848451084 N40.0 20111079 Currently no urinary symptoms. He was not discharged on any meds related to this.Reque sted home medication list to confirm no daily medication s.Monitor clinically . Hypertensi ve heart disease with congestive heart failure 2391020 I11.0 I50.31 79785952 Improved with diuresis.C ontinue Jardiance (new), Metoprolol , Spironolac tone, and PRN Lasix.Cont inue supplement oxygen as above.Cont inue to trend blood pressures, monitor lytes and renal function, and adjust meds as clinically indicated. F/U with cards on 02/01. Obstructiv e sleep apnea syndrome 69821766 G47.33 575815 Stable. Continue nighttime cpap with O2 bleed. Cobalamin deficiency 190 079659 E53.8 53936 Presumed stable. Continue supplement . Hypothyroidism 55609853 E03.9 06529507 Presumed stable. Continue SynthroidM ight consider checking thyroid studies during his stay if they were not checked during recent hospitaliz ation. Impaired cognition 94872 6002 R41.89 214219 No former diagnosis of dementia. Head imaging noted moderate atrophy and ischemic small vessel disease.M onitor for reversible causes.ST is following. Major depr essive disorder 769093568 F32.9 6177737931 Stable. Continue Sertraline . Monitor moods. Physical deconditioning 3513136799 9102 R53.81 325525 Related to advanced age, recent hospitaliz ation, comorbidit ies.Contin ue therapies. He plans to return home alone upon d/c from SN[facility]. [id number] Bettina Yan DO [address] [address] 01/30/2025 09:58:45 01/31/2025 08:09:21 Ujlju-fb-uquohop respiratory failure 16307145 J96.21 10763606 Sec to ILD and CHF. Improved with IV diuretics and an increase in his supplement al O2 up to 6 liters/min k[place] during his hospitaliz ation. Now back to usual baseline of 2 liters/min klamath. Does not appear he was treated with antibiotic s or steroids.C ontinue therapies and oxygen supplement ation.RT to follow.[facility] andrea if he follows with pulmonary as an outpatient . Hypertensi ve heart disease with congestive heart failure 6562171 I11.0 I50.31 84219664 Improved with diuresis.C ontinue Jardiance (new), Metoprolol , Spironolac tone, and PRN Lasix.Cont inue supplement oxygen as above.Cont inue to trend blood pressures, monitor lytes and renal function, and adjust meds as clinically indicated. F/U with cards on 02/01. 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 Currently no chest pain.Jane nue Plavix, Metoprolol , and statin.F/U with cards as above. Interstiti al lung disease 271919930 J84.9 178701 SEE ABOVE... Benign pro static hyperplasia 965838325 N40.0 88306172 Currently no urinary symptoms. He was not discharged on any meds related to this.Reque sted home medication list to confirm no daily medication s.Monitor clinically . Hypothyroidism 06186434 E03.9 47134611 Presumed stable. Continue SynthroidC hecking thyroid panel in AM. Cobalamin deficiency 190 733466 E53.8 62053 Presumed stable. Continue supplement . Obstructiv e sleep apnea syndrome 78543563 G47.33 685800 Stable. Continue nighttime cpap with O2 bleed. Impaired cognition 42671 6002 R41.89 369381 No former diagnosis of dementia. Head imaging noted moderate atrophy and ischemic small vessel disease.M onitor for reversible causes.ST is following. Appears more confused than he has previously -- checking UA and labs in AM. Major depr essive disorder 565266105 F32.9 6949704098 Stable. Continue Sertraline . Monitor moods. Physical deconditioning 6142005115 9102 R53.81 884740 Related to advanced age, recent hospitaliz ation, comorbidit ies.Contin ue therapies. He plans to return home alone upon d/c from [facility]. [id number] Bettina Yan, [address] [address] 02/01/2025 12:27:22 02/06/2025 10:25:29 Veles-eq-yxrsapk respiratory failure 78054404 J96.21 04743344 Sec to ILD and CHF. Improved with IV diuretics and an increase in his supplement al O2 up to 6 liters/min [place] during his hospitaliz ation. Now back to usual baseline of 2 liters/min k[place]ath. Does not appear he was treated with antibiotic s or steroids.C ontinue therapies and oxygen supplement ation.RT to follow.[facility] lear if he follows with pulmonary as an outpatient . Hypertensi ve heart disease with congestive heart failure 0828865 I11.0 I50.31 81786396 Improved with diuresis.C ontinue Jardiance (new), Metoprolol , Spironolac tone, and PRN Lasix.Cont inue supplement oxygen as above.Cont inue to trend blood pressures, monitor lytes and renal function, and adjust meds as clinically indicated. F/U with cards today (02/01). 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 Currently no chest pain.Jane nue Plavix, Metoprolol , and statin.F/U with cards as above. Interstiti al lung disease 441090083 J84.9 776256 SEE ABOVE... Benign pro static hyperplasia 145068376 N40.0 81309005 Currently no urinary symptoms. He was not discharged on any meds related to this.Reque sted home medication list to confirm no daily medication s.Monitor clinically . Hypothyroidism 19742626 E03.9 25334205 01/31/25 = TSH 1.176, Free T4 1.14Stable . Continue Synthroid. Cobalamin deficiency 190 069090 E53.8 44425 Presumed stable. Continue supplement . Obstructiv e sleep apnea syndrome 46537493 G47.33 813028 Stable. Continue nighttime cpap with O2 bleed. Impaired cognition 80455 6002 R41.89 805639 No former diagnosis of dementia. Head imaging noted moderate atrophy and ischemic small vessel disease.S T is following. Labs & UA were unremarkab le. Continue to monitor for reversible causes. Pt remains quite confused. Major depr essive disorder 082061392 F32.9 4590161560 Stable. Continue Sertraline . Monitor moods. Physical deconditioning 2402728820 9102 R53.81 099480 Related to advanced age, recent hospitaliz ation, and comorbidit ies.Contin ue therapies. He plans to return home alone upon d/c from [facility]. [id number] Bettina Yan, DO [place] [place] [address] 02/04/2025 21:09:40 02/06/2025 10:26:09 Lztyo-tb-kohdsai respiratory failure 20095089 J96.21 17054036 Sec to ILD and CHF. Improved with IV diuretics and an increase in his supplement al O2 up to 6 liters/min [place] during his hospitaliz ation. Now back to usual baseline of 2 liters/min [place]. Does not appear he was treated with antibiotic s or steroids.W ill check CXR in light of cough, weight gain and edem[place]ill schedule lasix routinely for now and monitor clinically RT to follow.[facility] andrea if he follows with pulmonary as an outpatient . 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 Currently no chest pain.Jane nue Plavix, Metoprolol , and statin.F/U with cards as above. Interstiti al lung disease 696784732 J84.9 340191 SEE ABOVE... Benign pro static hyperplasia 094387306 N40.0 80917335 Currently no urinary symptoms. He was not discharged on any meds related to this.Monit or clinically . Hypothyroidism 87418856 E03.9 03240401 01/31/25 = TSH 1.176, Free T4 1.14Stable . Continue Synthroid. Cobalamin deficiency 190 830629 E53.8 76553 Presumed stable. Continue supplement . Obstructiv e sleep apnea syndrome 14518422 G47.33 412314 Stable. Continue nighttime cpap with O2 bleed. Impaired cognition 97271 6002 R41.89 286178 No former diagnosis of dementia. Head imaging noted moderate atrophy and ischemic small vessel disease.S T is following. Labs & UA were unremarkab le. Continue to monitor for reversible causes. Pt remains quite confused. Major depr essive disorder 046241140 F32.9 2270132257 Stable. Continue Sertraline . Monitor moods. Physical deconditioning 0516567021 9102 R53.81 754643 Related to advanced age, recent hospitaliz ation, and comorbidit ies.Contin ue therapies. He plans to return home alone upon d/c from SNF - discharge is set for 02/13 Health Concerns Section Related Observation LastModified by Organization Detai ls LastModified Time None Recorded Concern Status LastModified by Organization Details LastModified Time None Recorded Payers Encounter Date Sequence Insurance Name Policy Number Policy Fernandez Covered Member ID Fernandez Member ID Guarantor Name 02/04/2025 2 [place] [id number] Abbe Jimenez [id number] Abbe Jimenez 02/04/2025 1 [place] Abbe Jimenez [id number] Abbe Jimenez Notes Date Note Type [...] [place] [address] [facility], [place], [address], [facility] 02/06/2025 06:14:27 02/06/2025 text/html F/U [...] breathing techniques and posture. Anahi Valladares, BRYNN [address] [facility], [place], [address], [place] [facility] 02/06/2025 18:42:39
--- OUTSIDE RECORDS SUMMARY | 2025-02-28 21:07 | XMS_ITS | Clinical Summary ---
Author Organization [facility] Address [address] [place] [address] Care Team Providers Care Architect Marine Name Role Phone Unavailable Primary Care Provider Unavailabl e Encounters Date Type Department Care Team Description 02/06/2025 3:25 PM DIRECTOR METABOLISM - 02/06/2025 11:59 PM DIRECTOR METABOLISM Hospital Encounter [facility] [place] [address] Anahi Valladares NP Discharge Disposition: Home or Self Care (Routine Discharge) 02/06/2025 Orders Only [facility] [place] [address] Anahi Valladares NP 01/19/2025 Telephone [facility] [address] [address] Brian Manrique MD Information from [...] - 1-dose 75+ series) 2016 PHQ-2 (Physician [place]) 03/22/2024 COVID-19 Vaccine (4 - 2024-2 6 [...] COMPREHENSIVE METABOLIC PANEL Routine 02/06/2025 12:59 PM DIRECTOR METABOLISM Anemia, unspecified Ill-defined descriptions and complications of heart disease from Last 3 Months Results * (ABNORMAL) COMPREHENSIVE METABOLIC PANEL (02/06/2025 12:59 PM DIRECTOR METABOLISM) GLUCOSE 105(H) 70 - 99 MG/DL 02/06/2025 3:51 PM DIRECTOR METABOLISM [facility] BUN 15 7 - 18 MG/DL 02/06/2025 3:51 PM [facility] CREATININE S/P/B 1.26 0.7 - 1.3 MG/DL 02/06/2025 3:51 PM [facility] SODIUM S/P/B 141 136 - 145 MMOL/L 02/06/2025 3:51 PM [facility] POTASSIUM S/P/B 3.7 3.5 - 5.1 MMOL/L 02/06/2025 3:51 PM [facility] CHLORIDE S/P/B 107 97 - 115 MMOL/L 02/06/2025 3:51 PM [facility] CO2 32.6(H) 21 - 32 MMOL/L 02/06/2025 3:51 PM [facility] CALCIUM S/P/B 8.7 8.5 - 10.1 MG/DL 02/06/2025 3:51 PM [facility] BILIRUBIN TOTAL S/P/B 0.9 0.2 - 1.2 MG/DL 02/06/2025 3:51 PM [facility] Comment: THIS ASSAY IS NOT RECOMMENDED FOR PATIENTS UNDERGOING TREATMENT WITH ELTROMBOPAG DUE TO THE POTENTIAL FOR FALSELY ELEVATED RESULTS. TOTAL PROTEIN S/P/B 6.2(L) 6.4 - 8.2 G/DL 02/06/2025 3:51 PM [facility] ALBUMIN S/P/B 3.3(L) 3.4 - 5.0 G/DL 02/06/2025 3:51 PM [facility] AST 28 15 - 37 U/L 02/06/2025 3:51 PM [facility] ALT 33 16 - 60 U/L 02/06/2025 3:51 PM [facility] ALKALINE PHOSPHATASE S/P/B 103 50 - 136 U/L 02/06/2025 3:51 PM [facility] ANION GAP 1.4(L) 2 - 10 MMOL/L 02/06/2025 3:51 PM [facility] BUN CREATININE RATIO 11.9 6 - 26 02/06/2025 3:51 PM [facility] A/G RATIO 1.1 1.0 - 2.0 RATIO 02/06/2025 3:51 PM [facility] GFR ESTIMATE 57(L) >90 ML/MIN/1.7 3 M2 02/06/2025 3:51 PM [facility] Comment: NOTE: eGFR is not calculated for patients <18 years of age or gender unknown. This is an estimated GFR calculation using the new CKD EPI creatinine equation without race and so does not require a correction factor for race. This estimated GFR should not be used for calculating drug doses. BLOOD VENOUS BLOOD SPECIMEN / Unknown 02/06/2025 12:59 PM DIRECTOR METABOLISM us Anahi Valladares [facility] Final Res ult [facility] [address] [place] [address], [place] [phone] from Last 3 Months Insurance
--- OUTSIDE RECORDS SUMMARY | 2025-02-28 21:07 | XMS_ITS | Clinical Summary ---
Author Organization [facility] Address [address] [place] [address] Phone Care Team Providers Care Blending Machine Feeder Name Role Phone Solo Salazar MD Primary Care Provider [phone] Allergies Active Allergy Reactions Criticality Noted Date [...] 12:35 PM CDT - 01/23/2025 3:10 PM HAND SIGN WRITER Hospital Encounter [facility] Medical/Surgical Intensive Care [address] [place] [address] Camden James MD Carmicheal, MD Guadalupe Greenberg [...] any time in the past [facility], were you homeless or living in a residential (including now)? No 01/19/2025 [facility] Utilities Answer Date Recorded In the past [...] Comments Blood Pressure 95/73 01/23/2025 12:00 PM HAND SIGN WRITER Pulse 59 01/23/2025 12:00 PM HAND SIGN WRITER Temperature 37.1 C (98.8 F) 01/23/2025 7:00 AM HAND SIGN WRITER Respiratory Rate 19 01/23/2025 12:00 PM HAND SIGN WRITER Oxygen Saturation 99% 01/23/2025 12:00 PM HAND SIGN WRITER Inhaled Oxygen Concentration - - Weight 75 kg (165 lb 5.5 oz) 01/22/2025 6:00 AM HAND SIGN WRITER Height 165.1 cm (5' 5) 01/19/2025 1:29 [...] Diagnosis Comments RHYTHM STRIP 01/23/2025 12:00 AM HAND SIGN WRITER RHYTHM STRIP 01/23/2025 12:00 AM HAND SIGN WRITER ADULT TRANS THORACIC ECHO 2D COMPLT W CONT Routine 01/22/2025 11:50 AM HAND SIGN WRITER CBC WITH AUTO DIFFERENTIAL Routine 01/22/2025 4:04 AM HAND SIGN WRITER COMPLETE BLOOD COUNT (CBC) WITH DIFF Routine 01/22/2025 4:04 AM HAND SIGN WRITER BASIC METABOLIC PANEL W/ CALCIUM TOTAL Routine 01/22/2025 4:04 AM HAND SIGN WRITER RHYTHM STRIP 01/22/2025 12:00 AM HAND SIGN WRITER RHYTHM STRIP 01/22/2025 12:00 AM HAND SIGN WRITER RHYTHM STRIP 01/22/2025 12:00 AM HAND SIGN WRITER RHYTHM STRIP 01/22/2025 12:00 AM HAND SIGN WRITER CBC WITH AUTO DIFFERENTIAL Routine 01/21/2025 4:05 AM HAND SIGN WRITER COMPLETE BLOOD COUNT (CBC) WITH DIFF Routine 01/21/2025 4:05 AM HAND SIGN WRITER BASIC METABOLIC PANEL W/ CALCIUM TOTAL Routine 01/21/2025 4:05 AM HAND SIGN WRITER POCT GLUCOSE Routine 01/21/2025 3:46 AM HAND SIGN WRITER RHYTHM STRIP 01/21/2025 12:00 AM CDT RHYTHM [...] Results * RHYTHM STRIP (01/23/2025 12:00 AM HAND SIGN WRITER) Only the most recent of12 resultswithin the time period is included. 01/23/2025 us Provider Scan IMG ECG ORDERABLES Final Result RESULTING AGENCY * ADULT TRANS THORACIC ECHO 2D COMPLT W CONT (01/22/2025 11:50 AM HAND SIGN WRITER) AV Peak Grad mmHg 4 mmHg RESULTING AGENCY Mean Aortic Valve Gradient (MAVG) 2 mmHg RESULTING AGENCY LV end ghislaine diam cm 5 cm RESULTING AGENCY LV end sys diam cm 3.8 cm RESULTING AGENCY Aortic Root Diam cm 3.7 cm RESULTING AGENCY LA vol index ml/m2 37 ml/m2 RESULTING AGENCY LVOT Peak Jeremie m/sec [id number] m/sec RESULTING AGENCY AV Peak Jeremie m/sec [...] CARDIO N/A Ultrasound Narrative 01/22/2025 12:38 PM HAND SIGN WRITER Transthoracic Echocardiography Report (TTE) Patient name ELENA Quintana Ced 1940 Patient ID (UPI) [id number] Indications: Congestive heart failure, diastolic dysfunction. Study [...] lbs. BMI (BSA) 27.46 kg/m^2 (1.82 m^2) Media Operator Miguel Stearns Room ICU-02 Interpreting [place] Referring Physician Cora Physician Procedure Note Cora Vides MD - 01/22/2025 Transthoracic Echocardiography Report (TTE) Patient name ELENA Quintana Ced 1940 Patient ID (UPI) [id number] Indications: Congestive heart failure, diastolic dysfunction. Study [...] lbs. BMI (BSA) 27.46 kg/m^2 (1.82 m^2) Media Operator Miguel Stearns Room ICU-02 Interpreting Vides Referring Physician Cora Physician us Pat Steen MD IMG ECHO ORDERABLES Edited Result - Final * (ABNORMAL) CBC with Auto Differential (01/22/2025 4:04 AM HAND SIGN WRITER) Only the most recent of4 resultswithin the time period is included. WBC 5.77 4.00 - 12.00 10(3)/mcL 01/22/2025 4:49 AM HAND SIGN WRITER [facility] RBC 3.89(L) 4.40 - 5.80 10(6)/mcL 01/22/2025 4:49 AM HAND SIGN WRITER [facility] HEMOGLOBIN (HGB) 12.7(L) 13.0 - 16.5 g/dL 01/22/2025 4:49 AM HAND SIGN WRITER [facility] HEMATOCRIT (HCT) 38.9 38.0 - 50.0 % 01/22/2025 4:49 AM HAND SIGN WRITER [facility] MCV 100.0(H) 82.0 - 96.0 fL 01/22/2025 4:49 AM [facility] MCH 32.6(H) 26.0 - 32.0 pg 01/22/2025 4:49 AM [facility] MCHC 32.6 31.0 - 36.0 g/dL 01/22/2025 4:49 AM [facility] PLATELET COUNT 120(L) 140 - 440 10(3)/mcL 01/22/2025 4:49 AM [facility] RDW 14.4 11.8 - 15.5 % 01/22/2025 4:49 AM [facility] MPV 9.9 8.0 - 12.6 fL 01/22/2025 4:49 AM [facility] NEUTROPHILS 58.6 40.0 - 68.0 % 01/22/2025 4:49 AM [facility] LYMPHOCYTES 28.2 19.0 - 49.0 % 01/22/2025 4:49 AM [facility] MONOCYTES 8.7 3.0 - 13.0 % 01/22/2025 4:49 AM [facility] EOSINOPHILS 4.0 0.0 - 8.0 % 01/22/2025 4:49 AM [facility] BASOPHILS 0.3 0.0 - 1.0 % 01/22/2025 4:49 AM [facility] IMMATURE GRANULOCYTE 0.2 0.0 - 0.4 % 01/22/2025 4:49 AM [facility] ABSOLUTE NEUTROPHILS 3.38 1.40 - 5.30 10(3)/mcL 01/22/2025 4:49 AM [facility] ABSOLUTE LYMPHOCYTES 1.63 0.90 - 3.30 10(3)/mcL 01/22/2025 4:49 AM [facility] ABSOLUTE MONOCYTES 0.50 0.10 - 0.90 10(3)/mcL 01/22/2025 4:49 AM [facility] ABSOLUTE EOSINOPHIL 0.23 0.00 - 0.50 10(3)/mcL 01/22/2025 4:49 AM HAND SIGN WRITER [facility] ABSOLUTE BASOPHILS 0.02 0.00 - 0.10 10(3)/mcL 01/22/2025 4:49 AM HAND SIGN WRITER [facility] ABSOLUTE IMMATURE GRANULOCYTE 0.01 0.00 - 0.03 10 (3) mcL. 01/22/2025 4:49 AM [facility] NRBC PER 100 WBC 0 01/23/20 4:49 AM [facility] RESULTS ARE CONSISTENT WITH PERIPHERAL SMEAR REVIEW Yes 01/22/2025 4:49 AM [facility] Blood Venipuncture / Unknown 01/22/2025 4:04 AM HAND SIGN WRITER 01/22/2025 4:21 AM HAND SIGN WRITER us Antonella Kerr INTERFACE DEVELOPER, SOLDERER DIPPER HEMATOLOGY ORDERABLES F inal Result [facility] [address] [place] [address] * (ABNORMAL) BMP with Ca, Total (01/22/2025 4:04 AM HAND SIGN WRITER) Only the most recent of3 resultswithin the time period is included. SODIUM 142 136 - 145 mmol/L 01/22/2025 4:47 AM [facility] POTASSIUM 4.0 3.5 - 5.1 mmol/L 01/22/2025 4:47 AM [facility] CHLORIDE 102 98 - 107 mmol/L 01/22/2025 4:47 AM [facility] CO2, VENOUS 31(H) 22 - 30 mmol/L 01/22/2025 4:47 AM [facility] ANION GAP 13.0 <18.0 mmol/L 01/22/2025 4:47 AM [facility] GLUCOSE 82 70 - 99 mg/dL 01/22/2025 4:47 AM [facility] BUN 20 8 - 26 mg/dL 01/22/2025 4:47 AM HAND SIGN WRITER [facility] CREATININE, BLOOD 1.20 0.70 - 1.30 mg/dL 01/22/2025 4:47 AM HAND SIGN WRITER [facility] BUN/CREATININE RATIO 17 12 - 20 ratio 01/22/2025 4:47 AM [facility] CALCIUM 8.9 8.7 - 10.5 mg/dL 01/22/2025 4:47 AM HAND SIGN WRITER [facility] GFR, ESTIMATED 60 >=60 01/22/2025 4:47 AM HAND SIGN WRITER [facility] Comment: Creatinine Clearance is the preferred criteria for selecting drug dose adjustments in renally impaired patients. The GFR is provided as additional pertinent clinical information. GFR is reported in mL/min/1.73 sq m. Calculation based on the 2020 Chronic Kidney Disease Epidemiology Collaboration (CKD-EPI) equation refit without adjustment for race. GFR, EST. >60 >=60 025 4:47 AM HAND SIGN WRITER [facility] Comment: Creatinine Clearance is the preferred criteria for selecting drug dose adjustments in renally impaired patients. The GFR is provided as additional pertinent clinical information. GFR is reported in mL/min/1.73 sq m. Calculation based on the 2009 Chronic Kidney Disease Epidemiology Collaboration (CKD-EPI). GFR, EST. NONAFRICAN 58(L) >=60 01/22/2025 4:47 AM [facility] Comment: Creatinine Clearance is the preferred criteria for selecting drug dose adjustments in renally impaired patients. The GFR is provided as additional pertinent clinical information. GFR is reported in mL/min/1.73 sq m. Calculation based on the 2009 Chronic Kidney Disease Epidemiology Collaboration (CKD-EPI). Blood Venipuncture / Unknown 01/22/2025 4:04 AM HAND SIGN WRITER 01/22/2025 4:21 AM HAND SIGN WRITER us Antonella Kerr INTERFACE DEVELOPER, SOLDERER DIPPER CHEMISTRY ORDERABLES Fi nal Result [facility] [address] [place] [address] * POCT Glucose (01/21/2025 3:46 AM HAND SIGN WRITER) [facility] GLUCOSE,BEDSIDE POCT 96 70 - 99 mg/dL 01/21/2025 3:47 AM HAND SIGN WRITER [facility] Blood 01/21/2025 3:46 AM HAND SIGN WRITER 01/21/2025 3:47 AM HAND SIGN WRITER None Provider POINT OF CARE TESTING Final Resu lt Performing Organization Address City/[facility]/ZIP Co de Phone Number [facility] [address] [place] [address] * TROPONIN I, HIGH SENSITIVITY (HSTRP) (01/19/2025 8:06 PM CDT) Only the most recent of3 resultswithin the time period is included. [facility] TROPONIN I, HIGH SENSITIVITY- HURT 32.0 <=35.0 ng/L 01/19/2025 8:38 PM CDT [facility] Comment: High-sensitivity troponin I results are reported in ng/L making the result appear to be 1,000 times higher than the contemporary troponin I value which is reported in ng/ml. Results from [place]. Blood Venipuncture / Unknown 01/19/2025 8:06 PM CDT 01/19/2025 8:12 PM CDT us Camden James MD CHEMISTRY ORDERABLES Valerie l Result [facility] [address] [place] [address] * (ABNORMAL) Urinalysis w/ Reflex (01/19/2025 6:59 PM CDT) [facility] SPECIFIC GRAVITY 1.010 1.003 - 1.030 01/19/2025 8:17 PM CDT [facility] URINE PH 7.0 5.0 - 9.0 01/19/2025 8:17 PM CDT [facility] WBC ESTERASE Negative Negative 01/19/2025 8:17 PM CDT [facility] NITRITE Negative Negative 01/19/2025 8:17 PM CDT [facility] PROTEIN, RANDOM URINE 15 mg/dL(A) Negative 01/19/2025 8:17 PM CDT [facility] URINE GLUCOSE, QUAL Negative Negative 01/19/2025 8:17 PM CDT [facility] URINE KETONES Negative Negative 01/19/2025 8:17 PM CDT [facility] UROBILINOGEN Normal Normal mg/dL 01/19/2025 8:17 PM CDT [facility] URINE BLOOD Negative Negative magdalena/ul 01/19/2025 8:17 PM CDT [facility] URINALYSIS COLOR Yellow 01/20/20 8:17 PM CDT [facility] URINALYSIS CLARITY Clear 01/19/2025 8:17 PM CDT [facility] Urine URINE SPECIMEN / Unknown Non-Phlebotomy Collection / Unknown 01/19/2025 6:59 PM CDT 01/19/2025 8:12 PM CDT us Camden James MD URINE ORDERABLES Final Re sult [facility] [address] [place] [address] * CT CHEST W/O CONTRAST (01/19/2025 1:55 [...] 01/19/2025 1:55 PM DICTATING PHYSICIAN: NATE IGNACIO [facility]. HISTORY: As below. ADDITIONAL TECHNOLOGIST [...] 01/19/2025 1:55 PM DICTATING PHYSICIAN: NATE IGNACIO [facility]. HISTORY: As below. ADDITIONAL TECHNOLOGIST HISTORY: [...] small vessel disease. us Camden James MD [facility] [place] ORDERABLES Final R esult * (ABNORMAL) Blood Gases, Venous w/ O2 Saturation (01/19/2025 1:05 PM CDT) O2 STATUS 2L 01/19/2025 1:09 PM CDT [facility] Comment:Post EMS nebulizer PH VENOUS 7.38 7.34 - 7.43 01/19/2025 1:09 PM CDT [facility] PCO2 (VENOUS) 46 41 - 51 mmHg 01/19/2025 1:09 PM CDT [facility] PO2 VENOUS 44 30 - 50 mmHg 01/19/2025 1:09 PM CDT [facility] O2 SAT DAWIT, MEASURED 65 60 - 85 % 12/22 1:09 PM CDT [facility] BICARBONATE 27.6(H) 22.0 - 26.0 mmol/L 01/19/2025 1:09 PM CDT [facility] BASE VENOUS 2.6 -2.0 - 3.0 mmol/L 01/19/2025 1:09 PM CDT [facility] CARBOXYHEMOGLOBIN 3.3 0.0 - 5.0 % 01/19/2025 1:09 PM CDT [facility] METHEMOGLOBIN 0.3 0.0 - 1.5 % 01/19/2025 1:09 PM CDT [facility] DAWIT Blood Gas VENOUS STRUCTURE / Unknown Venipuncture / Unknown 01/19/2025 1:05 PM CDT 01/19/2025 1:06 PM CDT Narrative [facility] - 01/19/2025 1:09 PM CDT Interpretation [...] CHEMISTRY ORDERABLES Valerie rios Result [facility] [address] [place] [address] * XR CHEST SINGLE VIEW PORTABLE (01/19/2025 1:04 PM CDT) Anatomical Region Laterality Modality Chest N/A Digital Radiogra phy 01/19/2025 1:04 PM CDT Impressions 01/20/2025 1:18 PM CDT IMPRESSION: 1. Background changes of pulmonary fibrosis. Superimposed infection is possible. Narrative 01/20/2025 1:18 PM CDT DICTATING PHYSICIAN: Natalee Richards M.D., [facility] EXAM: XR CHEST SINGLE VIEW [...] - 01/20/2025 DICTATING PHYSICIAN: Natalee Richards M.D., [facility] EXAM: XR CHEST SINGLE VIEW PORTABLE [...] surrogate Care discussed with: admitting provider Camden aJmes MD PROCEDURE/MINOR SURGICAL ORDERABLES Final Result * (ABNORMAL) NT-proBNP (01/19/2025 12:47 PM CDT) NT PROBNP 3,851.3(H) <450.0 pg/mL 01/19/2025 1:35 PM CDT [facility] Comment: AGE pg/mL INTERPRETATION All [...] ORDERABLES Valerie l Result Performing Organization Address City/[facility]/ZIP Co de Phone Number [facility] [address] [place] [address] * RSV,SARS-COV-2,INFLUENZA A&B BY PCR (01/19/2025 12:47 PM CDT) FLU A Negative Negative, Error 01/19/2025 1:51 PM CDT [facility] FLU B Negative Negative 01/19/2025 1:51 PM CDT [facility] RESP SYNC VIRUS Negative Negative 1:51 PM CDT [facility] SARSCOV2 NOT DETECTED (Reference Range for this test is Not Detected) 01/19/2025 1:51 PM CDT [facility] Comment:This test was perfor med by a Reverse Marketing Automation Analyst PCR Method. Nasal NASOPHARYNGEAL SWAB / Unknown Non-Phlebotomy Collection / Unknown 01/19/2025 12:47 PM CDT 01/19/2025 1:09 PM CDT Camden James MD MICROBIOLOGY - GENERAL OR DERABLES Final Result Performing Organization Address City/[facility]/ZIP Co de Phone Number [facility] [address] [place] [address] * Magnesium (01/19/2025 12:47 PM CDT) MAGNESIUM 2.0 1.6 - 2.6 mg/dL 01/19/2025 1:31 PM CDT [facility] Blood Venipuncture / Unknown 01/19/2025 12:47 PM CDT 01/19/2025 1:09 PM CDT us Camden James MD CHEMISTRY ORDERABLES Valerie blanca Result [facility] [address] [place] [address] * (ABNORMAL) CMP (Comprehensive Metabolic Panel) (01/19/2025 12:47 PM CDT) SODIUM 142 136 - 145 mmol/L 01/19/2025 1:31 PM CDT [facility] POTASSIUM 4.0 3.5 - 5.1 mmol/L 01/19/2025 1:31 PM CDT [facility] CHLORIDE 106 98 - 107 mmol/L 01/19/2025 1:31 PM CDT [facility] CO2, VENOUS 26 22 - 30 mmol/L 01/19/2025 1:31 PM CDT [facility] ANION GAP 14.0 <18.0 mmol/L 01/19/2025 1:31 PM CDT [facility] GLUCOSE 109(H) 70 - 99 mg/dL 01/19/2025 1:31 PM CDT [facility] BUN 15 8 - 26 mg/dL 01/19/2025 1:31 PM CDT [facility] CREATININE, BLOOD 1.30 0.70 - 1.30 mg/dL 01/19/2025 1:31 PM CDT [facility] BUN/CREATININE RATIO 12 12 - 20 ratio 01/19/2025 1:31 PM CDT [facility] TOTAL PROTEIN 6.5 6.0 - 8.0 g/dL 01/19/2025 1:31 PM CDT [facility] ALBUMIN 3.6 3.5 - 5.0 g/dL 01/19/2025 1:31 PM CDT [facility] A/G RATIO 1.2 1.0 - 2.2 01/19/2025 1:31 PM CDT [facility] CALCIUM 9.4 8.7 - 10.5 mg/dL 01/19/2025 1:31 PM CDT [facility] T BILI 1.6(H) 0.2 - 1.2 mg/dL 01/19/2025 1:31 PM CDT [facility] SGOT (AST) 31 <43 U/L 01/19/2025 1:31 PM CDT [facility] SGPT (ALT) 21 <56 U/L 01/19/2025 1:31 PM CDT [facility] ALKALINE PHOSPHATASE 102 40 - 150 U/L 01/19/2025 1:31 PM CDT [facility] GFR, ESTIMATED 55(L) >=60 01/19/2025 1:31 PM CDT [facility] Comment: Creatinine Clearance is the preferred criteria for selecting drug dose adjustments in renally impaired patients. The GFR is provided as additional pertinent clinical information. GFR is reported in mL/min/1.73 sq m. Calculation based on the 2020 Chronic Kidney Disease Epidemiology Collaboration (CKD-EPI) equation refit without adjustment for race. GFR, EST. >60 >=60 1:31 PM CDT [facility] Comment: Creatinine Clearance is the preferred criteria for selecting drug dose adjustments in renally impaired patients. The GFR is provided as additional pertinent clinical information. GFR is reported in mL/min/1.73 sq m. Calculation based on the 2009 Chronic Kidney Disease Epidemiology Collaboration (CKD-EPI). GFR, EST. NONAFRICAN 53(L) >=60 01/19/2025 1:31 PM CDT [facility] Comment: Creatinine Clearance is [...] ORDERABLES Valerie l Result Performing Organization Address City/[facility]/ZIP Co de Phone Number [facility] [address] [place] [address] * EKG 12 LEAD (01/19/2025 12:41 PM CDT) Ventricular Rate 78 BPM EXTERNAL EKG Atrial Rate 78 BPM EXTERNAL EKG P-R Interval 264 ms EXTERNAL EKG QRS Duration 138 ms EXTERNAL EKG Q-T Duration 444 ms EXTERNAL EKG QTC CALCULATION 506 ms EXTERNAL EKG P [place] 15 degrees EXTERNAL EKG R [place] 254 degrees EXTERNAL EKG T [place] 46 degrees EXTERNAL EKG 01/19/2025 12:4 1 PM CDT Impressions EXTERNAL EKG - 01/20/2025 4:32 PM CDT Sinus rhythm with 1st degree AV block with premature atrial complexes Right superior axis deviation Nonspecific intraventricular block T wave abnormality, consider anterior ischemia Abnormal ECG No previous ECGs available Confirmed by Pamela Buckner ([id number]) on 01/20/2025 4:32:15 PM Narrative Procedure Note Pamela Buckner MD - 01/20/2025 IMPRESSION: Sinus rhythm with 1st degree AV block with premature atrial complexes Right superior axis deviation Nonspecific intraventricular block T wave abnormality, consider anterior ischemia Abnormal ECG No previous ECGs available Confirmed by Pamela Buckner ([id number]) on 01/20/2025 4:32:15 PM us Camden Jamse MD IMG ECG ORDERABLES Final Result EXTERNAL EKG * EKG SCAN (01/19/2025 12:00 AM CDT) 01/19/2025 us Provider Scan IMG ECG ORDERABLES Final Result RESULTING AGENCY from Last [address] [facility] Advance Directives Documents on File Type Date Recorded Patient Travel Agent Expl anation Power of Director [employer] 01/22/2025 5:00 AM POA-HC, 01/19/2025 Power of Director [employer] 01/22/2025 4:55 AM POA-HC, 03/10/2022 * Full Code (Latest Code Status on File) Date Activated Date Inactivated Comments 01/19/2025 4:06 PM CPR-Full Shari tment: FULL ARREST: Attempt Resuscitation/CPR wit intubation and mechanical ventilation. PRE-ARREST: Use entire range of life support measures to stabilize the patient. Care Teams Blending Machine Feeder Relationship Specialty Start Date End Date Solo Salazar MD [address] [place] [address] PCP - General Family Medicine 01/19/25
== END 2025-02-28 18:40 ==
PROVIDERS: Emergency Provider Physician Assistant; PCP Family Medicine
DX: S09.90XA Unspecified injury of head, initial encounter (principal); S16.1XXA Strain of muscle, fascia and tendon at neck level, initial encounter; S73.101A Unspecified sprain of right hip, initial encounter; W19.XXXA Unspecified fall, initial encounter; F03.90 Unspecified dementia, unspecified severity, without behavioral disturbance, psychotic disturbance, mood disturbance, and anxiety; I10 Essential (primary) hypertension; E78.5 Hyperlipidemia, unspecified; I25.10 Atherosclerotic heart disease of native coronary artery without angina pectoris; E03.9 Hypothyroidism, unspecified; J96.11 Chronic respiratory failure with hypoxia; Z99.81 Dependence on supplemental oxygen; Z79.82 Long term (current) use of aspirin
CPT/HCPCS: 70450; 71045; 72125; 73030; 73502; 99284